=== PATIENT | female | born 1930 | race Caucasian/White ===

== ENCOUNTER → 2017-01-11 | Outpatient (REF) | payer MEDICARE, BC, OTHER ==
[~2017-01-11] MED LIST: ACET500C PO; ALLE180T33 PO; ALLOPOW4 PO; ALPH300C PO; ALTA10CA OR; AMIT25TA2 OR; ATOR1TAB21 PO; BABY81CH OR; BACLOFEN PO; BIOT1CAP2 PO; CALC250T PO; CALC600T7 PO; COLA100C2 OR; FERR325T OR; FIBEPOW PO; FIBER THERAPY PO; FISH500C PO; FLUV40CA PO; FURO80TA2 OR; GABA300C3 PO; GABA600T3 OR; GLUC500T3 OR; GLUCTAB6 PO; GOUT MED PO; KLOR20PO PO; LASI80TA OR; LEVO25TA34 PO; LOSA100T36 PO; LOTRCRE TOP; LOVA20TA2 OR; MAGN250T OR; MOME50SP; MULTIVIT PO; MYRB25TA PO; NEUR100C OR; OMEGA FISH OIL PO; OMEP20TA7 PO; OSTEO BIOFLEX PO; OYST500T OR; PRED5TAB PO; PROCRIT3000 MG/ML IJ; STOO100C PO; TRIC145T19 PO; VITA100T OR; VITA200016 PO; VOLT1GEL24 TD; [UNRECOGNIZED DRUG - CODE] OR; [UNRECOGNIZED DRUG - OTHER]; [UNRECOGNIZED DRUG - OTHER] PO; [UNRECOGNIZED DRUG - REMARK] PO; vicodin OR
== END ==
LOC: M LAB REF 15:01
PROVIDERS: ATTEND Internal Medicine
DX: E78.2 Mixed hyperlipidemia (principal)

== ENCOUNTER → 2017-02-07 | Outpatient (CLI) | payer MEDICARE, BC, OTHER ==
[~2017-02-07] MED LIST changes: +GABA-282 PO; -GABA300C3 PO
--- NOTE | 2017-02-12 01:41 | ECWPNPC ---
PATIENT NAME: JULIO GALLARDO : 1930 GENDER: FEMALE VISIT DATE: 02/07/2017 DISCHARGE DATE: 02/07/17 1040 VISIT LOCKED DATE TIME: PHYSICIAN: MISAEL BLAND RESOURCE: MISAEL BLAND REASON FOR APPOINTMENT 1. BACK HISTORY OF PRESENT ILLNESS HISTORY OF PRESENT ILLNESS: PAIN THE PATIENT DESCRIBES THE PAIN... FALL RISK SCREENING: SCREENING :NO FALLS IN THE PAST YEAR TODAY'S VISIT: NOTES: RATES PAIN TODAY . IS CURRENTLY ATTENDING PHYSICAL THERAPY FOR THE BACK. IS FINDING THAT THIS HAS HELPFUL FOR BALANCE, QUAD STRENGTHENING AND HAS HELPED IMPROVE PAIN CONTROL. IS DOING HOME EXERCISE PROGRAM. HAS INCREASED WALING TO 4-6000 STEPS PER DAY. . CURRENT MEDICATIONS TAKING ALLOPURINOL 100 MG TABLET 2 ORALLY ONCE A DAY, NOTES: 06-17-161199 TAKING FUROSEMIDE 80 MG TABLET 2 TABLETS ORALLY BID, NOTES: 06-17-16899 TAKING OMEPRAZOLE 20 MG TABLET DELAYED RELEASE 1 ORALLY BID, NOTES: 06-17-16-0 TAKING FERROUS SULFATE 325 (65 FE) MG TABLET 1 TABLET ORALLY ONCE A DAY, NOTES: 06-17-161199 TAKING LOSARTAN POTASSIUM 100 MG TABLET 1 TABLET ORALLY ONCE A DAY, NOTES: 06-17-16899 TAKING POTASSIUM CHLORIDE ER 10 MEQ CAPSULE EXTENDED RELEASE 2 CAPSULES WITH FOOD ORALLY DAILY, NOTES: 06-17-16899 TAKING GABAPENTIN 300 MG CAPSULE 1 CAPSULE IN A.M. 2 CAPS AT BEDTIME ORALLY , NOTES: 06-17-161799 TAKING ASPIR-81 81 MG TABLET DELAYED RELEASE 1 TABLET ORALLY ONCE A DAY, NOTES: 06-17-16899 TAKING STOOL SOFTENER 100 MG CAPSULE 1 CAPSULE NEEDED ORALLY ONCE A DAY, NOTES: 06-17-161799 TAKING FIBER THERAPY 500 MG TABLET 2 TABLETS NEEDED ORALLY DAILY, NOTES: 06-17-161799 TAKING WOMENS DAILY FORMULA TABLET ORALLY DAILY, NOTES: 06-17-161199 TAKING FISH OIL BURP-LESS 1000 MG CAPSULE 1 CAPSULE ORALLY TWICE A DAY, NOTES: 06-17-16899 TAKING CALCIUM CITRATE-VITAMIN D 500-500 MG-UNIT TABLET CHEWABLE ORALLY TWICE A DAY, NOTES: 06-17-161199 TAKING OSTEO BI-FLEX ADV TRIPLE ST TABLET 1 ORALLY TWICE DAILY, NOTES: 06-17-161199 TAKING TYLENOL EXTRA STRENGTH 500 MG TABLET 2 TABS ORALLY EVERY 6 HRS NEEDED, NOTES: 06-17-16 2200 TAKING VITAMIN D 2000 UNIT TABLET 1 TABLET ORALLY ONCE A DAY, NOTES: 06-17-16 1800 TAKING BIOTIN 5000 MCG TABLET 1 TABLET ORALLY BID, NOTES: 06-17-16 0900 TAKING ATORVASTATIN CALCIUM 20 MG TABLET 1 TAB ORALLY BEFORE BEDTIME, NOTES: 06-17-16 2100 TAKING LEVOTHYROXINE SODIUM 50 MCG TABLET 1 TABLET ORALLY ONCE A DAY, NOTES: 06-16-16 NOT-TAKING VALIUM 5 MG TABLET 1 TABLET ORALLY ON ARRIVAL TO CLINIC FOR TREATMENT MDD=1, NOTES: 06-18-16 1008 NOT-TAKING MAGNESIUM OXIDE 400 MG TABLET ORALLY BID NOT-TAKING LEVOXYL 50 MCG TABLET 1 TABLET ORALLY ONCE A DAY NOT-TAKING DOCUSATE SODIUM 250 MG CAPSULE 1 CAPSULE NEEDED ORALLY ONCE A DAY NOT-TAKING ALPHA LIPOIC ACID 300 MG CAPSULE ORALLY BID NOT-TAKING CLOTRIMAZOLE-BETAMETHASONE 1-0.05 % CREAM 1 APPLICATION TO AFFECTED AREA EXTERNALLY TWICE A DAY NOT-TAKING NASONEX 50 MCG/ACT SUSPENSION 2 SPRAYS IN EACH NOSTRIL NASALLY ONCE A DAY MEDICATION LIST REVIEWED AND RECONCILED WITH THE PATIENT PAST MEDICAL HISTORY HYPERLIPIDEMIA DIABETIC--DIET CONTROLLED INCREASED 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 NO . CHILLS NO . FEVER NO . INFECTION: DO YOU HAVE NEW INFECTIONS? NO . DO YOU HAVE HISTORY OF MRSA? NO . MUSCULOSKELETAL: ANY NEW PATTERNS OF PAIN OR NUMBNESS? NO . GASTROENTEROLOGY: ANY NEW CHANGE IN BOWEL CONTROL? NO . GENITOURINARY: ANY NEW CHANGE IN BLADDER CONTROL? NO . IS THERE A CHANCE YOU COULD BE ? NO . HEMATOLOGY/LYMPH: DO YOU TAKE ANY BLOOD THINNERS? (FOR EXAMPLE- COUMADIN, PLAVIX, AGGRENOX, PLATEL, PRADAXA, OR XARELTO) NO . WHEN WAS YOUR LAST DOSE? DATE: TIME: . NEUROLOGY: HAVE YOU FALLEN IN THE PAST 6 MONTHS? NO . ANY NEW EXTREMITY NUMBNESS OR WEAKNESS? NO . CARDIOLOGY: DO YOU HAVE A PACEMAKER OR DEFIBRILLATOR? NO . RESPIRATORY: HAVE YOU BEEN SICK IN THE PAST WEEK? NO . FEVER NO . FLU LIKE SYMPTOMS? NO . COUGH NO . INTEGUMENTARY: DO YOU HAVE ANY RASHES OR OPEN SORES? NO . ALLERGIC/IMMUNO: ARE YOU ALLERGIC TO SHELLFISH OR IV DYE? NO . ANY NEW ALLERGIES? NO . PSYCHIATRIC: DO YOU HAVE THOUGHTS OF HURTING YOURSELF OR SOMEONE ELSE? NO . ARE YOU ABUSED, NEGLECTED, OR IN AN UNSAFE ENVIRONMENT? NO . ENDOCRINOLOGY: ARE YOU DIABETIC? YES--DIET CONTROLLED . OTHER: DO YOU NEED ANY PRESCRIPTIONS? NO . IF YES, PLEASE LIST: ____ . ANY NEW PROBLEMS WITH YOUR MEDICATIONS? NO . WHEN DID YOU LAST EAT? ____ . WHEN DID YOU LAST DRINK? ____ . WHAT DID YOU LAST DRINK? ____ . NAME OF PERSON DRIVING YOU HOME? ____ . DO YOU HAVE ANY OTHER QUESTIONS OR CONCERNS NO . REVIEWED BY: PROVIDER: MISAEL LUCIO . VITAL SIGNS WT 215.8 LBS, HT 61 IN, BMI 40.77 INDEX, BP 163/67 MM HG, HR 71 /MIN, RR 18 /MIN, TEMP 97.6 F, OXYGEN SAT % 96%, NA INITIALS TL 0951, REVIEWED BY: AD. EXAMINATION GENERAL EXAMINATION: PSYCHALERT , ORIENTED X 3 , APPROPRIATE MOOD AND AFFECT . LUNGS:CLEAR TO AUSCULTATION BILATERALLY. HEART:HEART RATE REGULAR. MUSCULOSKELETAL:MUSCLE STRENGTH TESTING 5/5 BILATERAL LOWER EXTREMITIES. NEGATIVE FOR PAIN OVER LOW BACK AND SACRUM. ABLE TO RISE TO STANDING POSITION WITH MINIMAL DIFFICULTY. POSTURE UPRIGHT. GAIT NONANTALGIC. TENDER TO PALPATION BILATERALLY OVER KNEES.. EXTREMITIES:SUPPORT STOCKINGS IN PLACE BILATERALLY. NO LOWER EXTREMITY EDEMA.. 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 CONTINUE PHYSICAL THERAPY. CONTINUE EXERCISES AND STRETCHETCHES AT HOME. PLAN TO HAVE BACK INJECTION IN MAY. CALL IF BACK INCREASES., FALLS CARE PLAN: 1. RECOMMEND REMOVING ALL THROW RUGS. 2. RECOMMEND NIGHT LIGHTS 3. RECOMMEND WEARING RUBBER SOLED SHOES AND TO NOT GO BAREFOOT. 4.. ADVISED TO CHANGE POSITION SLOWLY FROM SUPINE TO STANDING TO AVOID DIZZINESS. 5. ADVISED TO USE ASSISTIVE DEVICE SUCH CANE WHEN NEEDED. 6. KEEP PORTABLE PHONE CLOSE TO HAND., #128 - SCREENING BMI AND F/U PLAN IN : BMI ABOVE NORMAL TODAY. DISCUSSED WITH PATIENT NUTRITIONAL FOOD CHOICES TO ASSIST WITH WEIGHT LOSS. RECCOMMENDED REDUCING SALT, SUGAR, SODA INTAKE. RECOMMEND INCREASE ACTIVITY TO INCLUDE WALKING ON A REGULAR BASIS. PROCEDURE CODES FA211 ESTABILISHED PATIENT [facility] FACILITY CHARGE G8783 BP SCR PRFRM RCMDD DEFIND SCR INTVL G8730 PAIN ASSESS POS TOOL F/U PLAN DOC 3016F PT SCRND UNHLTHY OH USE 1124F ACP DISCUSS-NO DSCNMKR DOCD 1036F TOBACCO NON-USER 0518F FALL PLAN OF CARE DOCD G8427 DOC MEDS VERIFIED W/PT OR RE G8417 BMI >=30 CALCUATE W/FOLLOWUP 3288F FALL RISK ASSESSMENT DOCD DISPOSITION & COMMUNICATION FOLLOW UP MID APRIL ELECTRONICALLY SIGNED BY GELACIO COE ON 02/11/2017 AT 01:28 PM EDT DISCLAIMER : THIS IS A VISIT SUMMARY EXTRACTED FROM THE [employer] CHART. IT IS NOT A COPY OF THE [employer] PROGRESS NOTE. MTDD
== END ==
LOC: M PAIN 09:40
PROVIDERS: ATTEND Nurse Practitioner Family
DX: Z09 Encounter for follow-up examination after completed treatment for conditions other than malignant neoplasm (principal); G89.29 Other chronic pain; M47.816 Spondylosis without myelopathy or radiculopathy, lumbar region; M47.817 Spondylosis without myelopathy or radiculopathy, lumbosacral region; M25.561 Pain in right knee; M25.562 Pain in left knee; E78.5 Hyperlipidemia, unspecified; E11.9 Type 2 diabetes mellitus without complications; E78.1 Pure hyperglyceridemia; K44.9 Diaphragmatic hernia without obstruction or gangrene; N18.9 Chronic kidney disease, unspecified; Z88.0 Allergy status to penicillin; Z88.8 Allergy status to other drugs, medicaments and biological substances; Z79.82 Long term (current) use of aspirin; Z79.899 Other long term (current) drug therapy

== ENCOUNTER → 2017-04-30 | Outpatient (CLI) | payer MEDICARE, BC, OTHER ==
[~2017-04-30] MED LIST changes: +VOLT1GEL15 TD; -VOLT1GEL24 TD
--- NOTE | 2017-05-21 00:52 | ECWPNPC ---
PATIENT NAME: JULIO GALLARDO : 1930 GENDER: FEMALE VISIT DATE: 04/30/2017 DISCHARGE DATE: 04/30/17 1230 VISIT LOCKED DATE TIME: PHYSICIAN: MISAEL BLAND RESOURCE: MISAEL BLAND HISTORY OF PRESENT ILLNESS HISTORY OF PRESENT ILLNESS: PAIN THE PATIENT DESCRIBES THE PAIN... FALL RISK SCREENING: SCREENING :NO FALLS IN THE PAST YEAR TODAY'S VISIT: NOTES: RATES PAIN TODAY 6/10. NOTES PAIN IS CENTERED AT LOW BACK WITH RADIATION TO SACRUM AND DOWN BOTH LEGS TO LEVEL OF FEET. . CURRENT MEDICATIONS TAKING FUROSEMIDE 80 MG TABLET 2 TABLETS ORALLY BID TAKING ALLOPURINOL 100 MG TABLET 2 ORALLY ONCE A DAY TAKING OMEPRAZOLE 20 MG TABLET DELAYED RELEASE 1 ORALLY BID TAKING FERROUS SULFATE 325 (65 FE) MG TABLET 1 TABLET ORALLY ONCE A DAY TAKING LOSARTAN POTASSIUM 100 MG TABLET 1 TABLET ORALLY ONCE A DAY TAKING POTASSIUM CHLORIDE ER 10 MEQ CAPSULE EXTENDED RELEASE 2 CAPSULES WITH FOOD ORALLY DAILY TAKING GABAPENTIN 300 MG CAPSULE 1 CAPSULE IN A.M. 2 CAPS AT BEDTIME ORALLY TAKING ASPIR-81 81 MG TABLET DELAYED RELEASE 1 TABLET ORALLY ONCE A DAY TAKING STOOL SOFTENER 100 MG CAPSULE 1 CAPSULE NEEDED ORALLY ONCE A DAY TAKING FIBER THERAPY 500 MG TABLET 2 TABLETS NEEDED ORALLY DAILY TAKING WOMENS DAILY FORMULA TABLET ORALLY DAILY TAKING FISH OIL BURP-LESS 1000 MG CAPSULE 1 CAPSULE ORALLY TWICE A DAY TAKING CALCIUM CITRATE-VITAMIN D 500-500 MG-UNIT TABLET CHEWABLE ORALLY TWICE A DAY TAKING OSTEO BI-FLEX ADV TRIPLE ST TABLET 1 ORALLY TWICE DAILY TAKING TYLENOL EXTRA STRENGTH 500 MG TABLET 2 TABS ORALLY EVERY 6 HRS NEEDED TAKING VITAMIN D 2000 UNIT TABLET 1 TABLET ORALLY ONCE A DAY TAKING BIOTIN 5000 MCG TABLET 1 TABLET ORALLY BID TAKING ATORVASTATIN CALCIUM 20 MG TABLET 1 TAB ORALLY BEFORE BEDTIME TAKING LEVOTHYROXINE SODIUM 50 MCG TABLET 1 TABLET ORALLY ONCE A DAY NOT-TAKING VALIUM 5 MG TABLET 1 TABLET ORALLY ON ARRIVAL TO CLINIC FOR TREATMENT MDD=1, NOTES: 06-18-161007 NOT-TAKING MAGNESIUM OXIDE 400 MG TABLET ORALLY BID NOT-TAKING LEVOXYL 50 MCG TABLET 1 TABLET ORALLY ONCE A DAY NOT-TAKING DOCUSATE SODIUM 250 MG CAPSULE 1 CAPSULE NEEDED ORALLY ONCE A DAY NOT-TAKING ALPHA LIPOIC ACID 300 MG CAPSULE ORALLY BID NOT-TAKING CLOTRIMAZOLE-BETAMETHASONE 1-0.05 % CREAM 1 APPLICATION TO AFFECTED AREA EXTERNALLY TWICE A DAY NOT-TAKING NASONEX 50 MCG/ACT SUSPENSION 2 SPRAYS IN EACH NOSTRIL NASALLY ONCE A DAY MEDICATION LIST REVIEWED AND RECONCILED WITH THE PATIENT PAST MEDICAL HISTORY HYPERLIPIDEMIA DIABETIC--DIET CONTROLLED INCREASED 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 CONSTITUTIONAL: ANY CHANGE IN YOUR MEDICAL CONDITION? NO . CHILLS NO . FEVER NO . INFECTION: DO YOU HAVE NEW INFECTIONS? NO . DO YOU HAVE HISTORY OF MRSA? NO . MUSCULOSKELETAL: ANY NEW PATTERNS OF PAIN OR NUMBNESS? NO I IS HAVING SIGNIFICANT PAIN IN LEGS AND KNEES. SEES NCO. . GASTROENTEROLOGY: ANY NEW CHANGE IN BOWEL CONTROL? NO - HAD RECENT HEMMORROID BANDING WITH DR PECK . GENITOURINARY: ANY NEW CHANGE IN BLADDER CONTROL? NO . IS THERE A CHANCE YOU COULD BE ? NO . HEMATOLOGY/LYMPH: DO YOU TAKE ANY BLOOD THINNERS? (FOR EXAMPLE- COUMADIN, PLAVIX, AGGRENOX, PLATEL, PRADAXA, OR XARELTO) NO . WHEN WAS YOUR LAST DOSE? DATE: TIME: . NEUROLOGY: HAVE YOU FALLEN IN THE PAST 6 MONTHS? NO . ANY NEW EXTREMITY NUMBNESS OR WEAKNESS? NO . CARDIOLOGY: DO YOU HAVE A PACEMAKER OR DEFIBRILLATOR? NO . RESPIRATORY: HAVE YOU BEEN SICK IN THE PAST WEEK? NO . FEVER NO . FLU LIKE SYMPTOMS? NO . SHORTNESS OF BREATH ON EXERTION WAS HAVING TROUBLE WITH WALKING- HAD EVAL BUT NO PROBLEMS FOUND. . COUGH NO . INTEGUMENTARY: DO YOU HAVE ANY RASHES OR OPEN SORES? NO . ALLERGIC/IMMUNO: ARE YOU ALLERGIC TO SHELLFISH OR IV DYE? NO . ANY NEW ALLERGIES? NO . PSYCHIATRIC: DO YOU HAVE THOUGHTS OF HURTING YOURSELF OR SOMEONE ELSE? NO . ARE YOU ABUSED, NEGLECTED, OR IN AN UNSAFE ENVIRONMENT? NO . ENDOCRINOLOGY: ARE YOU DIABETIC? YES - HBA1C - 6.9 . OTHER: DO YOU NEED ANY PRESCRIPTIONS? NO . IF YES, PLEASE LIST: ____ . ANY NEW PROBLEMS WITH YOUR MEDICATIONS? NO . WHEN DID YOU LAST EAT? ____ . WHEN DID YOU LAST DRINK? ____ . WHAT DID YOU LAST DRINK? ____ . NAME OF PERSON DRIVING YOU HOME? ____ . DO YOU HAVE ANY OTHER QUESTIONS OR CONCERNS NO . VITAL SIGNS WT 219 LBS, HT 61 IN, BMI 41.38 INDEX, BP 154/67 MM HG, HR 69 /MIN, RR 20 /MIN, TEMP 97.8 F, OXYGEN SAT % 94%, NA INITIALS TL 1150, REVIEWED BY: KGPATIENT WAS WEIGHED ON PMC SCALE- TL. EXAMINATION GENERAL EXAMINATION: PSYCHALERT , ORIENTED X 3 , APPROPRIATE MOOD AND AFFECT . LUNGS:CLEAR TO AUSCULTATION BILATERALLY. HEART:HEART RATE REGULAR. MUSCULOSKELETAL:POINT TENDERNESS OVER LSA L>R. AND ACROSS THE SACRUM. . JOINTS:BILATERAL, KNEE , PAIN , SWELLING L>R. 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 PAIN IN RIGHT KNEE - M25.561 PAIN IN LEFT KNEE - M25.562 OTHER CHRONIC PAIN - G89.29 TREATMENT SPONDYLOSIS OF LUMBAR REGION WITHOUT MYELOPATHY OR RADICULOPATHY INJECTION FACET JOINT/NERVE LUMBAR/SACRAL (ORDERED FOR 04/30/2017)MISAEL BLAND 04/30/2017 12:16:26 PM > BILATERAL THERAPEUTIC LUMBAR FACET BLOCK L4-5 AND L5-S1 PROCEDURE CODES FA211 ESTABILISHED PATIENT [facility] FACILITY CHARGE G8730 PAIN ASSESS POS TOOL F/U PLAN DOC G8427 DOC MEDS VERIFIED W/PT OR RE DISPOSITION & COMMUNICATION FOLLOW UP DO INJECTION TOWARD END OF MAY - FOLLOWUP AFTER (REASON: [facility] AUTH BILATERAL THERAPEUTIC LUMBAR FACET BLOCK L4-5 AND L5-S1) ELECTRONICALLY SIGNED BY GELACIO COE ON 05/20/2017 AT 08:21 AM EDT DISCLAIMER : THIS IS A VISIT SUMMARY EXTRACTED FROM THE [employer] CHART. IT IS NOT A COPY OF THE [employer] PROGRESS NOTE. MICHELLE
== END ==
LOC: M PAIN 11:40
PROVIDERS: ATTEND Nurse Practitioner Family
DX: M47.816 Spondylosis without myelopathy or radiculopathy, lumbar region (principal); M47.817 Spondylosis without myelopathy or radiculopathy, lumbosacral region; M25.561 Pain in right knee; M25.562 Pain in left knee; G89.29 Other chronic pain; Z79.82 Long term (current) use of aspirin; Z79.899 Other long term (current) drug therapy; Z88.0 Allergy status to penicillin; Z88.6 Allergy status to analgesic agent

== ENCOUNTER → 2017-06-19 | Outpatient (CLI) | payer MEDICARE, BC, OTHER ==
[~2017-06-19] MED LIST changes: +BUPIVACAINE HCL 0.25% 30 ML VIAL As Ordered ONE; +ISOVUE-M 300 61% 15ML VIAL (Q9967) As Ordered ONE; +LIDOCAINE 1% SDV INJ 30 ML VIAL As Ordered ONE; +TRIAMCINOLONE ACETONIDE SUSP 40 MG/ML VIAL (J3301) As Ordered ONE
--- NOTE | 2017-06-19 16:26 | REP ---
FACET BLOCK: The images were reviewed with Dr. Yi. The patient has a history of low back pain. The portable C-Arm was provided in the OR for Dr. Becker for fluoroscopic guidance. Two intraoperative fluoroscopic spot films were obtained using last image hold technology for needle placement verification for bilateral lumbar facet injection. The films are on the PACs system and are available for review. 45 seconds of fluoroscopy time was utilized for this procedure. Reviewed by RUBINA Wade 06/20/2017 05:27 PEdited and Signed by Rosendo Yi MD 06/21/2017 04:56 P
--- NOTE | 2017-07-09 01:59 | ECWPNPC ---
PATIENT NAME: JULIO GALLARDO : 1930 GENDER: FEMALE VISIT DATE: 06/19/2017 DISCHARGE DATE: 06/19/17 1139 VISIT LOCKED DATE TIME: PHYSICIAN: ABIDA BISHOP RESOURCE: ABIDA BISHOP REASON FOR APPOINTMENT 1. BILATERAL THERAPEUTIC LUMBAR FACET BLOCK HISTORY OF PRESENT ILLNESS HISTORY OF PRESENT ILLNESS: PAIN THE PATIENT DESCRIBES THE PAIN... FALL RISK SCREENING: SCREENING :NO FALLS IN THE PAST YEAR CURRENT MEDICATIONS TAKING FUROSEMIDE 80 MG TABLET 2 TABLETS ORALLY BID, NOTES: 06/18/171800 TAKING ALLOPURINOL 100 MG TABLET 2 ORALLY ONCE A DAY, NOTES: 06/18/17@100 TAKING OMEPRAZOLE 20 MG TABLET DELAYED RELEASE 1 ORALLY BID, NOTES: 06/18/17 TAKING FERROUS SULFATE 325 (65 FE) MG TABLET 1 TABLET ORALLY ONCE A DAY, NOTES: TAKING LOSARTAN POTASSIUM 100 MG TABLET 1 TABLET ORALLY ONCE A DAY, NOTES: 06/18/17@999 TAKING POTASSIUM CHLORIDE ER 10 MEQ CAPSULE EXTENDED RELEASE 2 CAPSULES WITH FOOD ORALLY DAILY, NOTES: 06/18/17 TAKING GABAPENTIN 300 MG CAPSULE 1 CAPSULE IN A.M. 2 CAPS AT BEDTIME ORALLY , NOTES: 06/18/17 TAKING ASPIR-81 81 MG TABLET DELAYED RELEASE 1 TABLET ORALLY ONCE A DAY, NOTES: 06/18/17@999 TAKING STOOL SOFTENER 100 MG CAPSULE 1 CAPSULE NEEDED ORALLY ONCE A DAY, NOTES: 06/18/17 TAKING FIBER THERAPY 500 MG TABLET 2 TABLETS NEEDED ORALLY DAILY, NOTES: 06/18/17 TAKING WOMENS DAILY FORMULA TABLET ORALLY DAILY, NOTES: 06/18/17@1199 TAKING FISH OIL BURP-LESS 1000 MG CAPSULE 1 CAPSULE ORALLY TWICE A DAY, NOTES: 06/18/17 TAKING CALCIUM CITRATE-VITAMIN D 500-500 MG-UNIT TABLET CHEWABLE ORALLY TWICE A DAY, NOTES: 0 TAKING OSTEO BI-FLEX ADV TRIPLE ST TABLET 1 ORALLY TWICE DAILY, NOTES: 06/18/17 TAKING TYLENOL EXTRA STRENGTH 500 MG TABLET 2 TABS ORALLY EVERY 6 HRS NEEDED, NOTES: 06/18/17 TAKING VITAMIN D 2000 UNIT TABLET 1 TABLET ORALLY ONCE A DAY, NOTES: 06/18/17 TAKING BIOTIN 5000 MCG TABLET 1 TABLET ORALLY BID, NOTES: 06/18/17@1000 TAKING ATORVASTATIN CALCIUM 20 MG TABLET 1 TAB ORALLY BEFORE BEDTIME, NOTES: TAKING LEVOTHYROXINE SODIUM 50 MCG TABLET 1 TABLET ORALLY ONCE A DAY, NOTES: 06/19/17@0200 TAKING SUPER B COMPLEX 1 TAB ORALLY DAILY, NOTES: 06/18/17@1000 NOT-TAKING VALIUM 5 MG TABLET 1 TABLET ORALLY ON ARRIVAL TO CLINIC FOR TREATMENT MDD=1, NOTES: 06-18-16 100 NOT-TAKING MAGNESIUM OXIDE 400 MG TABLET ORALLY BID NOT-TAKING LEVOXYL 50 MCG TABLET 1 TABLET ORALLY ONCE A DAY NOT-TAKING DOCUSATE SODIUM 250 MG CAPSULE 1 CAPSULE NEEDED ORALLY ONCE A DAY NOT-TAKING ALPHA LIPOIC ACID 300 MG CAPSULE ORALLY BID NOT-TAKING CLOTRIMAZOLE-BETAMETHASONE 1-0.05 % CREAM 1 APPLICATION TO AFFECTED AREA EXTERNALLY TWICE A DAY NOT-TAKING NASONEX 50 MCG/ACT SUSPENSION 2 SPRAYS IN EACH NOSTRIL NASALLY ONCE A DAY MEDICATION LIST REVIEWED AND RECONCILED WITH THE PATIENT PAST MEDICAL HISTORY HYPERLIPIDEMIA DIABETIC--DIET CONTROLLED INCREASED 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 CONSTITUTIONAL: ANY CHANGE IN YOUR MEDICAL CONDITION? NO . CHILLS NO . FEVER NO . INFECTION: DO YOU HAVE NEW INFECTIONS? NO . DO YOU HAVE HISTORY OF MRSA? NO . MUSCULOSKELETAL: ANY NEW PATTERNS OF PAIN OR NUMBNESS? NO . GASTROENTEROLOGY: ANY NEW CHANGE IN BOWEL CONTROL? NO . GENITOURINARY: ANY NEW CHANGE IN BLADDER CONTROL? NO . IS THERE A CHANCE YOU COULD BE ? NO . HEMATOLOGY/LYMPH: DO YOU TAKE ANY BLOOD THINNERS? (FOR EXAMPLE- COUMADIN, PLAVIX, AGGRENOX, PLATEL, PRADAXA, OR XARELTO) NO . WHEN WAS YOUR LAST DOSE? DATE: TIME: . NEUROLOGY: HAVE YOU FALLEN IN THE PAST 6 MONTHS? NO . ANY NEW EXTREMITY NUMBNESS OR WEAKNESS? NO . CARDIOLOGY: DO YOU HAVE A PACEMAKER OR DEFIBRILLATOR? NO . RESPIRATORY: HAVE YOU BEEN SICK IN THE PAST WEEK? NO . FEVER NO . FLU LIKE SYMPTOMS? NO . COUGH NO . INTEGUMENTARY: DO YOU HAVE ANY RASHES OR OPEN SORES? NO . ALLERGIC/IMMUNO: ARE YOU ALLERGIC TO SHELLFISH OR IV DYE? NO . ANY NEW ALLERGIES? NO . PSYCHIATRIC: DO YOU HAVE THOUGHTS OF HURTING YOURSELF OR SOMEONE ELSE? NO . ARE YOU ABUSED, NEGLECTED, OR IN AN UNSAFE ENVIRONMENT? NO . ENDOCRINOLOGY: ARE YOU DIABETIC? YES . OTHER: DO YOU NEED ANY PRESCRIPTIONS? NO . IF YES, PLEASE LIST: ____ . ANY NEW PROBLEMS WITH YOUR MEDICATIONS? NO . WHEN DID YOU LAST EAT? ____06/18/17 . WHEN DID YOU LAST DRINK? ____0215 . WHAT DID YOU LAST DRINK? ____WATER . NAME OF PERSON DRIVING YOU HOME? ____EPIFANIO GALLARDO . DO YOU HAVE ANY OTHER QUESTIONS OR CONCERNS NO . VITAL SIGNS WT 219 LBS, HT 61 IN, BMI 41.38 INDEX, BP 135/60 MM HG, HR 63 /MIN, RR 18 /MIN, TEMP 97.1 F, OXYGEN SAT % 97%, NA INITIALS SC 09:08, REVIEWED BY: VD. ASSESSMENTS SPONDYLOSIS WITHOUT MYELOPATHY OR RADICULOPATHY, LUMBAR REGION - M47.816 (PRIMARY) SPONDYLOSIS WITHOUT MYELOPATHY OR RADICULOPATHY, LUMBOSACRAL REGION - M47.817 PROCEDURES PN LUMBAR FACET BLOCK THERAPEUTIC PRE PROCEDURE DIAGNOSIS LUMBAR SPONDYLOSIS, LUMBOSACRAL SPONDYLOSIS POST PROCEDURE DIAGNOSIS LUMBAR SPONDYLOSIS, LUMBOSACRAL SPONDYLOSIS PROCEDURE BILATERAL L4-L5 AND BILATERAL L5-S1 LUMBAR FACET THERAPEUTIC BLOCK SURGEON DR. ABIDA BISHOP ADVERTISING OPERATIONS COORDINATOR NONE ANESTHESIA LOCAL PRE PROCEDURE NOTE THE PATIENT HAS A HISTORY OF CHRONIC LOW BACK PAIN. I EVALUATE THE PATIENT AND REVIEWED THE CHART. I WENT OVER THE RISKS, ALTERNATIVES, AND BENEFITS ASSOCIATED WITH THIS PROCEDURE. THE PATIENT WOULD LIKE TO PROCEED AND GIVE CONSENT TO PERFORMED THE PROCEDURE. THE PATIENT DENIES UNEXPLAINABLE WEIGHT LOSS, FEVER, CHILLS, OR NEW CHANGES IN URINARY OR BOWEL CONTROL DESCRIPTION OF PROCEDURE THE PATIENT WAS BROUGHT TO THE PROCEDURE ROOM AND PLACED IN THE PRONE POSITION. THE LUMBOSACRAL AREA WAS CLEANED WITH CHLORAPREP SOLUTION AND DRAPED ASEPTICALLY. THE PROCEDURE WAS DONE UNDER STERILE CONDITIONS. I CHECKED LATERALITY AND THE LEVEL WHERE THE PROCEDURE WAS GOING TO BE PERFORMED WITH THE PATIENT AND THE SUPPORTING STAFF AT THE MOMENT OF THE TIME OUT IN THE PROCEDURE ROOM. UNDER FLUOROSCOPIC GUIDANCE, THE TARGET POINT WAS SELECTED AT THE RIGHT AND LEFT L4-L5 FACET JOINT AND THE RIGHT AND LEFT L5-S1 FACET JOINT. TARGET POINT WAS SELECTED AFTER LATERAL ROTATION AND TILT OF THE MAGNIFIER OF THE C-ARM. LIDOCAINE 0.5% WAS USED TO NUMB THE SKIN AND THE SUBCUTANEOUS TISSUE BELOW IT. SPINAL NEEDLES, 22-GAUGE, WERE ADVANCED UNDER FLUOROSCOPIC GUIDANCE AND FOLLOWING PATIENT FEEDBACK UNTIL THE TARGETS WERE TOUCHED. THE POSITION OF THE NEEDLES WAS VERIFIED WITH AP AND LATERAL VIEWS. AFTER PROPER POSITION OF THE NEEDLES WAS ACHIEVED, ISOVUE-M DYE 30% 0.1 ML WAS INJECTED SHOWING ADEQUATE SPREAD OF THE DYE. THEN A SOLUTION OF 1.9 ML OF BUPIVACAINE 0.125% OF KENALOG 10 MG WAS INJECTED AT EACH SITE. THERE WAS NO EVIDENCE OF BLOOD, PARESTHESIA OR CEREBROSPINAL FLUID DURING THE PROCEDURE. THE PATIENT WAS SENT TO THE RECOVERY ROOM. THE PATIENT WAS MOVING THE EXTREMITIES AND DOING WELL. THERE WAS NO COMPLICATION DURING THE PROCEDURE. FLUOROSCOPY TIME WAS 45 SECONDS POST PROCEDURE NOTE THE PATIENT WILL BE SEEN IN A FOLLOW UP IN THE NEXT FEW WEEKS. INSTRUCTIONS WERE GIVEN, QUESTIONS WERE ANSWERED, AND THE PATIENT EXPRESSED UNDERSTANDING AND AGREES WITH THE PLAN. I MARIE ESTRADA DOCUMENTED THE ABOVE INFORMATION ACTING A VENEER DRIER FEEDER FOR DR. BISHOP. I HAVE REVIEWED THE ABOVE DOCUMENT WRITTEN BY MARIE ESTRADA SCRIBCeleste AND I VERIFY THAT IT IS ACCURATE. DIAGNOSTIC IMAGING [facility] FACET BLOCK (PAIN)[id number] PROCEDURE CODES 11891 INJ PARAVERT F JNT L/S 1 LEV 50115 INJ PARAVERT F JNT L/S 2 LEV 6045F RADXPS IN END [id number] PXD DISPOSITION & COMMUNICATION FOLLOW UP 3 WEEKS ELECTRONICALLY SIGNED BY ABIDA BISHOP MD ON 07/08/2017 AT 11:38 AM EDT DISCLAIMER : THIS IS A VISIT SUMMARY EXTRACTED FROM THE [employer] CHART. IT IS NOT A COPY OF THE [employer] PROGRESS NOTE. MTDD
--- NOTE | 2017-07-10 00:43 | ECWPNPC ---
PATIENT NAME: JULIO GALLARDO : 1930 GENDER: FEMALE VISIT DATE: 06/19/2017 DISCHARGE DATE: 06/19/17 1139 VISIT LOCKED DATE TIME: PHYSICIAN: ABIDA BISHOP RESOURCE: ABIDA BISHOP REASON FOR APPOINTMENT 1. BILATERAL THERAPEUTIC LUMBAR FACET BLOCK HISTORY OF PRESENT ILLNESS HISTORY OF PRESENT ILLNESS: PAIN THE PATIENT DESCRIBES THE PAIN... FALL RISK SCREENING: SCREENING :NO FALLS IN THE PAST YEAR CURRENT MEDICATIONS TAKING FUROSEMIDE 80 MG TABLET 2 TABLETS ORALLY BID, NOTES: 06/18/171800 TAKING ALLOPURINOL 100 MG TABLET 2 ORALLY ONCE A DAY, NOTES: 06/18/17@100 TAKING OMEPRAZOLE 20 MG TABLET DELAYED RELEASE 1 ORALLY BID, NOTES: 06/18/17 TAKING FERROUS SULFATE 325 (65 FE) MG TABLET 1 TABLET ORALLY ONCE A DAY, NOTES: TAKING LOSARTAN POTASSIUM 100 MG TABLET 1 TABLET ORALLY ONCE A DAY, NOTES: 06/18/17@999 TAKING POTASSIUM CHLORIDE ER 10 MEQ CAPSULE EXTENDED RELEASE 2 CAPSULES WITH FOOD ORALLY DAILY, NOTES: 06/18/17 TAKING GABAPENTIN 300 MG CAPSULE 1 CAPSULE IN A.M. 2 CAPS AT BEDTIME ORALLY , NOTES: 06/18/17 TAKING ASPIR-81 81 MG TABLET DELAYED RELEASE 1 TABLET ORALLY ONCE A DAY, NOTES: 06/18/17@999 TAKING STOOL SOFTENER 100 MG CAPSULE 1 CAPSULE NEEDED ORALLY ONCE A DAY, NOTES: 06/18/17 TAKING FIBER THERAPY 500 MG TABLET 2 TABLETS NEEDED ORALLY DAILY, NOTES: 06/18/17 TAKING WOMENS DAILY FORMULA TABLET ORALLY DAILY, NOTES: 06/18/17@1199 TAKING FISH OIL BURP-LESS 1000 MG CAPSULE 1 CAPSULE ORALLY TWICE A DAY, NOTES: 06/18/17 TAKING CALCIUM CITRATE-VITAMIN D 500-500 MG-UNIT TABLET CHEWABLE ORALLY TWICE A DAY, NOTES: 0 TAKING OSTEO BI-FLEX ADV TRIPLE ST TABLET 1 ORALLY TWICE DAILY, NOTES: 06/18/17 TAKING TYLENOL EXTRA STRENGTH 500 MG TABLET 2 TABS ORALLY EVERY 6 HRS NEEDED, NOTES: 06/18/17 TAKING VITAMIN D 2000 UNIT TABLET 1 TABLET ORALLY ONCE A DAY, NOTES: 06/18/17 TAKING BIOTIN 5000 MCG TABLET 1 TABLET ORALLY BID, NOTES: 06/18/17@1000 TAKING ATORVASTATIN CALCIUM 20 MG TABLET 1 TAB ORALLY BEFORE BEDTIME, NOTES: TAKING LEVOTHYROXINE SODIUM 50 MCG TABLET 1 TABLET ORALLY ONCE A DAY, NOTES: 06/19/17@0200 TAKING SUPER B COMPLEX 1 TAB ORALLY DAILY, NOTES: 06/18/17@1000 NOT-TAKING VALIUM 5 MG TABLET 1 TABLET ORALLY ON ARRIVAL TO CLINIC FOR TREATMENT MDD=1, NOTES: 06-18-16 100 NOT-TAKING MAGNESIUM OXIDE 400 MG TABLET ORALLY BID NOT-TAKING LEVOXYL 50 MCG TABLET 1 TABLET ORALLY ONCE A DAY NOT-TAKING DOCUSATE SODIUM 250 MG CAPSULE 1 CAPSULE NEEDED ORALLY ONCE A DAY NOT-TAKING ALPHA LIPOIC ACID 300 MG CAPSULE ORALLY BID NOT-TAKING CLOTRIMAZOLE-BETAMETHASONE 1-0.05 % CREAM 1 APPLICATION TO AFFECTED AREA EXTERNALLY TWICE A DAY NOT-TAKING NASONEX 50 MCG/ACT SUSPENSION 2 SPRAYS IN EACH NOSTRIL NASALLY ONCE A DAY MEDICATION LIST REVIEWED AND RECONCILED WITH THE PATIENT PAST MEDICAL HISTORY HYPERLIPIDEMIA DIABETIC--DIET CONTROLLED INCREASED 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 CONSTITUTIONAL: ANY CHANGE IN YOUR MEDICAL CONDITION? NO . CHILLS NO . FEVER NO . INFECTION: DO YOU HAVE NEW INFECTIONS? NO . DO YOU HAVE HISTORY OF MRSA? NO . MUSCULOSKELETAL: ANY NEW PATTERNS OF PAIN OR NUMBNESS? NO . GASTROENTEROLOGY: ANY NEW CHANGE IN BOWEL CONTROL? NO . GENITOURINARY: ANY NEW CHANGE IN BLADDER CONTROL? NO . IS THERE A CHANCE YOU COULD BE ? NO . HEMATOLOGY/LYMPH: DO YOU TAKE ANY BLOOD THINNERS? (FOR EXAMPLE- COUMADIN, PLAVIX, AGGRENOX, PLATEL, PRADAXA, OR XARELTO) NO . WHEN WAS YOUR LAST DOSE? DATE: TIME: . NEUROLOGY: HAVE YOU FALLEN IN THE PAST 6 MONTHS? NO . ANY NEW EXTREMITY NUMBNESS OR WEAKNESS? NO . CARDIOLOGY: DO YOU HAVE A PACEMAKER OR DEFIBRILLATOR? NO . RESPIRATORY: HAVE YOU BEEN SICK IN THE PAST WEEK? NO . FEVER NO . FLU LIKE SYMPTOMS? NO . COUGH NO . INTEGUMENTARY: DO YOU HAVE ANY RASHES OR OPEN SORES? NO . ALLERGIC/IMMUNO: ARE YOU ALLERGIC TO SHELLFISH OR IV DYE? NO . ANY NEW ALLERGIES? NO . PSYCHIATRIC: DO YOU HAVE THOUGHTS OF HURTING YOURSELF OR SOMEONE ELSE? NO . ARE YOU ABUSED, NEGLECTED, OR IN AN UNSAFE ENVIRONMENT? NO . ENDOCRINOLOGY: ARE YOU DIABETIC? YES . OTHER: DO YOU NEED ANY PRESCRIPTIONS? NO . IF YES, PLEASE LIST: ____ . ANY NEW PROBLEMS WITH YOUR MEDICATIONS? NO . WHEN DID YOU LAST EAT? ____06/18/17 . WHEN DID YOU LAST DRINK? ____0215 . WHAT DID YOU LAST DRINK? ____WATER . NAME OF PERSON DRIVING YOU HOME? ____EPIFANIO GALLARDO . DO YOU HAVE ANY OTHER QUESTIONS OR CONCERNS NO . VITAL SIGNS WT 219 LBS, HT 61 IN, BMI 41.38 INDEX, BP 135/60 MM HG, HR 63 /MIN, RR 18 /MIN, TEMP 97.1 F, OXYGEN SAT % 97%, NA INITIALS SC 09:08, REVIEWED BY: VD. ASSESSMENTS SPONDYLOSIS WITHOUT MYELOPATHY OR RADICULOPATHY, LUMBAR REGION - M47.816 (PRIMARY) SPONDYLOSIS WITHOUT MYELOPATHY OR RADICULOPATHY, LUMBOSACRAL REGION - M47.817 PROCEDURES PN LUMBAR FACET BLOCK THERAPEUTIC PRE PROCEDURE DIAGNOSIS LUMBAR SPONDYLOSIS, LUMBOSACRAL SPONDYLOSIS POST PROCEDURE DIAGNOSIS LUMBAR SPONDYLOSIS, LUMBOSACRAL SPONDYLOSIS PROCEDURE BILATERAL L4-L5 AND BILATERAL L5-S1 LUMBAR FACET THERAPEUTIC BLOCK SURGEON DR. ABIDA BISHOP MICROSTRATEGY BI DEVELOPER NONE ANESTHESIA LOCAL PRE PROCEDURE NOTE THE PATIENT HAS A HISTORY OF CHRONIC LOW BACK PAIN. I EVALUATE THE PATIENT AND REVIEWED THE CHART. I WENT OVER THE RISKS, ALTERNATIVES, AND BENEFITS ASSOCIATED WITH THIS PROCEDURE. THE PATIENT WOULD LIKE TO PROCEED AND GIVE CONSENT TO PERFORMED THE PROCEDURE. THE PATIENT DENIES UNEXPLAINABLE WEIGHT LOSS, FEVER, CHILLS, OR NEW CHANGES IN URINARY OR BOWEL CONTROL DESCRIPTION OF PROCEDURE THE PATIENT WAS BROUGHT TO THE PROCEDURE ROOM AND PLACED IN THE PRONE POSITION. THE LUMBOSACRAL AREA WAS CLEANED WITH CHLORAPREP SOLUTION AND DRAPED ASEPTICALLY. THE PROCEDURE WAS DONE UNDER STERILE CONDITIONS. I CHECKED LATERALITY AND THE LEVEL WHERE THE PROCEDURE WAS GOING TO BE PERFORMED WITH THE PATIENT AND THE SUPPORTING STAFF AT THE MOMENT OF THE TIME OUT IN THE PROCEDURE ROOM. UNDER FLUOROSCOPIC GUIDANCE, THE TARGET POINT WAS SELECTED AT THE RIGHT AND LEFT L4-L5 FACET JOINT AND THE RIGHT AND LEFT L5-S1 FACET JOINT. TARGET POINT WAS SELECTED AFTER LATERAL ROTATION AND TILT OF THE MAGNIFIER OF THE C-ARM. LIDOCAINE 0.5% WAS USED TO NUMB THE SKIN AND THE SUBCUTANEOUS TISSUE BELOW IT. SPINAL NEEDLES, 22-GAUGE, WERE ADVANCED UNDER FLUOROSCOPIC GUIDANCE AND FOLLOWING PATIENT FEEDBACK UNTIL THE TARGETS WERE TOUCHED. THE POSITION OF THE NEEDLES WAS VERIFIED WITH AP AND LATERAL VIEWS. AFTER PROPER POSITION OF THE NEEDLES WAS ACHIEVED, ISOVUE-M DYE 30% 0.1 ML WAS INJECTED SHOWING ADEQUATE SPREAD OF THE DYE. THEN A SOLUTION OF 1.9 ML OF BUPIVACAINE 0.125% OF KENALOG 10 MG WAS INJECTED AT EACH SITE. THERE WAS NO EVIDENCE OF BLOOD, PARESTHESIA OR CEREBROSPINAL FLUID DURING THE PROCEDURE. THE PATIENT WAS SENT TO THE RECOVERY ROOM. THE PATIENT WAS MOVING THE EXTREMITIES AND DOING WELL. THERE WAS NO COMPLICATION DURING THE PROCEDURE. FLUOROSCOPY TIME WAS 45 SECONDS POST PROCEDURE NOTE THE PATIENT WILL BE SEEN IN A FOLLOW UP IN THE NEXT FEW WEEKS. INSTRUCTIONS WERE GIVEN, QUESTIONS WERE ANSWERED, AND THE PATIENT EXPRESSED UNDERSTANDING AND AGREES WITH THE PLAN. I MARIE ESTRADA DOCUMENTED THE ABOVE INFORMATION ACTING A AUTOMATIC EDGER FOR DR. BISHOP. I HAVE REVIEWED THE ABOVE DOCUMENT WRITTEN BY MARIE ESTRADA SCRIBCeleste AND I VERIFY THAT IT IS ACCURATE. DIAGNOSTIC IMAGING [facility] FACET BLOCK (PAIN)[id number] PROCEDURE CODES 69114 INJ PARAVERT F JNT L/S 1 LEV 52184 INJ PARAVERT F JNT L/S 2 LEV 6045F RADXPS IN END [id number] [id number] DISPOSITION & COMMUNICATION FOLLOW UP 3 WEEKS ELECTRONICALLY SIGNED BY ABIDA BISHOP MD ON 07/08/2017 AT 11:38 AM EDT DISCLAIMER : THIS IS A VISIT SUMMARY EXTRACTED FROM THE [employer] CHART. IT IS NOT A COPY OF THE [employer] PROGRESS NOTE. MTDD
== END ==
LOC: M PAIN 09:00
PROVIDERS: ATTEND Anesthesiology
DX: G89.29 Other chronic pain (principal); M47.816 Spondylosis without myelopathy or radiculopathy, lumbar region; M47.817 Spondylosis without myelopathy or radiculopathy, lumbosacral region; E78.5 Hyperlipidemia, unspecified; E11.9 Type 2 diabetes mellitus without complications; N18.9 Chronic kidney disease, unspecified; Z88.0 Allergy status to penicillin; Z88.8 Allergy status to other drugs, medicaments and biological substances; Z79.82 Long term (current) use of aspirin; Z79.899 Other long term (current) drug therapy
CPT/HCPCS: 64493; 64494; J3301; Q9967

== ENCOUNTER → 2017-07-03 | Outpatient (CLI) | payer MEDICARE, BC, OTHER ==
[~2017-07-03] MED LIST changes: -BUPIVACAINE HCL 0.25% 30 ML VIAL As Ordered ONE; -ISOVUE-M 300 61% 15ML VIAL (Q9967) As Ordered ONE; -LIDOCAINE 1% SDV INJ 30 ML VIAL As Ordered ONE; -TRIAMCINOLONE ACETONIDE SUSP 40 MG/ML VIAL (J3301) As Ordered ONE
--- NOTE | 2017-07-03 23:47 | ECWPNPC ---
PATIENT NAME: JULIO GALLARDO : 1930 GENDER: FEMALE VISIT DATE: 07/03/2017 DISCHARGE DATE: 07/03/17 1218 VISIT LOCKED DATE TIME: PHYSICIAN: MISAEL BLAND RESOURCE: MISAEL BLAND REASON FOR APPOINTMENT 1. POST PROCEDURE HISTORY OF PRESENT ILLNESS HISTORY OF PRESENT ILLNESS: PAIN THE PATIENT DESCRIBES THE PAIN... FALL RISK SCREENING: SCREENING :NO FALLS IN THE PAST YEAR TODAY'S VISIT: NOTES: S/P BILATERAL THERAPEUTIC LUMBAR FACET BLOCK COMPLETED ON 06/19/17.RATES PAIN TODAY 6-7/10. PAIN LEVEL PRIOR TO INJECTION WAS 7-8/10 - POST INJECTION WAS 2-3/10 FOR A WEEK. THEN PAIN INCREASED BACK TO BASELINE. REPORTS PAIN IS RADIATING TO BOTH LEGS TO THE LEVEL OF THE FEET. LEGS ARE SWELLING AND IS NEEDING TO WEAR HER ELASTIC STOCKINGS. MAGAN Alonso ON TRIP SPENT A LOT OF TIME STANSING AND THIS REALLY EXACERBATED THE PAIN . CURRENT MEDICATIONS TAKING FUROSEMIDE 80 MG TABLET 2 TABLETS ORALLY BID TAKING ALLOPURINOL 100 MG TABLET 2 ORALLY ONCE A DAY TAKING OMEPRAZOLE 20 MG TABLET DELAYED RELEASE 1 ORALLY BID TAKING FERROUS SULFATE 325 (65 FE) MG TABLET 1 TABLET ORALLY ONCE A DAY TAKING LOSARTAN POTASSIUM 100 MG TABLET 1 TABLET ORALLY ONCE A DAY TAKING POTASSIUM CHLORIDE ER 10 MEQ CAPSULE EXTENDED RELEASE 2 CAPSULES WITH FOOD ORALLY DAILY TAKING GABAPENTIN 300 MG CAPSULE 1 CAPSULE IN A.M. 2 CAPS AT BEDTIME ORALLY TAKING ASPIR-81 81 MG TABLET DELAYED RELEASE 1 TABLET ORALLY ONCE A DAY TAKING STOOL SOFTENER 100 MG CAPSULE 1 CAPSULE NEEDED ORALLY ONCE A DAY TAKING FIBER THERAPY 500 MG TABLET 2 TABLETS NEEDED ORALLY DAILY TAKING WOMENS DAILY FORMULA TABLET ORALLY DAILY TAKING FISH OIL BURP-LESS 1000 MG CAPSULE 1 CAPSULE ORALLY TWICE A DAY TAKING CALCIUM CITRATE-VITAMIN D 500-500 MG-UNIT TABLET CHEWABLE ORALLY TWICE A DAY TAKING OSTEO BI-FLEX ADV TRIPLE ST TABLET 1 ORALLY TWICE DAILY TAKING TYLENOL EXTRA STRENGTH 500 MG TABLET 2 TABS ORALLY EVERY 6 HRS NEEDED TAKING VITAMIN D 2000 UNIT TABLET 1 TABLET ORALLY ONCE A DAY TAKING BIOTIN 5000 MCG TABLET 1 TABLET ORALLY BID TAKING ATORVASTATIN CALCIUM 20 MG TABLET 1 TAB ORALLY BEFORE BEDTIME TAKING LEVOTHYROXINE SODIUM 50 MCG TABLET 1 TABLET ORALLY ONCE A DAY TAKING SUPER B COMPLEX 1 TAB ORALLY DAILY NOT-TAKING VALIUM 5 MG TABLET 1 TABLET ORALLY ON ARRIVAL TO CLINIC FOR TREATMENT MDD=1 NOT-TAKING MAGNESIUM OXIDE 400 MG TABLET ORALLY BID NOT-TAKING LEVOXYL 50 MCG TABLET 1 TABLET ORALLY ONCE A DAY NOT-TAKING DOCUSATE SODIUM 250 MG CAPSULE 1 CAPSULE NEEDED ORALLY ONCE A DAY NOT-TAKING ALPHA LIPOIC ACID 300 MG CAPSULE ORALLY BID NOT-TAKING CLOTRIMAZOLE-BETAMETHASONE 1-0.05 % CREAM 1 APPLICATION TO AFFECTED AREA EXTERNALLY TWICE A DAY NOT-TAKING NASONEX 50 MCG/ACT SUSPENSION 2 SPRAYS IN EACH NOSTRIL NASALLY ONCE A DAY MEDICATION LIST REVIEWED AND RECONCILED WITH THE PATIENT PAST MEDICAL HISTORY HYPERLIPIDEMIA DIABETIC--DIET CONTROLLED INCREASED 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 CONSTITUTIONAL: ANY CHANGE IN YOUR MEDICAL CONDITION? NO . CHILLS NO . FEVER NO . INFECTION: DO YOU HAVE NEW INFECTIONS? NO . DO YOU HAVE HISTORY OF MRSA? NO . MUSCULOSKELETAL: ANY NEW PATTERNS OF PAIN OR NUMBNESS? NO . GASTROENTEROLOGY: ANY NEW CHANGE IN BOWEL CONTROL? YES, DIARRHEA X 3 DAYS . GENITOURINARY: ANY NEW CHANGE IN BLADDER CONTROL? NO . IS THERE A CHANCE YOU COULD BE ? NO . HEMATOLOGY/LYMPH: DO YOU TAKE ANY BLOOD THINNERS? (FOR EXAMPLE- COUMADIN, PLAVIX, AGGRENOX, PLATEL, PRADAXA, OR XARELTO) NO . WHEN WAS YOUR LAST DOSE? DATE: TIME: . NEUROLOGY: HAVE YOU FALLEN IN THE PAST 6 MONTHS? NO . ANY NEW EXTREMITY NUMBNESS OR WEAKNESS? NO . CARDIOLOGY: DO YOU HAVE A PACEMAKER OR DEFIBRILLATOR? NO . RESPIRATORY: HAVE YOU BEEN SICK IN THE PAST WEEK? NO . FEVER NO . FLU LIKE SYMPTOMS? NO . COUGH NO . INTEGUMENTARY: DO YOU HAVE ANY RASHES OR OPEN SORES? NO . ALLERGIC/IMMUNO: ARE YOU ALLERGIC TO SHELLFISH OR IV DYE? NO . ANY NEW ALLERGIES? NO . PSYCHIATRIC: DO YOU HAVE THOUGHTS OF HURTING YOURSELF OR SOMEONE ELSE? NO . ARE YOU ABUSED, NEGLECTED, OR IN AN UNSAFE ENVIRONMENT? NO . ENDOCRINOLOGY: ARE YOU DIABETIC? YES . OTHER: DO YOU NEED ANY PRESCRIPTIONS? NO . IF YES, PLEASE LIST: ____ . ANY NEW PROBLEMS WITH YOUR MEDICATIONS? NO . WHEN DID YOU LAST EAT? ____ . WHEN DID YOU LAST DRINK? ____ . WHAT DID YOU LAST DRINK? ____ . NAME OF PERSON DRIVING YOU HOME? ____ . DO YOU HAVE ANY OTHER QUESTIONS OR CONCERNS NO . VITAL SIGNS WT 218.4 LBS, HT 61 IN, BMI 41.26 INDEX, BP 128/69 MM HG, HR 69 /MIN, RR 18 /MIN, TEMP 97.4 F, OXYGEN SAT % 96, REVIEWED BY: NL. EXAMINATION GENERAL EXAMINATION: PSYCHALERT , ORIENTED X 3 , APPROPRIATE MOOD AND AFFECT . LUNGS:CLEAR TO AUSCULTATION BILATERALLY. HEART:HEART RATE REGULAR. MUSCULOSKELETAL:POINT TENDERNESS OVER LUMBOSACRAL AXIS AND AT BOTH SACRAL ILIAC JOINTS. CANES USED FOR BALANCE. HAS VERY DIFFICULT TIME RISING TO A STANDING POSITION. POSTURE IS STOOPED AND GAIT ANTALGIC. WEAKNESS IS NOTED WITH BILATERAL QUAD FLEXION RIGHT GREATER THAN LEFT. JOINTS:BILATERAL, KNEE , PAIN , SWELLING L>R. 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 CLINICAL NOTES: DISCUSSION HELD WITH PATIENT REGARDING OPTIONS FOR CARE. 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 WILL CONSIDER ADDITIONAL INTERVENTIONAL TREATMENT SUCH LUMBAR EPIDURAL BUT WILL NEED UPDATED MRI TO GUIDE CARE. LAB WORK FOR RENAL FUNCTION HAS ALREADY BEEN ORDERED BY DR DEL REAL AND SHE IS DUE TO COMPLETE THIS 07/17/17. PROCEDURE CODES FA211 ESTABILISHED PATIENT [facility] FACILITY CHARGE G8730 PAIN ASSESS POS TOOL F/U PLAN DOC G8427 DOC MEDS VERIFIED W/PT OR RE DISPOSITION & COMMUNICATION FOLLOW UP 2 WEEKS AFTER MRI (REASON: CHECK AUTH FOR MRI OF LUMBAR SPINE) ELECTRONICALLY SIGNED BY GELACIO COE ON 07/03/2017 AT 01:11 PM EDT DISCLAIMER : THIS IS A VISIT SUMMARY EXTRACTED FROM THE [employer] CHART. IT IS NOT A COPY OF THE [employer] PROGRESS NOTE. MICHELLE
== END ==
LOC: M PAIN 11:30
PROVIDERS: ATTEND Nurse Practitioner Family
DX: G89.29 Other chronic pain (principal); M47.816 Spondylosis without myelopathy or radiculopathy, lumbar region; M47.817 Spondylosis without myelopathy or radiculopathy, lumbosacral region; M25.561 Pain in right knee; M25.562 Pain in left knee; R19.7 Diarrhea, unspecified; E78.5 Hyperlipidemia, unspecified; E11.9 Type 2 diabetes mellitus without complications; E03.9 Hypothyroidism, unspecified; Z88.0 Allergy status to penicillin; Z88.8 Allergy status to other drugs, medicaments and biological substances; Z79.82 Long term (current) use of aspirin; Z79.899 Other long term (current) drug therapy

== ENCOUNTER → 2017-07-17 | Outpatient (REF) | payer MEDICARE, BC, OTHER ==
[2017-07-17 18:46] LABS: FOLATE > 24.0 NG/ML; VITAMIN B12 LEVEL 916 PG/ML
[2017-07-17 19:22] LABS: FERRITIN 206 NG/ML (8-252); PERCENT SATURATION 16.3 % (13.2-45.0); TOTAL IRON BINDING CAPACITY 252 UG/DL (250-450)
== END ==
LOC: M LAB REF 16:42
PROVIDERS: ATTEND Internal Medicine
DX: D64.9 Anemia, unspecified (principal)

== ENCOUNTER → 2017-08-06 | Outpatient (CLI) | payer MEDICARE, BC, OTHER ==
--- NOTE | 2017-09-02 00:02 | ECWPNPC ---
PATIENT NAME: JULIO GALLARDO : 1930 GENDER: FEMALE VISIT DATE: 08/06/2017 DISCHARGE DATE: 08/06/17 1104 VISIT LOCKED DATE TIME: PHYSICIAN: MISAEL BLAND RESOURCE: MISAEL BLAND HISTORY OF PRESENT ILLNESS HISTORY OF PRESENT ILLNESS: PAIN THE PATIENT DESCRIBES THE PAIN... FALL RISK SCREENING: SCREENING :NO FALLS IN THE PAST YEAR TODAY'S VISIT: NOTES: RATES PAIN LEVEL TODAY 5/10. DESCRIBES PAIN CONSTANT, ACHING AND TENDER. HAS NOT YET HAD MRI OF SPINE - DR DEL REAL IS TELLING US NO DYE DUE TO DECREASED RENAL FUNCTION. STATES HAS GOOD AND BAD DAYS.. CURRENT MEDICATIONS TAKING FUROSEMIDE 80 MG TABLET 2 TABLETS ORALLY BID TAKING ALLOPURINOL 100 MG TABLET 2 ORALLY ONCE A DAY TAKING OMEPRAZOLE 20 MG TABLET DELAYED RELEASE 1 ORALLY BID TAKING FERROUS SULFATE 325 (65 FE) MG TABLET 1 TABLET ORALLY ONCE A DAY TAKING LOSARTAN POTASSIUM 100 MG TABLET 1 TABLET ORALLY ONCE A DAY TAKING POTASSIUM CHLORIDE ER 10 MEQ CAPSULE EXTENDED RELEASE 2 CAPSULES WITH FOOD ORALLY DAILY TAKING GABAPENTIN 300 MG CAPSULE 1 CAPSULE IN A.M. 2 CAPS AT BEDTIME ORALLY TAKING ASPIR-81 81 MG TABLET DELAYED RELEASE 1 TABLET ORALLY ONCE A DAY TAKING STOOL SOFTENER 100 MG CAPSULE 1 CAPSULE NEEDED ORALLY ONCE A DAY TAKING FIBER THERAPY 500 MG TABLET 2 TABLETS NEEDED ORALLY DAILY TAKING WOMENS DAILY FORMULA TABLET ORALLY DAILY TAKING FISH OIL BURP-LESS 1000 MG CAPSULE 1 CAPSULE ORALLY TWICE A DAY TAKING CALCIUM CITRATE-VITAMIN D 500-500 MG-UNIT TABLET CHEWABLE ORALLY TWICE A DAY TAKING OSTEO BI-FLEX ADV TRIPLE ST TABLET 1 ORALLY TWICE DAILY TAKING TYLENOL EXTRA STRENGTH 500 MG TABLET 2 TABS ORALLY EVERY 6 HRS NEEDED TAKING VITAMIN D 2000 UNIT TABLET 1 TABLET ORALLY ONCE A DAY TAKING BIOTIN 5000 MCG TABLET 1 TABLET ORALLY BID TAKING ATORVASTATIN CALCIUM 20 MG TABLET 1 TAB ORALLY BEFORE BEDTIME TAKING LEVOTHYROXINE SODIUM 50 MCG TABLET 1 TABLET ORALLY ONCE A DAY TAKING SUPER B COMPLEX 1 TAB ORALLY DAILY TAKING DULOXETINE HCL 20 MG CAPSULE DELAYED RELEASE PARTICLES 1 CAPSULE ORALLY TWICE A DAY NOT-TAKING VALIUM 5 MG TABLET 1 TABLET ORALLY ON ARRIVAL TO CLINIC FOR TREATMENT MDD=1 NOT-TAKING MAGNESIUM OXIDE 400 MG TABLET ORALLY BID NOT-TAKING LEVOXYL 50 MCG TABLET 1 TABLET ORALLY ONCE A DAY NOT-TAKING DOCUSATE SODIUM 250 MG CAPSULE 1 CAPSULE NEEDED ORALLY ONCE A DAY NOT-TAKING ALPHA LIPOIC ACID 300 MG CAPSULE ORALLY BID NOT-TAKING CLOTRIMAZOLE-BETAMETHASONE 1-0.05 % CREAM 1 APPLICATION TO AFFECTED AREA EXTERNALLY TWICE A DAY NOT-TAKING NASONEX 50 MCG/ACT SUSPENSION 2 SPRAYS IN EACH NOSTRIL NASALLY ONCE A DAY MEDICATION LIST REVIEWED AND RECONCILED WITH THE PATIENT PAST MEDICAL HISTORY HYPERLIPIDEMIA DIABETIC--DIET CONTROLLED INCREASED 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 CONSTITUTIONAL: ANY CHANGE IN YOUR MEDICAL CONDITION? NO . CHILLS NO . FEVER NO . INFECTION: DO YOU HAVE NEW INFECTIONS? NO . DO YOU HAVE HISTORY OF MRSA? NO . MUSCULOSKELETAL: ANY NEW PATTERNS OF PAIN OR NUMBNESS? NO . GASTROENTEROLOGY: ANY NEW CHANGE IN BOWEL CONTROL? NO . GENITOURINARY: ANY NEW CHANGE IN BLADDER CONTROL? NO . IS THERE A CHANCE YOU COULD BE ? NO . HEMATOLOGY/LYMPH: DO YOU TAKE ANY BLOOD THINNERS? (FOR EXAMPLE- COUMADIN, PLAVIX, AGGRENOX, PLATEL, PRADAXA, OR XARELTO) NO . WHEN WAS YOUR LAST DOSE? DATE: TIME: . NEUROLOGY: HAVE YOU FALLEN IN THE PAST 6 MONTHS? NO . ANY NEW EXTREMITY NUMBNESS OR WEAKNESS? NO . CARDIOLOGY: DO YOU HAVE A PACEMAKER OR DEFIBRILLATOR? NO . CHEST PAIN PATIENT DENIES . RESPIRATORY: HAVE YOU BEEN SICK IN THE PAST WEEK? NO . FEVER NO . FLU LIKE SYMPTOMS? NO . COUGH NO . INTEGUMENTARY: DO YOU HAVE ANY RASHES OR OPEN SORES? NO . ALLERGIC/IMMUNO: ARE YOU ALLERGIC TO SHELLFISH OR IV DYE? NO . ANY NEW ALLERGIES? NO . PSYCHIATRIC: DO YOU HAVE THOUGHTS OF HURTING YOURSELF OR SOMEONE ELSE? NO . ARE YOU ABUSED, NEGLECTED, OR IN AN UNSAFE ENVIRONMENT? NO . ENDOCRINOLOGY: ARE YOU DIABETIC? YES WITH OUT MEDICATION . OTHER: DO YOU NEED ANY PRESCRIPTIONS? NO . IF YES, PLEASE LIST: ____ . ANY NEW PROBLEMS WITH YOUR MEDICATIONS? NO . WHEN DID YOU LAST EAT? ____ . WHEN DID YOU LAST DRINK? ____ . WHAT DID YOU LAST DRINK? ____ . NAME OF PERSON DRIVING YOU HOME? ____ . DO YOU HAVE ANY OTHER QUESTIONS OR CONCERNS NO . VITAL SIGNS WT 210 LBS, HT 61 IN, BMI 39.67 INDEX, BP 135/76 MM HG, HR 57 /MIN, RR 16 /MIN, TEMP 97.5 F, OXYGEN SAT % 93%, NA INITIALS SC 10:28. EXAMINATION GENERAL EXAMINATION: PSYCHALERT , ORIENTED X 3 , APPROPRIATE MOOD AND AFFECT . LUNGS:CLEAR TO AUSCULTATION BILATERALLY. HEART:HEART RATE REGULAR. MUSCULOSKELETAL:POINT TENDERNESS OVER LUMBOSACRAL AXIS AND AT BOTH SACRAL ILIAC JOINTS. CANES USED FOR BALANCE. HAS VERY DIFFICULT TIME RISING TO A STANDING POSITION. POSTURE IS STOOPED AND GAIT ANTALGIC. WEAKNESS IS NOTED WITH BILATERAL QUAD FLEXION RIGHT GREATER THAN LEFT. JOINTS:BILATERAL, KNEE , PAIN , SWELLING L>R. 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 PAIN IN RIGHT KNEE - M25.561 PAIN IN LEFT KNEE - M25.562 OTHER CHRONIC PAIN - G89.29 TREATMENT SPONDYLOSIS OF LUMBAR REGION WITHOUT MYELOPATHY OR RADICULOPATHY [facility] MRI SPINE, L.S. WITHOUT [id number] M 08/06/2017 10:57:21 AM > INCREASED RADICULAR SYMPTOMS - NO CONTRAST DUE TO IMPAIRED RENAL FUNCTION KERLINE DELGADO 08/06/2017 11:05:27 AM > NO AUTH REQUIRED, PT HAS MEDICARE PART A AND B NOTES: MRI WITHOUT CONTRAST. PROCEDURE CODES FA211 ESTABILISHED PATIENT [facility] CHARGE G8730 PAIN ASSESS POS TOOL F/U PLAN DOC G8427 DOC MEDS VERIFIED W/PT OR RE DISPOSITION & COMMUNICATION FOLLOW UP AFTER MRI COMPLETED (REASON: CHECK AUTH FOR LUMBAR MRI) ELECTRONICALLY SIGNED BY GELACIO COE ON 09/01/2017 AT 07:33 PM EDT DISCLAIMER : THIS IS A VISIT SUMMARY EXTRACTED FROM THE [employer] CHART. IT IS NOT A COPY OF THE [employer] PROGRESS NOTE. MTDD
== END ==
LOC: M PAIN 09:45
PROVIDERS: ATTEND Nurse Practitioner Family
DX: G89.29 Other chronic pain (principal); M47.816 Spondylosis without myelopathy or radiculopathy, lumbar region; M47.817 Spondylosis without myelopathy or radiculopathy, lumbosacral region; M25.561 Pain in right knee; M25.562 Pain in left knee; E11.9 Type 2 diabetes mellitus without complications; E03.9 Hypothyroidism, unspecified; Z88.0 Allergy status to penicillin; Z88.8 Allergy status to other drugs, medicaments and biological substances; Z79.82 Long term (current) use of aspirin; Z79.899 Other long term (current) drug therapy

== ENCOUNTER → 2017-08-23 | Outpatient (CLI) | payer MEDICARE, BC, OTHER ==
--- NOTE | 2017-09-24 01:47 | ECWPNPC ---
PATIENT NAME: JULIO GALLARDO : 1930 GENDER: FEMALE VISIT DATE: 08/23/2017 DISCHARGE DATE: 08/23/17 1134 VISIT LOCKED DATE TIME: PHYSICIAN: MISAEL BLAND RESOURCE: MISAEL BLAND REASON FOR APPOINTMENT 1. DISCUSS MRI HISTORY OF PRESENT ILLNESS HISTORY OF PRESENT ILLNESS: PAIN THE PATIENT DESCRIBES THE PAIN... FALL RISK SCREENING: SCREENING :NO FALLS IN THE PAST YEAR TODAY'S VISIT: NOTES: RATES PAIN TODAY 8/10 WHEN STANDING AND WALKING. HAS MINIMAL PAIN DESCRIBED AN ACHE WHEN SEATED. IS NOTING PAIN IN LEGS, BACK AND RIGHT HIP WHEN LAYING DOWN. HAS NOT BEEN ABLE TO SLEEP. WAS RECENTLY STARTED ON DULOXETINE FOR PAIN AND SLEEP.. CURRENT MEDICATIONS TAKING FUROSEMIDE 80 MG TABLET 2 TABLETS ORALLY BID TAKING ALLOPURINOL 100 MG TABLET 2 ORALLY ONCE A DAY TAKING OMEPRAZOLE 20 MG TABLET DELAYED RELEASE 1 ORALLY BID TAKING FERROUS SULFATE 325 (65 FE) MG TABLET 1 TABLET ORALLY ONCE A DAY TAKING LOSARTAN POTASSIUM 100 MG TABLET 1 TABLET ORALLY ONCE A DAY TAKING POTASSIUM CHLORIDE ER 10 MEQ CAPSULE EXTENDED RELEASE 2 CAPSULES WITH FOOD ORALLY DAILY TAKING GABAPENTIN 300 MG CAPSULE 1 CAPSULE IN A.M. 2 CAPS AT BEDTIME ORALLY TAKING ASPIR-81 81 MG TABLET DELAYED RELEASE 1 TABLET ORALLY ONCE A DAY TAKING STOOL SOFTENER 100 MG CAPSULE 1 CAPSULE NEEDED ORALLY ONCE A DAY TAKING FIBER THERAPY 500 MG TABLET 2 TABLETS NEEDED ORALLY DAILY TAKING WOMENS DAILY FORMULA TABLET ORALLY DAILY TAKING FISH OIL BURP-LESS 1000 MG CAPSULE 1 CAPSULE ORALLY TWICE A DAY TAKING CALCIUM CITRATE-VITAMIN D 500-500 MG-UNIT TABLET CHEWABLE ORALLY TWICE A DAY TAKING OSTEO BI-FLEX ADV TRIPLE ST TABLET 1 ORALLY TWICE DAILY TAKING TYLENOL EXTRA STRENGTH 500 MG TABLET 2 TABS ORALLY EVERY 6 HRS NEEDED TAKING VITAMIN D 2000 UNIT TABLET 1 TABLET ORALLY ONCE A DAY TAKING BIOTIN 5000 MCG TABLET 1 TABLET ORALLY BID TAKING ATORVASTATIN CALCIUM 20 MG TABLET 1 TAB ORALLY BEFORE BEDTIME TAKING LEVOTHYROXINE SODIUM 50 MCG TABLET 1 TABLET ORALLY ONCE A DAY TAKING SUPER B COMPLEX 1 TAB ORALLY DAILY TAKING DULOXETINE HCL 20 MG CAPSULE DELAYED RELEASE PARTICLES 1 CAPSULE ORALLY DAILY UNKNOWN VALIUM 5 MG TABLET 1 TABLET ORALLY ON ARRIVAL TO CLINIC FOR TREATMENT MDD=1 UNKNOWN MAGNESIUM OXIDE 400 MG TABLET ORALLY BID UNKNOWN LEVOXYL 50 MCG TABLET 1 TABLET ORALLY ONCE A DAY UNKNOWN DOCUSATE SODIUM 250 MG CAPSULE 1 CAPSULE NEEDED ORALLY ONCE A DAY UNKNOWN ALPHA LIPOIC ACID 300 MG CAPSULE ORALLY BID UNKNOWN CLOTRIMAZOLE-BETAMETHASONE 1-0.05 % CREAM 1 APPLICATION TO AFFECTED AREA EXTERNALLY TWICE A DAY UNKNOWN NASONEX 50 MCG/ACT SUSPENSION 2 SPRAYS IN EACH NOSTRIL NASALLY ONCE A DAY MEDICATION LIST REVIEWED AND RECONCILED WITH THE PATIENT PAST MEDICAL HISTORY HYPERLIPIDEMIA DIABETIC--DIET CONTROLLED INCREASED 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 CONSTITUTIONAL: ANY CHANGE IN YOUR MEDICAL CONDITION? NO . CHILLS NO . FEVER NO . INFECTION: DO YOU HAVE NEW INFECTIONS? NO . DO YOU HAVE HISTORY OF MRSA? NO . MUSCULOSKELETAL: ANY NEW PATTERNS OF PAIN OR NUMBNESS? NO . GASTROENTEROLOGY: ANY NEW CHANGE IN BOWEL CONTROL? NO . GENITOURINARY: ANY NEW CHANGE IN BLADDER CONTROL? NO . IS THERE A CHANCE YOU COULD BE ? NO . HEMATOLOGY/LYMPH: DO YOU TAKE ANY BLOOD THINNERS? (FOR EXAMPLE- COUMADIN, PLAVIX, AGGRENOX, PLATEL, PRADAXA, OR XARELTO) NO . WHEN WAS YOUR LAST DOSE? DATE: TIME: . NEUROLOGY: HAVE YOU FALLEN IN THE PAST 6 MONTHS? NO . ANY NEW EXTREMITY NUMBNESS OR WEAKNESS? NO . HEADACHE RECENT SHARP PAIN IN RIGHT HEAD - HAD RECENT CT SCAN - NO RESULTS YET . CARDIOLOGY: DO YOU HAVE A PACEMAKER OR DEFIBRILLATOR? NO . RESPIRATORY: HAVE YOU BEEN SICK IN THE PAST WEEK? NO . FEVER NO . FLU LIKE SYMPTOMS? NO . COUGH NO . INTEGUMENTARY: DO YOU HAVE ANY RASHES OR OPEN SORES? NO . ALLERGIC/IMMUNO: ARE YOU ALLERGIC TO SHELLFISH OR IV DYE? NO . ANY NEW ALLERGIES? NO . PSYCHIATRIC: DO YOU HAVE THOUGHTS OF HURTING YOURSELF OR SOMEONE ELSE? NO . ARE YOU ABUSED, NEGLECTED, OR IN AN UNSAFE ENVIRONMENT? NO . ENDOCRINOLOGY: ARE YOU DIABETIC? NO . OTHER: DO YOU NEED ANY PRESCRIPTIONS? NO . IF YES, PLEASE LIST: ____ . ANY NEW PROBLEMS WITH YOUR MEDICATIONS? NO . WHEN DID YOU LAST EAT? ____09/16/17 1730 . WHEN DID YOU LAST DRINK? ____09/17/17 0700 . WHAT DID YOU LAST DRINK? ____WATER . NAME OF PERSON DRIVING YOU HOME? ____HUSBAND GONZÁLEZ . DO YOU HAVE ANY OTHER QUESTIONS OR CONCERNS NO . VITAL SIGNS WT 212.4 LBS, HT 61 IN, BMI 40.13 INDEX, BP 131/60 MM HG, HR 64 /MIN, RR 16 /MIN, TEMP 97.1 F, OXYGEN SAT % 85%, NA INITIALS AW 1025, REVIEWED BY: NL. EXAMINATION GENERAL EXAMINATION: PSYCHALERT , ORIENTED X 3 , APPROPRIATE MOOD AND AFFECT . LUNGS:CLEAR TO AUSCULTATION BILATERALLY . HEART:HEART RATE REGULAR . MUSCULOSKELETAL:POINT TENDERNESS OVER LUMBOSACRAL AXIS AND BILATERALLY OVER LUMBAR FACETS. SLOW TO RISE TO STANDING POSITION. . EXTREMITIES:MIN LE EDEMA . DIAGNOSTIC TESTS REVIEWEDMRI OF LUMBAR SPINE COMPLETED 08/13/17 REVIEWED WITH PATIENT AND . 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 MATERIAL WAS PRINTED. CLINICAL NOTES: OPTION FOR EPIDURAL INJECTIONS WERE DISCUSSED WITH THE PATIENT. FDA CONCERNS AND WARNING WERE REVIEWED INCLUDING THE RISK OF BLEEDING, RISK OF INFECTION, RISK OF INCREASED PAIN OR NEURALGIA, AND RISK OF PARALYSIS. PATIENT'S QUESTIONS WERE ANSWERED AND HE/SHE WISHES TO MOVE FORWARD WITH EPIDURAL INJECTION. PROCEDURE CODES FA211 ESTABILISHED PATIENT [facility] FACILITY CHARGE G8730 PAIN ASSESS POS TOOL F/U PLAN DOC G8427 DOC MEDS VERIFIED W/PT OR RE DISPOSITION & COMMUNICATION FOLLOW UP AFTER INJECTION (REASON: CHECK AUTH INTRALAMINAL LUMBAR EPIDURAL AT L3/ MIN DYE) ELECTRONICALLY SIGNED BY GELACIO COE ON 09/23/2017 AT 08:52 PM EST DISCLAIMER : THIS IS A VISIT SUMMARY EXTRACTED FROM THE [employer] CHART. IT IS NOT A COPY OF THE [employer] PROGRESS NOTE. MICHELLE
== END ==
LOC: M PAIN 10:15
PROVIDERS: ATTEND Nurse Practitioner Family
DX: M48.062 Spinal stenosis, lumbar region with neurogenic claudication (principal); M51.16 Intervertebral disc disorders with radiculopathy, lumbar region; E78.5 Hyperlipidemia, unspecified; E03.9 Hypothyroidism, unspecified; Z79.82 Long term (current) use of aspirin; Z79.899 Other long term (current) drug therapy; Z88.0 Allergy status to penicillin; Z88.8 Allergy status to other drugs, medicaments and biological substances

== ENCOUNTER → 2017-09-17 | Outpatient (CLI) | payer MEDICARE, BC, OTHER ==
[~2017-09-17] MED LIST changes: +ISOVUE-M 300 61% 15ML VIAL (Q9967) As Ordered ONE; +LIDOCAINE 1% SDV INJ 30 ML VIAL As Ordered ONE; +methylPREDNISolone SUSP 40 MG/ML (DEPO-medrol) VIAL (J1030) As Ordered ONE
--- NOTE | 2017-09-17 13:01 | REP ---
Partial lumbar spine series: Three views . History: Injection procedure for pain. Three views 34 seconds of fluoroscopy time is reported. Findings: A sequence of three fluoroscopically obtained last image hold procedural spot radiographs of the lumbar spine document needle position and contrast injection associated with injection procedure. Signed by Jaydon Hillman MD 09/17/2017 12:52 P
--- NOTE | 2017-09-23 23:55 | ECWPNPC ---
PATIENT NAME: JULIO GALLARDO : 1930 GENDER: FEMALE VISIT DATE: 09/17/2017 DISCHARGE DATE: 09/17/17 1112 VISIT LOCKED DATE TIME: PHYSICIAN: ABIDA BISHOP RESOURCE: ABIDA BISHOP REASON FOR APPOINTMENT 1. INTRALAMINAL LE L3/ MIN DYE HISTORY OF PRESENT ILLNESS HISTORY OF PRESENT ILLNESS: PAIN THE PATIENT DESCRIBES THE PAIN... FALL RISK SCREENING: SCREENING :NO FALLS IN THE PAST YEAR CURRENT MEDICATIONS TAKING FUROSEMIDE 80 MG TABLET 2 TABLETS ORALLY BID, NOTES: 09/16/171199 TAKING ALLOPURINOL 100 MG TABLET 2 ORALLY ONCE A DAY, NOTES: 09/16/171199 TAKING OMEPRAZOLE 20 MG TABLET DELAYED RELEASE 1 ORALLY BID, NOTES: 09/16/171729 TAKING FERROUS SULFATE 325 (65 FE) MG TABLET 1 TABLET ORALLY ONCE A DAY, NOTES: 09/16/171729 TAKING LOSARTAN POTASSIUM 100 MG TABLET 1 TABLET ORALLY ONCE A DAY, NOTES: 09/16/17799 TAKING POTASSIUM CHLORIDE ER 10 MEQ CAPSULE EXTENDED RELEASE 2 CAPSULES WITH FOOD ORALLY DAILY, NOTES: 09/16/171999 TAKING GABAPENTIN 300 MG CAPSULE 1 CAPSULE IN A.M. 2 CAPS AT BEDTIME ORALLY , NOTES: 09/16/171999 TAKING ASPIR-81 81 MG TABLET DELAYED RELEASE 1 TABLET ORALLY ONCE A DAY, NOTES: 09/16/17799 TAKING STOOL SOFTENER 100 MG CAPSULE 1 CAPSULE NEEDED ORALLY ONCE A DAY, NOTES: 09/16/171999 TAKING FIBER THERAPY 500 MG TABLET 2 TABLETS NEEDED ORALLY DAILY, NOTES: 09/16/171999 TAKING WOMENS DAILY FORMULA TABLET ORALLY DAILY, NOTES: 09/16/171199 TAKING FISH OIL BURP-LESS 1000 MG CAPSULE 1 CAPSULE ORALLY TWICE A DAY, NOTES: 09/16/171999 TAKING CALCIUM CITRATE-VITAMIN D 500-500 MG-UNIT TABLET CHEWABLE ORALLY TWICE A DAY, NOTES: 09/16/171729 TAKING OSTEO BI-FLEX ADV TRIPLE ST TABLET 1 ORALLY TWICE DAILY, NOTES: 09/16/171729 TAKING TYLENOL EXTRA STRENGTH 500 MG TABLET 2 TABS ORALLY EVERY 6 HRS NEEDED, NOTES: 09/14/17 TAKING VITAMIN D 2000 UNIT TABLET 1 TABLET ORALLY ONCE A DAY, NOTES: 09/16/171729 TAKING BIOTIN 5000 MCG TABLET 1 TABLET ORALLY BID, NOTES: 11/6/17 0800 TAKING ATORVASTATIN CALCIUM 20 MG TABLET 1 TAB ORALLY BEFORE BEDTIME, NOTES: 09/16/17 2100 TAKING LEVOTHYROXINE SODIUM 50 MCG TABLET 1 TABLET ORALLY ONCE A DAY, NOTES: 09/16/17 0200 TAKING SUPER B COMPLEX 1 TAB ORALLY DAILY, NOTES: 09/16/17 0800 TAKING DULOXETINE HCL 20 MG CAPSULE DELAYED RELEASE PARTICLES 1 CAPSULE ORALLY DAILY, NOTES: 09/16/17 1230 NOT-TAKING VALIUM 5 MG TABLET 1 TABLET ORALLY ON ARRIVAL TO CLINIC FOR TREATMENT MDD=1 NOT-TAKING MAGNESIUM OXIDE 400 MG TABLET ORALLY BID NOT-TAKING LEVOXYL 50 MCG TABLET 1 TABLET ORALLY ONCE A DAY NOT-TAKING DOCUSATE SODIUM 250 MG CAPSULE 1 CAPSULE NEEDED ORALLY ONCE A DAY NOT-TAKING ALPHA LIPOIC ACID 300 MG CAPSULE ORALLY BID NOT-TAKING CLOTRIMAZOLE-BETAMETHASONE 1-0.05 % CREAM 1 APPLICATION TO AFFECTED AREA EXTERNALLY TWICE A DAY NOT-TAKING NASONEX 50 MCG/ACT SUSPENSION 2 SPRAYS IN EACH NOSTRIL NASALLY ONCE A DAY MEDICATION LIST REVIEWED AND RECONCILED WITH THE PATIENT PAST MEDICAL HISTORY HYPERLIPIDEMIA DIABETIC--DIET CONTROLLED INCREASED 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 CONSTITUTIONAL: ANY CHANGE IN YOUR MEDICAL CONDITION? NO . CHILLS NO . FEVER NO . INFECTION: DO YOU HAVE NEW INFECTIONS? NO . DO YOU HAVE HISTORY OF MRSA? NO . MUSCULOSKELETAL: ANY NEW PATTERNS OF PAIN OR NUMBNESS? NO . GASTROENTEROLOGY: ANY NEW CHANGE IN BOWEL CONTROL? NO . GENITOURINARY: ANY NEW CHANGE IN BLADDER CONTROL? NO . IS THERE A CHANCE YOU COULD BE ? NO . HEMATOLOGY/LYMPH: DO YOU TAKE ANY BLOOD THINNERS? (FOR EXAMPLE- COUMADIN, PLAVIX, AGGRENOX, PLATEL, PRADAXA, OR XARELTO) NO . WHEN WAS YOUR LAST DOSE? DATE: TIME: . NEUROLOGY: HAVE YOU FALLEN IN THE PAST 6 MONTHS? NO . ANY NEW EXTREMITY NUMBNESS OR WEAKNESS? NO . CARDIOLOGY: DO YOU HAVE A PACEMAKER OR DEFIBRILLATOR? NO . RESPIRATORY: HAVE YOU BEEN SICK IN THE PAST WEEK? NO . FEVER NO . FLU LIKE SYMPTOMS? NO . COUGH NO . INTEGUMENTARY: DO YOU HAVE ANY RASHES OR OPEN SORES? NO . ALLERGIC/IMMUNO: ARE YOU ALLERGIC TO SHELLFISH OR IV DYE? NO . ANY NEW ALLERGIES? NO . PSYCHIATRIC: DO YOU HAVE THOUGHTS OF HURTING YOURSELF OR SOMEONE ELSE? NO . ARE YOU ABUSED, NEGLECTED, OR IN AN UNSAFE ENVIRONMENT? NO . ENDOCRINOLOGY: ARE YOU DIABETIC? YES . OTHER: DO YOU NEED ANY PRESCRIPTIONS? NO . IF YES, PLEASE LIST: ____ . ANY NEW PROBLEMS WITH YOUR MEDICATIONS? NO . WHEN DID YOU LAST EAT? 09-16-17 5:30 PM . WHEN DID YOU LAST DRINK? 09-17-17 . WHAT DID YOU LAST DRINK? WATER . NAME OF PERSON DRIVING YOU HOME? COLLEEN . DO YOU HAVE ANY OTHER QUESTIONS OR CONCERNS NO . VITAL SIGNS WT 211.2 LBS, HT 61 IN, BMI 39.90 INDEX, BP 147/69 MM HG, HR 75 /MIN, RR 18 /MIN, TEMP 97.4 F, OXYGEN SAT % 96%, SAFE IN ENV? (Y/N) YES, NA INITIALS TL 0859, REVIEWED BY: CARY. ASSESSMENTS INTERVERTEBRAL DISC DISORDER WITH RADICULOPATHY OF LUMBOSACRAL REGION - M51.17 (PRIMARY) PROCEDURES PRE PROCEDURE DIAGNOSIS LUMBOSACRAL DISC DISORDER WITH RADICULOPATHY POST PROCEDURE DIAGNOSIS LUMBOSACRAL DISC DISORDER WITH RADICULOPATHY PROCEDURE LUMBAR EPIDURAL STEROID INJECTION UNDER FLUOROSCOPIC GUIDANCE SURGEON DR. ABIDA BISHOP FINAL FINISHER FORGING DIES NONE ANESTHESIA LOCAL PRE PROCEDURE NOTE THE PATIENT HAS A HISTORY OF CHRONIC LOW BACK PAIN. I EVALUATE THE PATIENT AND REVIEWED THE CHART. I WENT OVER THE RISKS, ALTERNATIVES, AND BENEFITS ASSOCIATED WITH THIS PROCEDURE. THE PATIENT WOULD LIKE TO PROCEED AND GIVE CONSENT TO PERFORMED THE PROCEDURE. THE PATIENT DENIES UNEXPLAINABLE WEIGHT LOSS, FEVER, CHILLS, OR NEW CHANGES IN URINARY OR BOWEL CONTROL. DESCRIPTION OF PROCEDURE THE PATIENT WAS BROUGHT TO THE PROCEDURE ROOM AND PLACED IN THE PRONE POSITION. THE LUMBOSACRAL AREA WAS CLEANED WITH BETADINE SOLUTION AND DRAPED ASEPTICALLY. THE PROCEDURE WAS DONE UNDER STERILE CONDITIONS. I CHECKED LATERALITY AND THE LEVEL WHERE THE PROCEDURE WAS GOING TO BE PERFORMED WITH THE PATIENT AND THE SUPPORTING STAFF AT THE MOMENT OF THE TIME OUT IN THE PROCEDURE ROOM. UNDER FLUOROSCOPIC GUIDANCE, THE TARGET POINT WAS SELECTED AT THE INTERLAMINAR LEVEL OF L5-S1. LIDOCAINE WAS USED TO NUMB THE SKIN AND THE SUBCUTANEOUS TISSUE BELOW IT. EPIDURAL TUOHY NEEDLE, 17-GAUGE, WAS ADVANCED UNDER FLUOROSCOPIC GUIDANCE AND FOLLOWING PATIENT FEEDBACK UNTIL THE EPIDURAL SPACE WAS REACHED, 7 CM DEEP INTO THE SKIN BY THE LOSS OF RESISTANCE TECHNIQUE. ISOVUE M DYE 30%, 0.25 ML, WAS INJECTED SHOWING ADEQUATE SPREAD OF THE DYE. THEN, A SOLUTION OF 3 ML OF NORMAL SALINE WITH DEPO-MEDROL 60 MG WAS INJECTED SLOWLY FOLLOWING PATIENT FEEDBACK. THERE WAS NO EVIDENCE OF BLOOD, PARESTHESIA OR CEREBROSPINAL FLUID DURING THE PROCEDURE. THE PATIENT WAS SENT TO THE RECOVERY ROOM. THE PATIENT WAS MOVING THE EXTREMITIES AND DOING WELL. THERE WAS NO COMPLICATION DURING THE PROCEDURE. FLUOROSCOPY TIME WAS 34 SECONDS. POST PROCEDURE NOTE THE PATIENT WILL BE SEEN IN A FOLLOW UP IN THE NEXT FEW WEEKS. INSTRUCTIONS WERE GIVEN, QUESTIONS WERE ANSWERED, AND THE PATIENT EXPRESSED UNDERSTANDING AND AGREES WITH THE PLAN. I, SHANIQUE CRUZ, DOCUMENTED THE ABOVE INFORMATION ACTING A SCRIBE FOR DR. BISHOP. I HAVE REVIEWED THE ABOVE DOCUMENT, WRITTEN BY SHANIQUE LÓPEZIBCeleste AND I VERIFY THAT IT IS ACCURATE DIAGNOSTIC IMAGING [facility] FLUORO GUIDE SPINE INJECTION (PAIN)[id number] PROCEDURE CODES 25865 LUMBAR/SACRAL W/ IMAGING 6045F RADXPS IN END [id number] PXD DISPOSITION & COMMUNICATION FOLLOW UP 2 WEEKS ELECTRONICALLY SIGNED BY ABIDA BISHOP MD ON 09/23/2017 AT 10:29 AM EST DISCLAIMER : THIS IS A VISIT SUMMARY EXTRACTED FROM THE [employer] CHART. IT IS NOT A COPY OF THE [employer] PROGRESS NOTE. MTDD
== END ==
LOC: M PAIN 08:45
PROVIDERS: ATTEND Anesthesiology
DX: G89.29 Other chronic pain (principal); M51.17 Intervertebral disc disorders with radiculopathy, lumbosacral region; E78.5 Hyperlipidemia, unspecified; E11.9 Type 2 diabetes mellitus without complications; E03.9 Hypothyroidism, unspecified; Z88.0 Allergy status to penicillin; Z88.8 Allergy status to other drugs, medicaments and biological substances; Z79.82 Long term (current) use of aspirin; Z79.899 Other long term (current) drug therapy
CPT/HCPCS: 62323; J1030; Q9967

== ENCOUNTER → 2017-09-25 | Outpatient (CLI) | payer MEDICARE, BC, OTHER ==
[~2017-09-25] MED LIST changes: -ISOVUE-M 300 61% 15ML VIAL (Q9967) As Ordered ONE; -LIDOCAINE 1% SDV INJ 30 ML VIAL As Ordered ONE; -methylPREDNISolone SUSP 40 MG/ML (DEPO-medrol) VIAL (J1030) As Ordered ONE
--- NOTE | 2017-10-10 01:27 | ECWPNPC ---
PATIENT NAME: JULIO GALLARDO : 1930 GENDER: FEMALE VISIT DATE: 09/25/2017 DISCHARGE DATE: 09/25/17 1044 VISIT LOCKED DATE TIME: PHYSICIAN: MISAEL BLAND RESOURCE: MISAEL BLAND REASON FOR APPOINTMENT 1. POST LE HISTORY OF PRESENT ILLNESS HISTORY OF PRESENT ILLNESS: PAIN THE PATIENT DESCRIBES THE PAIN... FALL RISK SCREENING: SCREENING :NO FALLS IN THE PAST YEAR TODAY'S VISIT: NOTES: S/P LESB COMPLETED ON 09/17/17. PAIN LEVEL PRIOR WAS 5-6/10 WITH PAIN LEVEL POST 0-1/10. SHARP PAIN HAS GONE FOR NOW. IS STILL HAVING SOME KNEE PAIN. CURRENT MEDICATIONS TAKING FUROSEMIDE 80 MG TABLET 2 TABLETS ORALLY BID, NOTES: 09/16/171199 TAKING ALLOPURINOL 100 MG TABLET 2 ORALLY ONCE A DAY, NOTES: 09/16/171199 TAKING OMEPRAZOLE 20 MG TABLET DELAYED RELEASE 1 ORALLY BID, NOTES: 09/16/171729 TAKING FERROUS SULFATE 325 (65 FE) MG TABLET 1 TABLET ORALLY ONCE A DAY, NOTES: 09/16/171729 TAKING LOSARTAN POTASSIUM 50 MG TABLET 1 TABLET ORALLY ONCE A DAY, NOTES: 09/16/17 08 TAKING POTASSIUM CHLORIDE ER 10 MEQ CAPSULE EXTENDED RELEASE 2 CAPSULES WITH FOOD ORALLY DAILY, NOTES: 09/16/171999 TAKING GABAPENTIN 300 MG CAPSULE 1 CAPSULE IN A.M. 2 CAPS AT BEDTIME ORALLY , NOTES: 09/16/171999 TAKING ASPIR-81 81 MG TABLET DELAYED RELEASE 1 TABLET ORALLY ONCE A DAY, NOTES: 09/16/17799 TAKING STOOL SOFTENER 100 MG CAPSULE 1 CAPSULE NEEDED ORALLY ONCE A DAY, NOTES: 09/16/171999 TAKING FIBER THERAPY 500 MG TABLET 2 TABLETS NEEDED ORALLY DAILY, NOTES: 09/16/171999 TAKING WOMENS DAILY FORMULA TABLET ORALLY DAILY, NOTES: 09/16/171199 TAKING FISH OIL BURP-LESS 1000 MG CAPSULE 1 CAPSULE ORALLY TWICE A DAY, NOTES: 09/16/171999 TAKING CALCIUM CITRATE-VITAMIN D 500-500 MG-UNIT TABLET CHEWABLE ORALLY TWICE A DAY, NOTES: 09/16/171729 TAKING OSTEO BI-FLEX ADV TRIPLE ST TABLET 1 ORALLY TWICE DAILY, NOTES: 09/16/171729 TAKING TYLENOL EXTRA STRENGTH 500 MG TABLET 2 TABS ORALLY EVERY 6 HRS NEEDED, NOTES: 09/14/17 TAKING VITAMIN D 2000 UNIT TABLET 1 TABLET ORALLY ONCE A DAY, NOTES: 09/16/17 1730 TAKING BIOTIN 5000 MCG TABLET 1 TABLET ORALLY BID, NOTES: 09/16/17 0800 TAKING ATORVASTATIN CALCIUM 20 MG TABLET 1 TAB ORALLY BEFORE BEDTIME, NOTES: 09/16/17 2100 TAKING LEVOTHYROXINE SODIUM 50 MCG TABLET 1 TABLET ORALLY ONCE A DAY, NOTES: 09/16/17 0200 TAKING SUPER B COMPLEX 1 TAB ORALLY DAILY, NOTES: 09/16/17 0800 TAKING DULOXETINE HCL 20 MG CAPSULE DELAYED RELEASE PARTICLES 1 CAPSULE ORALLY DAILY, NOTES: 09/16/17 1230 NOT-TAKING VALIUM 5 MG TABLET 1 TABLET ORALLY ON ARRIVAL TO CLINIC FOR TREATMENT MDD=1 NOT-TAKING MAGNESIUM OXIDE 400 MG TABLET ORALLY BID NOT-TAKING LEVOXYL 50 MCG TABLET 1 TABLET ORALLY ONCE A DAY NOT-TAKING DOCUSATE SODIUM 250 MG CAPSULE 1 CAPSULE NEEDED ORALLY ONCE A DAY NOT-TAKING ALPHA LIPOIC ACID 300 MG CAPSULE ORALLY BID NOT-TAKING CLOTRIMAZOLE-BETAMETHASONE 1-0.05 % CREAM 1 APPLICATION TO AFFECTED AREA EXTERNALLY TWICE A DAY NOT-TAKING NASONEX 50 MCG/ACT SUSPENSION 2 SPRAYS IN EACH NOSTRIL NASALLY ONCE A DAY MEDICATION LIST REVIEWED AND RECONCILED WITH THE PATIENT PAST MEDICAL HISTORY HYPERLIPIDEMIA DIABETIC--DIET CONTROLLED INCREASED 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 CONSTITUTIONAL: ANY CHANGE IN YOUR MEDICAL CONDITION? NO . CHILLS NO . FEVER NO . INFECTION: DO YOU HAVE NEW INFECTIONS? NO . DO YOU HAVE HISTORY OF MRSA? NO . MUSCULOSKELETAL: ANY NEW PATTERNS OF PAIN OR NUMBNESS? YES PT HAD ANTONELLAI 09/17/17, REPORTS GOOD PAIN RELIEF, WITH PRESENT PAIN LEVEL 0-1. . GASTROENTEROLOGY: ANY NEW CHANGE IN BOWEL CONTROL? NO . GENITOURINARY: ANY NEW CHANGE IN BLADDER CONTROL? NO . IS THERE A CHANCE YOU COULD BE ? NO . HEMATOLOGY/LYMPH: DO YOU TAKE ANY BLOOD THINNERS? (FOR EXAMPLE- COUMADIN, PLAVIX, AGGRENOX, PLATEL, PRADAXA, OR XARELTO) NO . WHEN WAS YOUR LAST DOSE? DATE: TIME: . NEUROLOGY: HAVE YOU FALLEN IN THE PAST 6 MONTHS? NO . ANY NEW EXTREMITY NUMBNESS OR WEAKNESS? NO . CARDIOLOGY: DO YOU HAVE A PACEMAKER OR DEFIBRILLATOR? NO . RESPIRATORY: HAVE YOU BEEN SICK IN THE PAST WEEK? YES . FEVER NO . FLU LIKE SYMPTOMS? NO . COUGH NO . INTEGUMENTARY: DO YOU HAVE ANY RASHES OR OPEN SORES? NO . ALLERGIC/IMMUNO: ARE YOU ALLERGIC TO SHELLFISH OR IV DYE? NO . ANY NEW ALLERGIES? NO . PSYCHIATRIC: DO YOU HAVE THOUGHTS OF HURTING YOURSELF OR SOMEONE ELSE? NO . ARE YOU ABUSED, NEGLECTED, OR IN AN UNSAFE ENVIRONMENT? NO . ENDOCRINOLOGY: ARE YOU DIABETIC? YES . OTHER: DO YOU NEED ANY PRESCRIPTIONS? NO . IF YES, PLEASE LIST: ____ . ANY NEW PROBLEMS WITH YOUR MEDICATIONS? NO . WHEN DID YOU LAST EAT? ____ . WHEN DID YOU LAST DRINK? ____ . WHAT DID YOU LAST DRINK? ____ . NAME OF PERSON DRIVING YOU HOME? ____ . DO YOU HAVE ANY OTHER QUESTIONS OR CONCERNS NO . VITAL SIGNS WT 209.2 LBS, HT 61 IN, BMI 39.52 INDEX, BP 128/60 MM HG, HR 65 /MIN, RR 18 /MIN, TEMP 97.4 F, OXYGEN SAT % 96%, SAFE IN ENV? (Y/N) YES, NA INITIALS TL 0953, REVIEWED BY: CARY. EXAMINATION GENERAL EXAMINATION: PSYCHALERT , ORIENTED X 3 , APPROPRIATE MOOD AND AFFECT . LUNGS:CLEAR TO AUSCULTATION BILATERALLY. HEART:II/ SYSTOLIC MURMUR, HEART RATE IR-REGULAR. MUSCULOSKELETAL:MILD TENDERNESS OVER THE LUMBOSACRAL AXIS . 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 PROCEDURE CODES FA211 ESTABILISHED PATIENT [facility] FACILITY CHARGE DISPOSITION & COMMUNICATION FOLLOW UP 3 MONTHS (REASON: BACK PAIN) ELECTRONICALLY SIGNED BY GELACIO COE ON 10/08/2017 AT 06:49 PM EST DISCLAIMER : THIS IS A VISIT SUMMARY EXTRACTED FROM THE [employer] CHART. IT IS NOT A COPY OF THE [employer] PROGRESS NOTE. MTDD
== END ==
LOC: M PAIN 09:45
PROVIDERS: ATTEND Nurse Practitioner Family
DX: G89.29 Other chronic pain (principal); M51.17 Intervertebral disc disorders with radiculopathy, lumbosacral region; M48.062 Spinal stenosis, lumbar region with neurogenic claudication; M51.16 Intervertebral disc disorders with radiculopathy, lumbar region; E11.9 Type 2 diabetes mellitus without complications; E03.9 Hypothyroidism, unspecified; N18.9 Chronic kidney disease, unspecified; Z88.0 Allergy status to penicillin; Z88.8 Allergy status to other drugs, medicaments and biological substances; Z79.82 Long term (current) use of aspirin; Z79.899 Other long term (current) drug therapy

== ENCOUNTER → 2018-01-01 | Outpatient (CLI) | payer MEDICARE, BC, OTHER | LOC: M PAIN 11:00 | DX: M51.17 Intervertebral disc disorders with radiculopathy, lumbosacral region (principal); M48.062 Spinal stenosis, lumbar region with neurogenic claudication; M51.16 Intervertebral disc disorders with radiculopathy, lumbar region; E78.5 Hyperlipidemia, unspecified; E11.9 Type 2 diabetes mellitus without complications; E03.9 Hypothyroidism, unspecified; Z79.82 Long term (current) use of aspirin; Z79.899 Other long term (current) drug therapy; Z88.8 Allergy status to other drugs, medicaments and biological substances | CPT/HCPCS: G0463 ==

== ENCOUNTER 2018-02-11 18:00 | Emergency (ER) | payer MEDICARE, BC, OTHER | END 2018-02-11 23:06 | disposition home or self-care (01) | LOC: M ED 18:00 | DX: R51 Headache (principal); M50.30 Other cervical disc degeneration, unspecified cervical region; I10 Essential (primary) hypertension; E78.00 Pure hypercholesterolemia, unspecified; K21.9 Gastro-esophageal reflux disease without esophagitis; K44.9 Diaphragmatic hernia without obstruction or gangrene; E03.9 Hypothyroidism, unspecified; M19.90 Unspecified osteoarthritis, unspecified site; N28.9 Disorder of kidney and ureter, unspecified; Z79.899 Other long term (current) drug therapy; Z79.82 Long term (current) use of aspirin; Z88.0 Allergy status to penicillin; Z88.6 Allergy status to analgesic agent; Z87.891 Personal history of nicotine dependence | CPT/HCPCS: 70450 ==

== ENCOUNTER → 2018-03-25 | Outpatient (CLI) | payer MEDICARE, BC, OTHER | LOC: M PAIN 11:15 | DX: M46.92 Unspecified inflammatory spondylopathy, cervical region (principal); M79.1 Myalgia; E78.5 Hyperlipidemia, unspecified; E11.9 Type 2 diabetes mellitus without complications; K44.9 Diaphragmatic hernia without obstruction or gangrene; N18.9 Chronic kidney disease, unspecified; E03.9 Hypothyroidism, unspecified; Z79.82 Long term (current) use of aspirin; Z79.899 Other long term (current) drug therapy; Z88.0 Allergy status to penicillin; Z88.8 Allergy status to other drugs, medicaments and biological substances | CPT/HCPCS: G0463 ==

== ENCOUNTER → 2018-04-09 | Outpatient (CLI) | payer MEDICARE, BC, OTHER ==
[~2018-04-09] MED LIST changes: -ACET500C PO; -ALLE180T33 PO; -ALLOPOW4 PO; -ALPH300C PO; -ALTA10CA OR; -AMIT25TA2 OR; -ATOR1TAB21 PO; -BABY81CH OR; -BACLOFEN PO; -BIOT1CAP2 PO; +BUPIVACAINE HCL 0.25% 30 ML VIAL As Ordered; -CALC250T PO; -CALC600T7 PO; -COLA100C2 OR; -FERR325T OR; -FIBEPOW PO; -FIBER THERAPY PO; -FISH500C PO; -FLUV40CA PO; -FURO80TA2 OR; -GABA-282 PO; -GABA600T3 OR; -GLUC500T3 OR; -GLUCTAB6 PO; -GOUT MED PO; +ISOVUE-M 300 61% 15ML VIAL (Q9967) As Ordered; -KLOR20PO PO; -LASI80TA OR; -LEVO25TA34 PO; +LIDOCAINE 1% SDV INJ 30 ML VIAL As Ordered; -LOSA100T36 PO; -LOTRCRE TOP; -LOVA20TA2 OR; -MAGN250T OR; -MOME50SP; -MULTIVIT PO; -MYRB25TA PO; -NEUR100C OR; -OMEGA FISH OIL PO; -OMEP20TA7 PO; -OSTEO BIOFLEX PO; -OYST500T OR; -PRED5TAB PO; -PROCRIT3000 MG/ML IJ; -STOO100C PO; +TRIAMCINOLONE ACETONIDE SUSP 40 MG/ML VIAL (J3301) As Ordered; -TRIC145T19 PO; -VITA100T OR; -VITA200016 PO; -VOLT1GEL15 TD; -[UNRECOGNIZED DRUG - CODE] OR; -[UNRECOGNIZED DRUG - OTHER]; -[UNRECOGNIZED DRUG - OTHER] PO; -[UNRECOGNIZED DRUG - REMARK] PO; -vicodin OR
== END ==
LOC: M PAIN 08:30
DX: G89.29 Other chronic pain (principal); M47.812 Spondylosis without myelopathy or radiculopathy, cervical region; E78.5 Hyperlipidemia, unspecified; E11.9 Type 2 diabetes mellitus without complications; K44.9 Diaphragmatic hernia without obstruction or gangrene; N18.9 Chronic kidney disease, unspecified; E03.9 Hypothyroidism, unspecified; Z79.82 Long term (current) use of aspirin; Z79.899 Other long term (current) drug therapy; Z88.0 Allergy status to penicillin; Z88.8 Allergy status to other drugs, medicaments and biological substances
CPT/HCPCS: J3301

== ENCOUNTER → 2018-05-06 | Outpatient (CLI) | payer MEDICARE, BC, OTHER | LOC: M PAIN 09:00 | DX: M47.812 Spondylosis without myelopathy or radiculopathy, cervical region (principal); M46.92 Unspecified inflammatory spondylopathy, cervical region; M79.1 Myalgia; M47.816 Spondylosis without myelopathy or radiculopathy, lumbar region; E78.5 Hyperlipidemia, unspecified; E11.9 Type 2 diabetes mellitus without complications; K44.9 Diaphragmatic hernia without obstruction or gangrene; N18.9 Chronic kidney disease, unspecified; E03.9 Hypothyroidism, unspecified; Z79.52 Long term (current) use of systemic steroids; Z79.899 Other long term (current) drug therapy; Z88.0 Allergy status to penicillin; Z88.8 Allergy status to other drugs, medicaments and biological substances | CPT/HCPCS: G0463 ==

== ENCOUNTER → 2018-05-28 | Outpatient (CLI) | payer MEDICARE, BC, OTHER | LOC: M PAIN 08:30 | DX: G89.29 Other chronic pain (principal); M47.816 Spondylosis without myelopathy or radiculopathy, lumbar region; M47.817 Spondylosis without myelopathy or radiculopathy, lumbosacral region; E78.5 Hyperlipidemia, unspecified; E11.9 Type 2 diabetes mellitus without complications; E78.00 Pure hypercholesterolemia, unspecified; E03.9 Hypothyroidism, unspecified; K44.9 Diaphragmatic hernia without obstruction or gangrene; Z79.82 Long term (current) use of aspirin; Z79.899 Other long term (current) drug therapy; Z88.0 Allergy status to penicillin; Z88.8 Allergy status to other drugs, medicaments and biological substances | CPT/HCPCS: J3301 ==

== ENCOUNTER → 2018-06-24 | Outpatient (CLI) | payer MEDICARE, BC, OTHER | LOC: M PAIN 10:00 | DX: M47.816 Spondylosis without myelopathy or radiculopathy, lumbar region (principal); M47.817 Spondylosis without myelopathy or radiculopathy, lumbosacral region; E78.5 Hyperlipidemia, unspecified; E11.9 Type 2 diabetes mellitus without complications; K44.9 Diaphragmatic hernia without obstruction or gangrene; E03.9 Hypothyroidism, unspecified; N28.9 Disorder of kidney and ureter, unspecified; Z79.82 Long term (current) use of aspirin; Z79.899 Other long term (current) drug therapy; Z88.0 Allergy status to penicillin; Z88.8 Allergy status to other drugs, medicaments and biological substances | CPT/HCPCS: G0463 ==

== ENCOUNTER → 2018-09-19 | Outpatient (CLI) | payer MEDICARE, BC, OTHER | LOC: M PAIN 09:30 | DX: M47.816 Spondylosis without myelopathy or radiculopathy, lumbar region (principal); M47.817 Spondylosis without myelopathy or radiculopathy, lumbosacral region; E78.5 Hyperlipidemia, unspecified; E11.9 Type 2 diabetes mellitus without complications; K44.9 Diaphragmatic hernia without obstruction or gangrene; E03.9 Hypothyroidism, unspecified; N28.9 Disorder of kidney and ureter, unspecified; Z90.49 Acquired absence of other specified parts of digestive tract; Z85.828 Personal history of other malignant neoplasm of skin; Z79.82 Long term (current) use of aspirin; Z79.899 Other long term (current) drug therapy; Z88.0 Allergy status to penicillin; Z88.4 Allergy status to anesthetic agent | CPT/HCPCS: G0463 ==

== ENCOUNTER → 2018-10-13 | Outpatient (REF) | payer MEDICARE, OTHER ==
[2018-10-15 08:06] LABS: LDL DIRECT 103 mg/dL (0-99)
== END ==
LOC: M LAB REF 16:48
DX: E78.2 Mixed hyperlipidemia (principal)
CPT/HCPCS: 83721

== ENCOUNTER 2018-10-31 23:16 | Emergency (ER) | payer MEDICARE, BC, OTHER | END 2018-11-01 01:09 | disposition home or self-care (01) | LOC: M ED 23:16 | DX: S00.83XA Contusion of other part of head, initial encounter (principal); W19.XXXA Unspecified fall, initial encounter; Y92.099 Unspecified place in other non-institutional residence as the place of occurrence of the external cause; Y93.9 Activity, unspecified; Y99.9 Unspecified external cause status; E11.9 Type 2 diabetes mellitus without complications; M48.02 Spinal stenosis, cervical region; M25.78 Osteophyte, vertebrae; M43.12 Spondylolisthesis, cervical region; Z79.82 Long term (current) use of aspirin; Z79.899 Other long term (current) drug therapy; Z88.0 Allergy status to penicillin; Z88.8 Allergy status to other drugs, medicaments and biological substances | CPT/HCPCS: 70450 ==

== ENCOUNTER → 2019-01-09 | Outpatient (REF) | payer MEDICARE, OTHER ==
[~2019-01-09] MED LIST changes: +ACET500C PO; +ALLE180T33 PO; +ALLOPOW4 PO; +ALPH300C PO; +ALTA10CA OR; +AMIT25TA2 OR; +ATOR1TAB21 PO; +BABY81CH OR; +BACLOFEN PO; +BIOT1CAP2 PO; -BUPIVACAINE HCL 0.25% 30 ML VIAL As Ordered; +CALC250T PO; +CALC600T7 PO; +COLA100C2 OR; +DULO1CAP PO; +FERR325T OR; +FIBEPOW PO; +FIBER THERAPY PO; +FISH500C PO; +FLUV40CA PO; +FURO80TA2 OR; +GABA-843 PO; +GABA600T3 OR; +GLUC500T3 OR; +GLUCTAB6 PO; +GOUT MED PO; -ISOVUE-M 300 61% 15ML VIAL (Q9967) As Ordered; +KLOR20PO PO; +LASI80TA PO; +LEVO25TA34 PO; -LIDOCAINE 1% SDV INJ 30 ML VIAL As Ordered; +LOSA100T36 PO; +LOTRCRE TOP; +LOVA20TA2 OR; +MAGN250T OR; +MOME50SP; +MULTIVIT PO; +MYRB25TA PO; +NEUR100C OR; +OMEGA FISH OIL PO; +OMEP20TA7 PO; +OSTEO BIOFLEX PO; +OYST500T OR; +PRED5TAB PO; +PROCRIT3000 MG/ML IJ; +STOO100C PO; -TRIAMCINOLONE ACETONIDE SUSP 40 MG/ML VIAL (J3301) As Ordered; +TRIC145T19 PO; +VITA100T OR; +VITA200016 PO; +VOLT1GEL15 TD; +[UNRECOGNIZED DRUG - CODE] OR; +[UNRECOGNIZED DRUG - OTHER]; +[UNRECOGNIZED DRUG - OTHER] PO; +[UNRECOGNIZED DRUG - REMARK] PO; +vicodin OR
[2019-01-11 09:02] LABS: LDL DIRECT 83 mg/dL (0-99)
== END ==
LOC: M LAB REF 17:22
PROVIDERS: ATTEND Internal Medicine
DX: E78.5 Hyperlipidemia, unspecified (principal)

== ENCOUNTER → 2019-01-16 | Outpatient (CLI) | payer MEDICARE, BC, OTHER ==
--- NOTE | 2019-01-17 23:56 | ECWPNPC ---
PATIENT NAME: JULIO GALLARDO : 1930 GENDER: FEMALE VISIT DATE: 01/16/2019 DISCHARGE DATE: 01/16/19 1113 VISIT LOCKED DATE TIME: PHYSICIAN: HARRY MCKEE RESOURCE: HARRY MCKEE REASON FOR APPOINTMENT 1. BACK PAIN HISTORY OF PRESENT ILLNESS HISTORY OF PRESENT ILLNESS: HERE FOR F/U OF CHRONIC LOW BACK PAIN.RATING PAIN VAS 8/10.PAIN IS AGGREVATED BY INCREASE IN ROJM.HAS RESPONDED WELL TO BILAT. LFBT IN PAST. PAIN THE PATIENT DESCRIBES THE PAIN... FALL RISK SCREENING: SCREENING : NO FALLS IN THE PAST YEAR. CURRENT MEDICATIONS TAKING FUROSEMIDE 80 MG TABLET 2 TABLETS ORALLY BID TAKING ALLOPURINOL 300 MG TABLET 1 TABLET ORALLY ONCE A DAY TAKING OMEPRAZOLE 20 MG TABLET DELAYED RELEASE 1 ORALLY BID TAKING FERROUS SULFATE 325 (65 FE) MG TABLET 1 TABLET ORALLY ONCE A DAY TAKING LOSARTAN POTASSIUM 50 MG TABLET 1 TABLET ORALLY DAILY TAKING POTASSIUM CHLORIDE ER 10 MEQ CAPSULE EXTENDED RELEASE 2 CAPSULES WITH FOOD ORALLY TWICE DAILY TAKING GABAPENTIN 300 MG CAPSULE 2 CAPS AT BEDTIME ORALLY TAKING ASPIR-81 81 MG TABLET DELAYED RELEASE 1 TABLET ORALLY ONCE A DAY TAKING STOOL SOFTENER 100 MG CAPSULE 1 CAPSULE NEEDED ORALLY ONCE A DAY TAKING FIBER THERAPY 500 MG TABLET 2 TABLETS NEEDED ORALLY DAILY TAKING WOMENS DAILY FORMULA TABLET ORALLY DAILY TAKING FISH OIL BURP-LESS 1000 MG CAPSULE 1 CAPSULE ORALLY TWICE A DAY TAKING CALCIUM CITRATE-VITAMIN D 500-500 MG-UNIT TABLET CHEWABLE ORALLY TWICE A DAY TAKING OSTEO BI-FLEX ADV TRIPLE ST TABLET 1 ORALLY TWICE DAILY TAKING TYLENOL EXTRA STRENGTH 500 MG TABLET 2 TABS ORALLY EVERY 6 HRS NEEDED TAKING VITAMIN D 2000 UNIT TABLET 1 TABLET ORALLY ONCE A DAY TAKING BIOTIN 5000 MCG TABLET 1 TABLET ORALLY BID TAKING ATORVASTATIN CALCIUM 10 MG TABLET 1 TAB ORALLY BEFORE BEDTIME TAKING LEVOTHYROXINE SODIUM 50 MCG TABLET 1 TABLET ORALLY ONCE A DAY TAKING SUPER B COMPLEX 1 TAB ORALLY DAILY TAKING DULOXETINE HCL 20 MG CAPSULE DELAYED RELEASE PARTICLES 2 CAPSULE ORALLY DAILY TAKING CLOTRIMAZOLE-BETAMETHASONE 1-0.05 % CREAM 1 APPLICATION TO AFFECTED AREA EXTERNALLY TWICE A DAY TAKING NASONEX 50 MCG/ACT SUSPENSION 2 SPRAYS IN EACH NOSTRIL NASALLY ONCE A DAY NEEDED TAKING SLOW-MAG 71.5-119 MG TABLET DELAYED RELEASE 2 TABLETS ORALLY ONCE A DAY NOT-TAKING PREVAGEN 10 MG CAPSULE ORALLY , NOTES: HAS NOT STARTED YET NOT-TAKING ALPHA LIPOIC ACID 300 MG CAPSULE ORALLY BID MEDICATION LIST REVIEWED AND RECONCILED WITH THE PATIENT PAST MEDICAL HISTORY HYPERLIPIDEMIA DIABETIC--DIET CONTROLLED INCREASED TRIGLCERIDES HIATAL HERNIA 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 3 SON(S) , 3 DAUGHTER(S) . 1 SET OF TWINS - AT . SOCIAL HISTORY GENERAL: TOBACCO USE ARE YOU A:NONSMOKER LATEX QUESTIONNAIRE LATEX ALLERGY : HAVE YOU EVER DEVELOPED ANY TYPE OF REACTION AFTER HANDLING LATEX PRODUCTS SUCH RUBBER GLOVES, CONDOMS, DIAPHRAGMS, BALLOONS, SOCKS, OR UNDERWEAR?NO LATEX ALLERGY : HAVE YOU EVER DEVELOPED ANY TYPE OF REACTION DURING OR AFTER DENTAL APPOINTMENT, VAGINAL/RECTAL EXAMINATION, SURGICAL PROCEDURE, OR ANY OTHER EXPOSURE?NO LATEX RISK : HAVE YOU EVER HAD ANY DIFFICULTY BREATHING OR HIVES AFTER EATING OR HANDLING ANY FRUITS, OR VEGETABLES; SUCH KIWI, BANANAS, STONE FRUITS, OR CHESTNUTSNO LATEX RISK : DO YOU HAVE A PREVIOUS PERSONAL HISTORY OF MORE THAN NINE SURGERIES, SPINA BIFIDA, OR REPEATED CATHERTIZATIONS? NO LATEX RISK : ARE YOU FREQUENTLY EXPOSED TO LATEX PRODUCTS IN YOUR OCCUPATION?NO DATE ASKED : 01/16/2019 ALCOHOL SCREENING DID YOU HAVE A DRINK CONTAINING ALCOHOL IN THE PAST YEAR?NO POINTS0 INTERPRETATIONNEGATIVE RECREATIONAL DRUG USE DRUG USE?NO CAFFEINE CAFFEINE USE?YES HOW OFTEN AND HOW MUCH? DAILY LANGUAGE LANGUAGES SPOKEN:UGANDAN LEARNING BARRIERS / SPECIAL NEEDS ORIENTED TO PLAN OF CARE: PATIENT, PAIN MANAGEMENT PATIENT, ORIENTED TO PLAN OF CARE: PATIENT, PAIN MANAGEMENT PATIENT. DIET: REGULAR. EXERCISE: NO REGULAR EXERCISE. NEW PATIENT PAIN DIARY TODAY'S VISITNOTES FROM 0-10, WHAT LEVEL IS YOUR PAIN TODAY?6 PAIN CLINIC PFS, CLERGY, PUBLIC HEALTH REFERRALS PFS REFERRAL NEEDED?NO CLERGY REFERRAL NEEDED?NO PUBLIC HEALTH REFERRAL NEEDED?NO WAS THE PROVIDER NOTIFIED OF ANY PERTINENT INFO?YES HAS THE PATIENT BEEN EDUCATED REGARDING HIS/HER PLAN OF CARE?YES HAS THE PATIENT BEEN EDUCATED REGARDING PAIN, THE RISK FOR PAIN, THE IMPORTANCE OF EFFECTIVE PAIN MANAGEMENT, AND THE PAIN ASSESSMENT PROCESS?YES ADVANCE DIRECTIVE ADVANCE DIRECTIVE DISCUSSED WITH PATIENT:YES , EPIFANIO GALLARDO [phone] REVIEWED WITH PT 01/16/19 1027 BV. HOSPITALIZATION/MAJOR DIAGNOSTIC PROCEDURE NO HOSPITALIZATION HISTORY. REVIEW OF SYSTEMS REVIEWED BY: PROVIDER: HARRY LUCIO . CONSTITUTIONAL: ANY CHANGE IN YOUR MEDICAL CONDITION? NO . CHILLS NO . FEVER NO . INFECTION: DO YOU HAVE NEW INFECTIONS? NO . DO YOU HAVE HISTORY OF MRSA? NO . MUSCULOSKELETAL: ANY NEW PATTERNS OF PAIN OR NUMBNESS? YES, COMPLAINS OF INTERMITTENT NUMBNESS TO BILATERAL HANDS AND FEET. STATES SHE DOES HAVE HISTORY OF THIS . GASTROENTEROLOGY: ANY NEW CHANGE IN BOWEL CONTROL? YES, PT COMPLAINS OF EPISODES OF CONSTIPATION AND LOOSE STOOLS. STATES SHE IS CURRENTLY SEEING DR. DEL REAL REGARDING THIS AND HAS COLONOSCOPY SCHEDULED WITH HIM . GENITOURINARY: ANY NEW CHANGE IN BLADDER CONTROL? NO . IS THERE A CHANCE YOU COULD BE ? NO . HEMATOLOGY/LYMPH: DO YOU TAKE ANY BLOOD THINNERS? (FOR EXAMPLE- COUMADIN, PLAVIX, AGGRENOX, PLATEL, PRADAXA, OR XARELTO) NO . WHEN WAS YOUR LAST DOSE? DATE: TIME: . NEUROLOGY: HAVE YOU FALLEN IN THE PAST 12 MONTHS? YES, PT HAD A FALL LATE-OCTOBER. FELL ON HER PORCH, AND HIT HER HEAT. STATES SHE WAS TREATED AT THE EMERGENCY ROOM AND RELEASED. . ANY NEW EXTREMITY NUMBNESS OR WEAKNESS? NO . CARDIOLOGY: DO YOU HAVE A PACEMAKER OR DEFIBRILLATOR? NO . RESPIRATORY: HAVE YOU BEEN SICK IN THE PAST WEEK? NO . FEVER NO . FLU LIKE SYMPTOMS? NO . COUGH NO . INTEGUMENTARY: DO YOU HAVE ANY RASHES OR OPEN SORES? 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 ALLERGIC/IMMUNO: ARE YOU ALLERGIC TO IV DYE? NO . ANY NEW ALLERGIES? NO . PSYCHIATRIC: DO YOU HAVE THOUGHTS OF HURTING YOURSELF OR SOMEONE ELSE? NO . ARE YOU ABUSED, NEGLECTED, OR IN AN UNSAFE ENVIRONMENT? NO . ENDOCRINOLOGY: ARE YOU DIABETIC? YES, DIET CONTROLLED . OTHER: DO YOU NEED ANY PRESCRIPTIONS? NO . IF YES, PLEASE LIST: ____ . ANY NEW PROBLEMS WITH YOUR MEDICATIONS? NO . WHEN DID YOU LAST EAT? ____ . WHEN DID YOU LAST DRINK? ____ . WHAT DID YOU LAST DRINK? ____ . NAME OF PERSON DRIVING YOU HOME? ____ . DO YOU HAVE ANY OTHER QUESTIONS OR CONCERNS NO . VITAL SIGNS WT 196.4 LBS, HT 61 IN, BMI 37.11 INDEX, BP 122/67 MM HG, HR 92 /MIN, RR 18 /MIN, TEMP 96.6 F, OXYGEN SAT % 97%, NA INITIALS AW 1008, REVIEWED BY: BV. EXAMINATION GENERAL EXAMINATION: GENERAL APPEARANCE:AWAKE,ALERT ,PLEAASANT . PSYCHAFFECT NORMAL . LUNGS:LUNG WHEATLEY ARE CLEAR TO AUSCULTATION BILATERALLY. GOOD MOVEMENT OF AIR . HEART:S1, S2 IN A REGULAR RATE AND RHYTHM. NO SIGNIFICANT MURMURS, RUBS OR GALLOPS NOTED . MUSCULOSKELETAL:WEAK OVER RIGHT LEG . LUMBAR SACRAL SPINEPALPATION: + FOR PAIN OVER L/S SPINE. + FOR PAIN OVER L/S PARASPINALS SPECIFIC POINT TENDERNESS OVER BILAT. L4/5/L5/S1 LUMBAR FACETS WITH FACET LOADING . NEUROLOGIC EXAM:NORMAL SENSATION LIGHT TOUCH BILAT. LOWER EXTREMITIES . DIAGNOSTIC:MRI L/S SPINE-08/13/17. ASSESSMENTS SPONDYLOSIS OF LUMBAR REGION WITHOUT MYELOPATHY OR RADICULOPATHY - M47.816 (PRIMARY) TREATMENT SPONDYLOSIS OF LUMBAR REGION WITHOUT MYELOPATHY OR RADICULOPATHY NOTES: BILAT.LFBT L4/5-L5/S1. PROCEDURE CODES FA211 ESTABILISHED PATIENT [facility] CHARGE DISPOSITION & COMMUNICATION FOLLOW UP POST (REASON: BILAT.LFBT L4/5-L5/S1) ELECTRONICALLY SIGNED BY NAVEED DRAPER ON 01/16/2019 AT 12:40 PM EST DISCLAIMER : THIS IS A VISIT SUMMARY EXTRACTED FROM THE [facility] CHART. IT IS NOT A COPY OF THE [facility] PROGRESS NOTE. MICHELLE
== END ==
LOC: M PAIN 10:00
PROVIDERS: ATTEND Nurse Practitioner Family
DX: M47.816 Spondylosis without myelopathy or radiculopathy, lumbar region (principal); G89.29 Other chronic pain; E78.5 Hyperlipidemia, unspecified; E11.9 Type 2 diabetes mellitus without complications; K44.9 Diaphragmatic hernia without obstruction or gangrene; Z87.448 Personal history of other diseases of urinary system; E03.9 Hypothyroidism, unspecified; Z88.0 Allergy status to penicillin; Z88.4 Allergy status to anesthetic agent; Z79.82 Long term (current) use of aspirin; Z79.899 Other long term (current) drug therapy

== ENCOUNTER → 2019-02-03 | Outpatient (CLI) | payer MEDICARE, BC, OTHER ==
[~2019-02-03] MED LIST changes: +ALLO10TA PO; +ASPI81TA85 PO; +B COTAB3 PO; +BIOFTAB PO; +BUPIVACAINE HCL 0.25% 30 ML VIAL As Ordered ONE; +CALC-176 PO; +D200CAP3 PO; +DICL1GEL3 TOP; +DOCU250C7 PO; +FERR1TAB8 PO; +FIBE500T4 PO; +FIBE625T PO; +FISH1000 PO; +FURO80TA2 PO; +GLUC1TAB58 PO; +ISOVUE-M 300 61% 15ML VIAL (Q9967) As Ordered ONE; +K-TA10TA2 PO; +LIDOCAINE 1% SDV INJ 30 ML VIAL As Ordered ONE; +LOSA50TA88 PO; +MULT1TAB10 PO; +NU-M1TAB PO; +OMEP-221 PO; +OMEP20CA3 PO; +POTA10TA67 PO; +POTA1TAB23 PO; +SM STAB3 PO; +STOO1CAP9 PO; +SYNT75TA PO; +TRIAMCINOLONE ACETONIDE SUSP 40 MG/ML VIAL (J3301) As Ordered ONE; +TYLE650T35 PO; +ULTR5TAB PO; +VITA80003 PO; +VITMTA PO; +ZYLO300T6 PO
--- NOTE | 2019-02-03 11:44 | REP ---
Partial lumbar spine series: Two views . History: Injection procedure for pain. 41 seconds of fluoroscopy time is reported. Findings: A sequence of two fluoroscopically obtained last image hold procedural spot radiographs of the lumbar spine document needle position and contrast injection associated with injection procedure. Electronically Signed by Jaydon Hillman MD 02/03/2019 11:36 A
--- NOTE | 2019-02-09 00:15 | ECWPNPC ---
PATIENT NAME: JULIO GALLARDO : 1930 GENDER: FEMALE VISIT DATE: 02/03/2019 DISCHARGE DATE: 02/03/19 1115 VISIT LOCKED DATE TIME: PHYSICIAN: ABIDA BISHOP MD RESOURCE: ABIDA BISHOP MD REASON FOR APPOINTMENT 1. BILAT.LFBT L4/5-L5/S1 HISTORY OF PRESENT ILLNESS HISTORY OF PRESENT ILLNESS: PAIN THE PATIENT DESCRIBES THE PAIN... FALL RISK SCREENING: SCREENING :NO FALLS REPORTED IN THE LAST YEAR CURRENT MEDICATIONS TAKING FUROSEMIDE 80 MG TABLET 2 TABLETS ORALLY BID, NOTES: 02/02/19 TAKING ALLOPURINOL 300 MG TABLET 1 TABLET ORALLY ONCE A DAY, NOTES: 02/02/19 TAKING OMEPRAZOLE 20 MG TABLET DELAYED RELEASE 1 ORALLY BID, NOTES: 02/02/19 TAKING FERROUS SULFATE 325 (65 FE) MG TABLET 1 TABLET ORALLY ONCE A DAY, NOTES: 02/02/19 TAKING LOSARTAN POTASSIUM 50 MG TABLET 1 TABLET ORALLY DAILY, NOTES: 02/02/19 TAKING POTASSIUM CHLORIDE ER 10 MEQ CAPSULE EXTENDED RELEASE 2 CAPSULES WITH FOOD ORALLY TWICE DAILY, NOTES: 02/02/19 TAKING GABAPENTIN 300 MG CAPSULE 2 CAPS AT BEDTIME ORALLY , NOTES: 02/02/19 TAKING ASPIR-81 81 MG TABLET DELAYED RELEASE 1 TABLET ORALLY ONCE A DAY, NOTES: 02/03/19 AM TAKING STOOL SOFTENER 100 MG CAPSULE 1 CAPSULE NEEDED ORALLY ONCE A DAY, NOTES: 02/02/19 TAKING FIBER THERAPY 500 MG TABLET 2 TABLETS NEEDED ORALLY DAILY, NOTES: 02/02/19 TAKING WOMENS DAILY FORMULA TABLET ORALLY DAILY, NOTES: 02/02/19 TAKING FISH OIL BURP-LESS 1000 MG CAPSULE 1 CAPSULE ORALLY TWICE A DAY, NOTES: 02/02/19 TAKING CALCIUM CITRATE-VITAMIN D 500-500 MG-UNIT TABLET CHEWABLE ORALLY TWICE A DAY, NOTES: 02/02/19 TAKING OSTEO BI-FLEX ADV TRIPLE ST TABLET 1 ORALLY TWICE DAILY, NOTES: 02/02/19 TAKING TYLENOL EXTRA STRENGTH 500 MG TABLET 2 TABS ORALLY EVERY 6 HRS NEEDED, NOTES: 02/02/19 TAKING VITAMIN D 2000 UNIT TABLET 1 TABLET ORALLY ONCE A DAY, NOTES: 02/02/19 TAKING BIOTIN 5000 MCG TABLET 1 TABLET ORALLY BID, NOTES: 02/02/19 TAKING ATORVASTATIN CALCIUM 10 MG TABLET 1 TAB ORALLY BEFORE BEDTIME, NOTES: 02/02/19 TAKING LEVOTHYROXINE SODIUM 50 MCG TABLET 1 TABLET ORALLY ONCE A DAY, NOTES: 02/02/19 TAKING SUPER B COMPLEX 1 TAB ORALLY DAILY, NOTES: 02/02/19 TAKING DULOXETINE HCL 20 MG CAPSULE DELAYED RELEASE PARTICLES 2 CAPSULE ORALLY DAILY, NOTES: 02/02/19 TAKING CLOTRIMAZOLE-BETAMETHASONE 1-0.05 % CREAM 1 APPLICATION TO AFFECTED AREA EXTERNALLY TWICE A DAY, NOTES: 02/01/19 TAKING NASONEX 50 MCG/ACT SUSPENSION 2 SPRAYS IN EACH NOSTRIL NASALLY ONCE A DAY NEEDED, NOTES: 02/02/19 TAKING SLOW-MAG 71.5-119 MG TABLET DELAYED RELEASE 2 TABLETS ORALLY ONCE A DAY, NOTES: 02/02/19 NOT-TAKING PREVAGEN 10 MG CAPSULE ORALLY , NOTES: HAS NOT STARTED YET NOT-TAKING ALPHA LIPOIC ACID 300 MG CAPSULE ORALLY BID MEDICATION LIST REVIEWED AND RECONCILED WITH THE PATIENT PAST MEDICAL HISTORY HYPERLIPIDEMIA DIABETIC--DIET CONTROLLED INCREASED 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 3 SON(S) , 3 DAUGHTER(S) . 1 SET OF TWINS - AT . SOCIAL HISTORY GENERAL: TOBACCO USE ARE YOU A: NONSMOKER . LATEX QUESTIONNAIRE LATEX ALLERGY : HAVE YOU EVER DEVELOPED ANY TYPE OF REACTION AFTER HANDLING LATEX PRODUCTS SUCH RUBBER GLOVES, CONDOMS, DIAPHRAGMS, BALLOONS, SOCKS, OR UNDERWEAR?NO LATEX ALLERGY : HAVE YOU EVER DEVELOPED ANY TYPE OF REACTION DURING OR AFTER DENTAL APPOINTMENT, VAGINAL/RECTAL EXAMINATION, SURGICAL PROCEDURE, OR ANY OTHER EXPOSURE?NO LATEX RISK : HAVE YOU EVER HAD ANY DIFFICULTY BREATHING OR HIVES AFTER EATING OR HANDLING ANY FRUITS, OR VEGETABLES; SUCH KIWI, BANANAS, STONE FRUITS, OR CHESTNUTSNO LATEX RISK : DO YOU HAVE A PREVIOUS PERSONAL HISTORY OF MORE THAN NINE SURGERIES, SPINA BIFIDA, OR REPEATED CATHERTIZATIONS? NO LATEX RISK : ARE YOU FREQUENTLY EXPOSED TO LATEX PRODUCTS IN YOUR OCCUPATION?NO DATE ASKED : 01/16/2019 ALCOHOL SCREENING DID YOU HAVE A DRINK CONTAINING ALCOHOL IN THE PAST YEAR?NO POINTS0 INTERPRETATIONNEGATIVE RECREATIONAL DRUG USE DRUG USE?NO CAFFEINE CAFFEINE USE?YES HOW OFTEN AND HOW MUCH? DAILY LANGUAGE LANGUAGES SPOKEN:MALTESE LEARNING BARRIERS / SPECIAL NEEDS ORIENTED TO PLAN OF CARE: PATIENT, PAIN MANAGEMENT PATIENT, ORIENTED TO PLAN OF CARE: PATIENT, PAIN MANAGEMENT PATIENT. DIET: REGULAR. EXERCISE: NO REGULAR EXERCISE. NEW PATIENT PAIN DIARY TODAY'S VISITNOTES FROM 0-10, WHAT LEVEL IS YOUR PAIN TODAY?6 PAIN CLINIC PFS, CLERGY, PUBLIC HEALTH REFERRALS PFS REFERRAL NEEDED?NO CLERGY REFERRAL NEEDED?NO PUBLIC HEALTH REFERRAL NEEDED?NO WAS THE PROVIDER NOTIFIED OF ANY PERTINENT INFO?YES HAS THE PATIENT BEEN EDUCATED REGARDING HIS/HER PLAN OF CARE?YES HAS THE PATIENT BEEN EDUCATED REGARDING PAIN, THE RISK FOR PAIN, THE IMPORTANCE OF EFFECTIVE PAIN MANAGEMENT, AND THE PAIN ASSESSMENT PROCESS?YES ADVANCE DIRECTIVE ADVANCE DIRECTIVE DISCUSSED WITH PATIENT:YES , EPIFANIO GALLARDO [phone] REVIEWED WITH PT 01/16/19 1027 BV. HOSPITALIZATION/MAJOR DIAGNOSTIC PROCEDURE NO HOSPITALIZATION HISTORY. REVIEW OF SYSTEMS REVIEWED BY: PROVIDER: . CONSTITUTIONAL: ANY CHANGE IN YOUR MEDICAL CONDITION? NO . CHILLS NO . FEVER NO . INFECTION: DO YOU HAVE NEW INFECTIONS? NO . DO YOU HAVE HISTORY OF MRSA? NO . MUSCULOSKELETAL: ANY NEW PATTERNS OF PAIN OR NUMBNESS? NO . GASTROENTEROLOGY: ANY NEW CHANGE IN BOWEL CONTROL? NO . GENITOURINARY: ANY NEW CHANGE IN BLADDER CONTROL? NO . IS THERE A CHANCE YOU COULD BE ? NO . HEMATOLOGY/LYMPH: DO YOU TAKE ANY BLOOD THINNERS? (FOR EXAMPLE- COUMADIN, PLAVIX, AGGRENOX, PLATEL, PRADAXA, OR XARELTO) NO . WHEN WAS YOUR LAST DOSE? DATE: TIME: . NEUROLOGY: HAVE YOU FALLEN IN THE PAST 12 MONTHS? YES, PRIOR TO LAST VISIT . ANY NEW EXTREMITY NUMBNESS OR WEAKNESS? NO . CARDIOLOGY: DO YOU HAVE A PACEMAKER OR DEFIBRILLATOR? NO . RESPIRATORY: HAVE YOU BEEN SICK IN THE PAST WEEK? NO . FEVER NO . FLU LIKE SYMPTOMS? NO . COUGH NO . INTEGUMENTARY: DO YOU HAVE ANY RASHES OR OPEN SORES? NO . ALLERGIC/IMMUNO: ARE YOU ALLERGIC TO IV DYE? NO . ANY NEW ALLERGIES? NO . PSYCHIATRIC: DO YOU HAVE THOUGHTS OF HURTING YOURSELF OR SOMEONE ELSE? NO . ARE YOU ABUSED, NEGLECTED, OR IN AN UNSAFE ENVIRONMENT? NO . ENDOCRINOLOGY: ARE YOU DIABETIC? YES, FS 133 TODAY 0730 . OTHER: DO YOU NEED ANY PRESCRIPTIONS? NO . IF YES, PLEASE LIST: ____ . ANY NEW PROBLEMS WITH YOUR MEDICATIONS? NO . WHEN DID YOU LAST EAT? 02/02/19 1630 . WHEN DID YOU LAST DRINK? 02/03/19 0700 . WHAT DID YOU LAST DRINK? WATER . NAME OF PERSON DRIVING YOU HOME? EPIFANIO . DO YOU HAVE ANY OTHER QUESTIONS OR CONCERNS NO . VITAL SIGNS WT 193.6 LBS, HT 61 IN, BMI 36.58 INDEX, BP 146/68 MM HG, HR 79 /MIN, RR 18 /MIN, TEMP 97.2 F, OXYGEN SAT % 98%, NA INITIALS SC 09:09. 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 TREATMENT SPONDYLOSIS OF LUMBAR REGION WITHOUT MYELOPATHY OR RADICULOPATHY SMC FACET BLOCK (PAIN)[id number] PROCEDURES PN LUMBAR FACET BLOCK THERAPEUTIC PRE PROCEDURE DIAGNOSIS LUMBAR SPONDYLOSIS, LUMBOSACRAL SPONDYLOSIS POST PROCEDURE DIAGNOSIS LUMBAR SPONDYLOSIS, LUMBOSACRAL SPONDYLOSIS PROCEDURE BILATERAL L4-L5 AND BILATERAL L5-S1 LUMBAR FACET THERAPEUTIC BLOCK SURGEON DR. ABIDA BISHOP ELECTRONIC FUNDS TRANSFER COORDINATOR NONE ANESTHESIA LOCAL PRE PROCEDURE NOTE THE PATIENT HAS A HISTORY OF CHRONIC LOW BACK PAIN. I EVALUATE THE PATIENT AND REVIEWED THE CHART. I WENT OVER THE RISKS, ALTERNATIVES, AND BENEFITS ASSOCIATED WITH THIS PROCEDURE. THE PATIENT WOULD LIKE TO PROCEED AND GIVE CONSENT TO PERFORMED THE PROCEDURE. THE PATIENT DENIES UNEXPLAINABLE WEIGHT LOSS, FEVER, CHILLS, OR NEW CHANGES IN URINARY OR BOWEL CONTROL DESCRIPTION OF PROCEDURE THE PATIENT WAS BROUGHT TO THE PROCEDURE ROOM AND PLACED IN THE PRONE POSITION. THE LUMBOSACRAL AREA WAS CLEANED WITH CHLORAPREP SOLUTION AND DRAPED ASEPTICALLY. THE PROCEDURE WAS DONE UNDER STERILE CONDITIONS. I CHECKED LATERALITY AND THE LEVEL WHERE THE PROCEDURE WAS GOING TO BE PERFORMED WITH THE PATIENT AND THE SUPPORTING STAFF AT THE MOMENT OF THE TIME OUT IN THE PROCEDURE ROOM. UNDER FLUOROSCOPIC GUIDANCE, THE TARGET POINT WAS SELECTED AT THE RIGHT AND LEFT L4-L5 AND RIGHT AND LEFT L5-S1 FACET JOINT. TARGET POINT WAS SELECTED AFTER LATERAL ROTATION AND TILT OF THE MAGNIFIER OF THE C-ARM. LIDOCAINE 0.5% WAS USED TO NUMB THE SKIN AND THE SUBCUTANEOUS TISSUE BELOW IT. SPINAL NEEDLES, 22-GAUGE, WERE ADVANCED UNDER FLUOROSCOPIC GUIDANCE AND FOLLOWING PATIENT FEEDBACK UNTIL THE TARGETS WERE TOUCHED. THE POSITION OF THE NEEDLES WAS VERIFIED WITH AP AND LATERAL VIEWS. AFTER PROPER POSITION OF THE NEEDLES WAS ACHIEVED, ISOVUE-M DYE 30% 0.1 ML WAS INJECTED SHOWING ADEQUATE SPREAD OF THE DYE. THEN A SOLUTION OF 1.9 ML OF BUPIVACAINE 0.125% OF KENALOG 10 MG WAS INJECTED AT EACH SITE. THERE WAS NO EVIDENCE OF BLOOD, PARESTHESIA OR CEREBROSPINAL FLUID DURING THE PROCEDURE. THE PATIENT WAS SENT TO THE RECOVERY ROOM. THE PATIENT WAS MOVING THE EXTREMITIES AND DOING WELL. THERE WAS NO COMPLICATION DURING THE PROCEDURE. FLUOROSCOPY TIME WAS 41 SECONDS POST PROCEDURE NOTE THE PATIENT WILL BE SEEN IN A FOLLOW UP IN THE NEXT FEW WEEKS. INSTRUCTIONS WERE GIVEN, QUESTIONS WERE ANSWERED, AND THE PATIENT EXPRESSED UNDERSTANDING AND AGREES WITH THE PLAN. I, PADILLA BECKER, DOCUMENTED THE ABOVE INFORMATION ACTING A SCRIBE FOR DR. BISHOP. I HAVE REVIEWED THE ABOVE DOCUMENT, WRITTEN BY PADILLA LÓPEZIBCeleste AND I VERIFY THAT IT IS ACCURATE. PROCEDURE CODES 6045F RADXPS IN END [id number] PXD [id number] INJ PARAVERT F JNT L/S 1 LEV, MODIFIERS: 50 [id number] INJ PARAVERT F JNT L/S 2 LEV, MODIFIERS: 50 DISPOSITION & COMMUNICATION FOLLOW UP 3 WEEKS ELECTRONICALLY SIGNED BY ABIDA BISHOP MD, MD ON 02/08/2019 AT 07:52 PM EDT DISCLAIMER : THIS IS A VISIT SUMMARY EXTRACTED FROM THE [employer] CHART. IT IS NOT A COPY OF THE [employer] PROGRESS NOTE. MTDD
== END ==
LOC: M PAIN 08:45
PROVIDERS: ATTEND Anesthesiology
DX: G89.29 Other chronic pain (principal); M47.816 Spondylosis without myelopathy or radiculopathy, lumbar region; M47.817 Spondylosis without myelopathy or radiculopathy, lumbosacral region; E11.9 Type 2 diabetes mellitus without complications; E78.5 Hyperlipidemia, unspecified; E03.9 Hypothyroidism, unspecified; Z79.82 Long term (current) use of aspirin; Z79.899 Other long term (current) drug therapy; Z88.0 Allergy status to penicillin; Z88.8 Allergy status to other drugs, medicaments and biological substances
CPT/HCPCS: 64493; 64494; J3301; Q9967

== ENCOUNTER 2019-02-12 08:33 | Day surgery (SDC) | payer MEDICARE, BC, OTHER ==
[~2019-02-12] VITALS: Ht 154.9 cm; Wt 84.4 kg
[~2019-02-12 08:33] MED LIST changes: -BUPIVACAINE HCL 0.25% 30 ML VIAL As Ordered ONE; -CALC-176 PO; -D200CAP3 PO; -DICL1GEL3 TOP; -DOCU250C7 PO; -FERR1TAB8 PO; -FIBE625T PO; -FISH1000 PO; -FURO80TA2 PO; -GLUC1TAB58 PO; -ISOVUE-M 300 61% 15ML VIAL (Q9967) As Ordered ONE; -LIDOCAINE 1% SDV INJ 30 ML VIAL As Ordered ONE; +LIDOCAINE 2% INJ 100 MG/5 ML SDV (FOR ANES.) As Ordered ONE; -NU-M1TAB PO; -OMEP-221 PO; -POTA10TA67 PO; -POTA1TAB23 PO; +PROPOFOL 200 MG/20 ML VIAL As Ordered ONE; -SM STAB3 PO; -SYNT75TA PO; -TRIAMCINOLONE ACETONIDE SUSP 40 MG/ML VIAL (J3301) As Ordered ONE; -TYLE650T35 PO; -ULTR5TAB PO; -VITMTA PO; -ZYLO300T6 PO
[2019-02-12] MEDS ORDERED: NS 1,000 ML IV ONE (09:00)
--- NOTE | 2019-02-12 09:43 | ROOR ---
Patient Name: Pooja Armando Procedure Date: 02/12/2019 9:31 AM Date of : 1930 Age: 88 Room: [facility] Gender: Female Note Status: Finalized Procedure: Upper GI endoscopy Indications: Suspected esophageal reflux Providers: Lamine Gong Jr, MD Referring MD: Sima NUÑEZ MD Requesting Provider: Medicines: Propofol per Anesthesia Complications: No immediate complications. Procedure: Pre-Anesthesia Assessment: - Prior to the procedure, a History and Physical was performed, and patient medications and allergies were reviewed. The patient is competent. The risks and benefits of the procedure and the sedation options and risks were discussed with the patient. All questions were answered and informed consent was obtained. Patient identification and proposed procedure were verified by the physician and the nurse in the pre-procedure area and in the procedure room. Mental Status Examination: alert and oriented. Airway Examination: normal oropharyngeal airway and neck mobility. Respiratory Examination: clear to auscultation. CV Examination: normal. ASA Grade Assessment: II - A patient with mild systemic disease. After reviewing the risks and benefits, the patient was deemed in satisfactory condition to undergo the procedure. The anesthesia plan was to use moderate sedation / analgesia (conscious sedation). Immediately prior to administration of medications, the patient was re-assessed for adequacy to receive sedatives. The heart rate, respiratory rate, oxygen saturations, blood pressure, adequacy of pulmonary ventilation, and response to care were monitored throughout the procedure. The physical status of the patient was re-assessed after the procedure. The Endoscope was introduced through the mouth, and advanced to the second part of duodenum. The upper GI endoscopy was accomplished without difficulty. The patient tolerated the procedure well. Findings: The upper third of the esophagus, middle third of the esophagus and lower third of the esophagus were normal. A small hiatal hernia was present. The cardia, gastric fundus, gastric body and gastric antrum were normal. Diffuse mildly erythematous mucosa without bleeding was found in the prepyloric region of the stomach. Biopsies were taken with a cold forceps for histology. The duodenal bulb, first portion of the duodenum and second portion of the duodenum were normal. Impression: - Normal upper third of esophagus, middle third of esophagus and lower third of esophagus. - Small hiatal hernia. - Normal cardia, gastric fundus, gastric body and antrum. - Erythematous mucosa in the prepyloric region of the stomach. Biopsied. - Normal duodenal bulb, first portion of the duodenum and second portion of the duodenum. Recommendation: - Discharge patient to home (ambulatory). - Follow an antireflux regimen. Lamine Gong MD Lamine Gong Jr, MD 02/12/2019 9:42:46 AM Electronically signed by Lamine Gong Jr, MD Number of Addenda: 0 Note Initiated On: 02/12/2019 9:31 AM Estimated Blood Loss: Estimated blood loss: none.
[2019-02-12] MEDS ORDERED: PHENYLephrine HCL 500 MCG/5 ML (100MCG/ML) SYRINGE (J2370) As Ordered ONE (09:45)
--- NOTE | 2019-02-12 10:13 | ROOR ---
Patient Name: Pooja Armando Procedure Date: 02/12/2019 9:32 AM Date of : 1930 Age: 88 Room: [facility] Gender: Female Note Status: Finalized Procedure: Colonoscopy Indications: Rectal bleeding Providers: Lamine Gong Jr, MD Referring MD: Sima NUÑEZ MD Requesting Provider: Medicines: Propofol per Anesthesia Complications: No immediate complications. Procedure: Pre-Anesthesia Assessment: - Prior to the procedure, a History and Physical was performed, and patient medications and allergies were reviewed. The patient is competent. The risks and benefits of the procedure and the sedation options and risks were discussed with the patient. All questions were answered and informed consent was obtained. Patient identification and proposed procedure were verified by the physician and the nurse in the pre-procedure area and in the procedure room. Mental Status Examination: alert and oriented. Airway Examination: normal oropharyngeal airway and neck mobility. Respiratory Examination: clear to auscultation. CV Examination: normal. ASA Grade Assessment: II - A patient with mild systemic disease. After reviewing the risks and benefits, the patient was deemed in satisfactory condition to undergo the procedure. The anesthesia plan was to use moderate sedation / analgesia (conscious sedation). Immediately prior to administration of medications, the patient was re-assessed for adequacy to receive sedatives. The heart rate, respiratory rate, oxygen saturations, blood pressure, adequacy of pulmonary ventilation, and response to care were monitored throughout the procedure. The physical status of the patient was re-assessed after the procedure. The Colonoscope was introduced through the anus and advanced to the cecum, identified by appendiceal orifice and ileocecal valve. The Endoscope was introduced through the and advanced to. The colonoscopy was performed without difficulty. The patient tolerated the procedure well. The quality of the bowel preparation was adequate. Findings: Multiple small and large-mouthed diverticula were found in the sigmoid colon. A medium polyp was found in the ascending colon. The polyp was removed with a hot snare. Resection and retrieval were complete. The rectum, recto-sigmoid colon, descending colon, transverse colon, cecum, appendiceal orifice and ileocecal valve appeared normal. Non-bleeding external and internal hemorrhoids were found during retroflexion and during endoscopy. The hemorrhoids were Grade II (internal hemorrhoids that prolapse but reduce spontaneously) and Grade III (internal hemorrhoids that prolapse but require manual reduction). Two bands were successfully placed. There was no bleeding during the procedure. Impression: - Diverticulosis in the sigmoid colon. - One medium polyp in the ascending colon, removed with a hot snare. Resected and retrieved. - The rectum, recto-sigmoid colon, descending colon, transverse colon, cecum, appendiceal orifice and ileocecal valve are normal. - Non-bleeding external and internal hemorrhoids. Banded. Recommendation: - Repeat colonoscopy in 5-10 years for surveillance based on pathology results. Lamine Gong MD Lamine Gong Jr, MD 02/12/2019 10:12:48 AM Electronically signed by Lamine Gong Jr, MD Number of Addenda: 0 Note Initiated On: 02/12/2019 9:32 AM Estimated Blood Loss: Estimated blood loss: none.
[2019-02-12 10:30] VITALS: BP 123/78
== END 2019-02-12 10:38 | disposition home or self-care (01) ==
LOC: M OPP 08:33
PROVIDERS: ATTEND Surgery
DX: K63.5 Polyp of colon (principal); K64.1 Second degree hemorrhoids; K64.2 Third degree hemorrhoids; K57.30 Diverticulosis of large intestine without perforation or abscess without bleeding; K62.5 Hemorrhage of anus and rectum; K44.9 Diaphragmatic hernia without obstruction or gangrene; K29.60 Other gastritis without bleeding
CPT/HCPCS: 43239; 45385; 45398; 88305; J2370

== ENCOUNTER 2019-03-03 07:59 | Inpatient (IN) | payer MEDICARE, BC, OTHER ==
[~2019-03-03] VITALS: Ht 154.9 cm; Wt 89.5 kg
[~2019-03-03 07:59] MED LIST changes: -LIDOCAINE 2% INJ 100 MG/5 ML SDV (FOR ANES.) As Ordered ONE; -PROPOFOL 200 MG/20 ML VIAL As Ordered ONE
[2019-03-03 09:25] LABS: BASO # 0.1 10^3/uL (0.0-0.2); BASO % 0.7 % (0.0-1.0); EOS # 0.2 10^3/uL (0.0-0.50); EOS % 2.1 % (0.0-3.0); HEMATOCRIT 26.1 % (36.0-47.0); HEMOGLOBIN 8.1 g/dl (12.0-15.5); LYMPH # 1.9 10^3/uL (1.5-4.5); LYMPH % 27.5 % (24.0-44.0); MEAN CORPUSCULAR HEMOGLOBIN 30.8 pg (27.0-33.0); MEAN CORPUSCULAR VOLUME 99.2 fl (80.0-96.0); MONO # 0.5 10^3/uL (0.0-0.8); MONO % 6.8 % (0.0-5.0); NEUTROPHILS # 4.3 10^3/uL (1.8-7.7); NEUTROPHILS % 61.9 % (36.0-66.0); PLATELET COUNT, AUTOMATED 265 10^3/uL (150-450); RED BLOOD COUNT 2.63 10^6/uL (4.00-5.40)
[2019-03-03 09:33] LABS: ALBUMIN 2.8 GM/DL (3.2-5.2); ALT/SGPT 21 U/L (12-78); BILIRUBIN,DIRECT < 0.1 MG/DL (0.0-0.2); BILIRUBIN,TOTAL 0.2 MG/DL (0.2-1.0); BLOOD UREA NITROGEN 33 MG/DL (7-18); CALCIUM LEVEL 8.5 MG/DL (8.8-10.2); CARBON DIOXIDE LEVEL 26 MEQ/L (21-32); CHLORIDE LEVEL 107 MEQ/L (98-107); CREATININE FOR GFR 1.38 MG/DL (0.55-1.30); GLOMERULAR FILTRATION RATE 38.6 (>32); GLUCOSE, FASTING 155 MG/DL (70-100); LIPASE 262 U/L (73-393); POTASSIUM SERUM 3.5 MEQ/L (3.5-5.1); SODIUM LEVEL 140 MEQ/L (136-145); TOTAL PROTEIN 5.9 GM/DL (6.4-8.2)
[2019-03-03 09:59] LABS: INR 1.11; PROTHROMBIN TIME 14.4 SECONDS (12.1-14.4)
[2019-03-03] MEDS ORDERED: SM STAB3 PO (10:15)
[2019-03-03] MEDS ORDERED: DOCU250C7 PO (10:15)
[2019-03-03] MEDS ORDERED: ZYLO300T6 PO (10:15)
[2019-03-03] MEDS ORDERED: LOSA50TA88 PO (10:15)
[2019-03-03] MEDS ORDERED: ATOR1TAB21 PO (10:15)
[2019-03-03] MEDS ORDERED: VITA80003 PO (10:15)
[2019-03-03] MEDS ORDERED: FIBE625T PO (10:15)
[2019-03-03] MEDS ORDERED: FISH1000 PO (10:15)
[2019-03-03] MEDS ORDERED: ASPI81TA85 PO (10:15)
[2019-03-03] MEDS ORDERED: VITMTA PO (10:15)
[2019-03-03] MEDS ORDERED: POTA10TA67 PO (10:15)
[2019-03-03] MEDS ORDERED: CALC-176 PO (10:15)
[2019-03-03] MEDS ORDERED: NU-M1TAB PO (10:15)
[2019-03-03] MEDS ORDERED: FURO80TA2 PO (10:15)
[2019-03-03] MEDS ORDERED: GLUC1TAB58 PO (10:15)
[2019-03-03] MEDS ORDERED: POTA1TAB23 PO (10:15)
[2019-03-03] MEDS ORDERED: DULO1CAP PO (10:15)
[2019-03-03] MEDS ORDERED: DICL1GEL3 TOP (10:15)
[2019-03-03] MEDS ORDERED: TYLE650T35 PO (10:15)
[2019-03-03] MEDS ORDERED: FERR1TAB8 PO (10:15)
[2019-03-03] MEDS ORDERED: ULTR5TAB PO (10:15)
[2019-03-03] MEDS ORDERED: SYNT75TA PO (10:15)
[2019-03-03] MEDS ORDERED: D200CAP3 PO (10:15)
[2019-03-03] MEDS ORDERED: OMEP-221 PO (10:15)
[2019-03-03] MEDS ORDERED: GABA-843 PO (10:15)
[2019-03-03 12:29] LABS: HEMATOCRIT 25.6 % (36.0-47.0); HEMOGLOBIN 7.9 g/dl (12.0-15.5); MEAN CORPUSCULAR HEMOGLOBIN 30.3 pg (27.0-33.0); MEAN CORPUSCULAR HGB CONC 30.9 g/dl (32.0-36.5); MEAN CORPUSCULAR VOLUME 98.1 fl (80.0-96.0); PLATELET COUNT, AUTOMATED 270 10^3/uL (150-450); RED BLOOD COUNT 2.61 10^6/uL (4.00-5.40); WHITE BLOOD COUNT 8.6 10^3/uL (4.0-10.0)
[2019-03-03] MEDS ORDERED: ACETAMINOPHEN TAB 650MG DOSE (2X325MG) PO PRN (13:30)
[2019-03-03] MEDS: PANTOPRAZOLE 40MG INJ (PROTONIX) (C9113) IV SCH (14:12)
[2019-03-03] MEDS: DULoxetine 20 MG CAP (CYMBALTA) PO SCH (14:12)
[2019-03-03] MEDS: NS 1,000 ML IV SCH (14:12)
[2019-03-03 15:00] VITALS: BP 149/67
[2019-03-03 16:00] VITALS: BP 122/66
--- NOTE | 2019-03-03 16:11 | HPEPDOC ---
General Date of Admission Mar 03, 2019 at 10:34 Chief Complaint The patient is a 88-year-old female admitted with a reason for visit of Gi Blee d. Source: Patient, Family History of Present Illness The patient is a 88-year-old female who presents to the year with complaints of bright red bleeding per rectum. The patient underwent a EGD and colonoscopy with hot snare polypectomy and hemorrhoidal banding on 02/12/19. The patient reports she did well postprocedure and did not have any problems of bleeding thereafter. Reports that around 6:30 AM this morning, she woke up with a pressure in her l ower abdomen as if she had to have a bowel movement. She reports she got out of the bed but as she was doing so, she noticed that the sheets were soaked in blood. She reports that when she went to the bathroom, blood clots started pouring out from her rectum. She also felt a little dizzy. She also reported some shortness of breath as she was being brought to the ER. She reports she had called EMS following the bleeding episode and was brought to the ER. In the ER, patient was also noted to have her depends soaked in blood. She denies any associated abdominal pain other than some slight dullness in the suprapubic area/pressure in the suprapubic area rated as 3/10 in intensity which read on e started a short while before I went in to examine the patient. She denied any associated nausea or vomiting. Denies any associated chest palpitations. Denies taking any other blood thinners besides her daily baby aspirin. She reports feeling a little cold which is her baseline. Denies any associated fevers or sweats. Reports she had very slight bleeding a while ago but nothing recently otherwise. No other bleeding elsewhere. No previous problems with bleeding or clotting. Home Medications Scheduled Allopurinol (Zyloprim) 300 Mg Tablet, 300 MG PO DAILY, (Reported) TAKES AT NOON Aspirin (Aspir 81) 81 Mg Tablet.dr, 81 MG PO DAILY, (Reported) Atorvastatin Calcium (Atorvastatin Calcium) 20 Mg Tablet, 20 MG PO QHS, (Reported) B-Complex with Vitamin C (Super B Complex-Vitamin C) 1 Each Tablet, 1 TAB PO DAILY, (Reported) TAKES AT NOON Biotin (Biotin) 5,000 Mcg Tab.rapdis, 5 MG PO BID, (Reported) TAKES AM/NOON Calcium Citrate/Vitamin D3 (Calcium Cit-Vit D 250-200 Tab) 1 Each Tablet, 1 TAB PO BID, (Reported) TAKES AT NOON/DINNERTIME Calcium Polycarbophil (Fibercon) 625 Mg Tablet, 1,250 MG PO QPM, (Reported) TAKES AT DINNERTIME Cholecalciferol (Vitamin D3) (Vitamin D3) 2,000 Unit Capsule, 2,000 UNIT PO QPM, (Reported) TAKES AT DINNERTIME Docusate Sodium (Docusate Sodium) 250 Mg Capsule, 250 MG PO QHS, (Reported) Duloxetine Hcl (Duloxetine HCl) 20 Mg Capsule.dr, 40 MG PO DAILY, (Reported) TAKES AT NOON Ferrous Sulfate (Ferrous Sulfate) 325 Mg Tablet, 325 MG PO QPM, (Reported) TAKES WITH DINNER Furosemide (Furosemide) 80 Mg Tablet, 160 MG PO BID, (Reported) TAKES AM/1400 Gabapentin (Gabapentin) 300 Mg Capsule, 600 MG PO QHS, (Reported) Glucosamine/D3/Boswellia Dena (Osteo Bi-Flex Tablet) 1 Each Tablet, 1 EACH PO BID, (Reported) TAKES AT NOON/DINNERTIME Levothyroxine Sodium (Synthroid) 75 Mcg Tablet, 75 MCG PO QAM, (Reported) Losartan Potassium (Losartan Potassium) 50 Mg Tablet, 50 MG PO DAILY, (Reported) Magnesium Chloride (Nu-Mag) 71.5 Mg Tablet.dr, 2 TAB PO QHS, (Reported) Multivitamins (Thera M Plus Tablet) 1 Each Tablet, 1 TAB PO DAILY, (Reported) TAKES AT NOON [place]-3 Fatty Acids/Fish Oil (Fish Oil 1,000 mg Capsule) 1 Each Capsule, 1,000 MG PO BID, (Reported) Omeprazole (Omeprazole) 40 Mg Capsule.dr, 40 MG PO BID, (Reported) Potassium Chloride (Potassium Chloride) 10 Meq Tab.er.prt, 20 MEQ PO QHS, (Reported) Potassium Chloride (Potassium Chloride) 10 Meq Tablet.er, 10 MEQ PO QAM, (Reported) Vitamin A (Vitamin A) 8,000 Unit Capsule, 2,400 UNIT PO DAILY, (Reported) Scheduled PRN Acetaminophen (Tylenol Arthritis) 650 Mg Tablet.er, 650 MG PO Q8H PRN for PAIN, (Reported) Diclofenac Sodium (Diclofenac Sodium) 1% 100GM Gel..gram., 1 APLCT TOP QID PRN for PAIN, (Reported) APPLY TO KNEES/LEGS/FEET PRN Allergies Coded Allergies: Penicillins (Verified Allergy, Intermediate, REDNESS AND SWELLING, 02/12/19) lidocaine (Verified Allergy, Intermediate, LIDOCAINE - RED, SWELLING, ITCHING, 02/12/19) Past Medical History Medical History Anemia, diet-controlled diabetes mellitus, hypercholesterolemia, hypertension, arthritis, chronic back pain, chronic kidney disease, hemorrhoids Surgical History EGD and colonoscopy earlier this month, 2 toenail procedures Family History One sister passed from stroke, another sister has Alzheimer's, brother from cancer of throat secondary to smoking, mom at 87 and her father at 93 Social History * Smoker: other (smoked very briefly when she was 22-year-old. None since) Alcohol: rarely Drugs: denies Review of Systems Other systems Negative for 10 systems except as noted under history of present illness Physical Examination General Exam: Positive: Alert, Cooperative Eye Exam: Positive: PERRLA ENT Exam: Positive: Atraumatic, Mucous membr. moist/pink Chest Exam: Positive: Clear to auscultation, Normal air movement; Negative: Rales, Rhonchi, Wheezing Heart Exam: Positive: Rate Normal, Normal S1, Normal S2, Murmurs (3/6 systolic murmur) Abdomen Exam: Positive: BS Hyperactive, Soft; Negative: Tenderness Skin Exam: Positive: Nl turgor and temperature Neuro Exam: Positive: Other (awake, alert, oriented, answering questions appropriately and moving all 4 extremities) Psych Exam: Positive: Mental status NL Vital Signs Vital Signs Date Time Temp Pulse Resp B/P (MAP) Pulse Ox O2 Delivery O2 Flow Rate FiO2 03/03/19 14:20 96.8 65 20 122/58 (79) 100 Room Air Laboratory Data Labs 24H Laboratory Tests 2 03/03/19 08:57: Immature Granulocyte % (Auto) 1.0, White Blood Count 7.0, Red Blood Count 2.63L, Hemoglobin 8.1L, Hematocrit 26.1L, Mean Corpuscular Volume 99.2H, Mean Corpuscular Hemoglobin 30.8, Mean Corpuscular Hemoglobin Concent 31.0L, Red Cell Distribution Width 15.6H, Platelet Count 265, Neutrophils (%) (Auto) 61.9, Lymphocytes (%) (Auto) 27.5, Monocytes (%) (Auto) 6.8H, Eosinophils (%) (Auto) 2.1, Basophils (%) (Auto) 0.7, Neutrophils # (Auto) 4.3, Lymphocytes # (Auto) 1.9, Monocytes # (Auto) 0.5, Eosinophils # (Auto) 0.2, Basophils # (Auto) 0.1, Nucleated Red Blood Cells % (auto) 0.0, Prothrombin Time 14.4, Prothromb Time International Ratio 1.11, Anion Gap 7L, Glomerular Filtration Rate 38.6, Calcium Level 8.5L, Aspartate Amino Transf (AST/SGOT) 19, Alanine Aminotransferase (ALT/SGPT) 21, Alkaline Phosphatase 68, Total Bilirubin 0.2, Direct Bilirubin < 0.1, Total Protein 5.9L, Albumin 2.8L, Albumin/Globulin Ratio 0.90L, Lipase 262 03/03/19 12:16: Nucleated Red Blood Cells % (auto) 0.0 CBC/BMP Laboratory Tests 03/03/19 08:57 Red Blood Count 2.63 L, Mean Corpuscular Volume 99.2 H, Mean Corpuscular Hemoglobin 30.8, Mean Corpuscular Hemoglobin Concent 31.0 L, Red Cell Distribution Width 15.6 H, Neutrophils (%) (Auto) 61.9, Lymphocytes (%) (Auto) 27.5, Monocytes (%) (Auto) 6.8 H, Eosinophils (%) (Auto) 2.1, Basophils (%) (Auto) 0.7, Neutrophils # (Auto) 4.3, Lymphocytes # (Auto) 1.9, Monocytes # (Auto) 0.5, Eosinophils # (Auto) 0.2, Basophils # (Auto) 0.1 03/03/19 12:16 Red Blood Count 2.61 L, Mean Corpuscular Volume 98.1 H, Mean Corpuscular Hemoglobin 30.3, Mean Corpuscular Hemoglobin Concent 30.9 L, Red Cell Distribution Width 15.5 H Assessment/Plan Acute gastrointestinal bleed, suspect lower GI bleed possibly diverticular: -Patient has been typed and screened -H&H every 6 hours -Nothing by mouth except ice chips/water sips -IV fluids -IV Protonix -I will plan on transfusing if hemoglobin continues to dropcurrently does down to 7.9 from initial hemoglobin of 8.1. If Ongoing drops below 7.5, may be prudent to transfuse 1 unit PRBC given the amount of blood loss she has had, reported to be about 1 L by EMS -Avoid any blood thinners -Case was discussed with Dr. Gong from surgery who had performed the EGD/col onoscopy earlier this month Acute blood loss anemia on top of chronic baseline anemia -Management as noted above -Blood transfusion consent has been obtained Diet-controlled diabetes mellitus -Fingersticks every 6 hours. -May start sliding scale if fingersticks are running elevated Hypertension -We'll hold BP lowering medications including losartan and furosemide Hypercholesterolemia -Hold atorvastatin while nothing by mouth GI/DVT prophylaxis: -PPI/SCDs. No enoxaparin/heparin secondary to GI bleed CODE STATUS: -Full code Disposition: -Admit to telemetry as an inpatient. Anticipated length of stay more than 2 midnights. Anticipate eventual discharge home once medically stable. Plan / VTE VTE Prophylaxis Ordered?: Yes NEW GHOSH MD Mar 03, 2019 16:11
[2019-03-03 18:00] LABS: HEMOGLOBIN 8.3 g/dl (12.0-15.5)
[2019-03-03 20:00] VITALS: BP 126/58
[2019-03-03] MEDS: GABAPENTIN 300 MG CAP PO SCH (20:20)
--- NOTE | 2019-03-03 23:16 | ECGEPIP ---
Stationary ECG Study [facility] - ED Test Date: 2019-03-03 Pat Name: JULIO GALLARDO Department: Room: - Gender: F [employer]: TC : 1930 Requested By: Leeanna Villarreal Order Number: [id number] Reading MD: Kolby Gamble Measurements Intervals [place] Rate: 75 P: 11 LA: 185 QRS: -43 QRSD: 119 T: 60 QT: 399 QTc: 448 Interpretive Statements SINUS RHYTHM WITH OCCASIONAL SUPRAVENTRICULAR PREMATURE COMPLEXES LEFT AXIS DEVIATION PATTERN CONSISTENT WITH PULMONARY DISEASE MODERATE INTRAVENTRICULAR CONDUCTION DELAY SIMILAR TO 10/26/15 Electronically Signed On 03-03-2019 23:16:42 EDT by Kolby Gamble
[2019-03-04] VITALS (7 sets, daily range): BP systolic 104–130; BP diastolic 53–66
[2019-03-04 00:13] LABS: HEMATOCRIT 24.4 % (36.0-47.0); HEMOGLOBIN 7.6 g/dl (12.0-15.5)
[2019-03-04] MEDS: NS 1,000 ML IV SCH ×2 (03:10→18:46)
[2019-03-04] MEDS: LEVOTHYROXINE 75MCG TABLET (0.075MG) PO SCH (05:33)
[2019-03-04 06:20] LABS: HEMATOCRIT 22.5 % (36.0-47.0); HEMOGLOBIN 7.1 g/dl (12.0-15.5); MEAN CORPUSCULAR HEMOGLOBIN 30.5 pg (27.0-33.0); MEAN CORPUSCULAR HGB CONC 31.6 g/dl (32.0-36.5); MEAN CORPUSCULAR VOLUME 96.6 fl (80.0-96.0); PLATELET COUNT, AUTOMATED 247 10^3/uL (150-450); RED BLOOD COUNT 2.33 10^6/uL (4.00-5.40); WHITE BLOOD COUNT 7.6 10^3/uL (4.0-10.0)
[2019-03-04 06:50] LABS: ALBUMIN 2.5 GM/DL (3.2-5.2); BILIRUBIN,TOTAL 0.4 MG/DL (0.2-1.0); CALCIUM LEVEL 8.1 MG/DL (8.8-10.2); CREATININE FOR GFR 1.12 MG/DL (0.55-1.30); GLOMERULAR FILTRATION RATE 49.1 (>32); MAGNESIUM LEVEL 2.1 MG/DL (1.8-2.4); POTASSIUM SERUM 3.8 MEQ/L (3.5-5.1); TOTAL PROTEIN 5.7 GM/DL (6.4-8.2)
--- NOTE | 2019-03-04 08:30 | IPNPDOC ---
Text Note Date of Service The patient was seen on 03/04/19. NOTE Subjective: Patient seen and examined at bedside. No acute overnight events reported. No BM. Patient has no new medical complaints. Objective: General: NAD, lying comfortably in bed, elderly HEENT: NC/AT, EOMI Lungs: CTA B/L Heart: +S1S2, RRR, systolic murmur Abd: soft, obese, LLQ tenderness A/P: 88 yo female presents for bright red blood per rectum: #Acute gastrointestinal bleed, suspect lower GI bleed possibly diverticular: - transfuse 2 units PRBC - H/H trending down - continue serial H/H - surgical eval appreciated - ordered CLD -IV fluids -IV Protonix -Case previously was discussed with Dr. Gong from surgery who had performed the EGD/colonoscopy earlier this month #Acute blood loss anemia on top of chronic baseline anemia -Management as noted above #Diet-controlled diabetes mellitus -Fingersticks every 6 hours. -May start sliding scale if fingersticks are running elevated #Hypertension -We'll hold BP lowering medications including losartan and furosemide #Hypercholesterolemia -Hold atorvastatin while nothing by mouth #GI/DVT prophylaxis: -PPI/SCDs. No enoxaparin/heparin secondary to GI bleed #CODE STATUS: -Full code Disposition: -continue with serial H/H; surgery f/u; transfuse PRBC VS,Fishbone, I+O VS, Fishbone, I+O Laboratory Tests 03/03/19 08:57 Red Blood Count 2.63 L, Mean Corpuscular Volume 99.2 H, Mean Corpuscular Hemoglobin 30.8, Mean Corpuscular Hemoglobin Concent 31.0 L, Red Cell Distribution Width 15.6 H, Neutrophils (%) (Auto) 61.9, Lymphocytes (%) (Auto) 27.5, Monocytes (%) (Auto) 6.8 H, Eosinophils (%) (Auto) 2.1, Basophils (%) (Auto) 0.7, Neutrophils # (Auto) 4.3, Lymphocytes # (Auto) 1.9, Monocytes # (Auto) 0.5, Eosinophils # (Auto) 0.2, Basophils # (Auto) 0.1 03/03/19 12:16 Red Blood Count 2.61 L, Mean Corpuscular Volume 98.1 H, Mean Corpuscular Hemoglobin 30.3, Mean Corpuscular Hemoglobin Concent 30.9 L, Red Cell Distribution Width 15.5 H 03/03/19 17:48 03/04/19 00:04 03/04/19 05:42 Red Blood Count 2.33 L, Mean Corpuscular Volume 96.6 H, Mean Corpuscular Hemoglobin 30.5, Mean Corpuscular Hemoglobin Concent 31.6 L, Red Cell Distribution Width 15.4 H, Calcium Level 8.1 L, Aspartate Amino Transf (AST/SGOT) 19, Alanine Aminotransferase (ALT/SGPT) 20, Alkaline Phosphatase 66, Total Bilirubin 0.4 #, Total Protein 5.7 L, Albumin 2.5 L Vital Signs Date Time Temp Pulse Resp B/P (MAP) Pulse Ox O2 Delivery O2 Flow Rate FiO2 03/04/19 04:00 98.6 75 18 104/58 (73) 93 03/03/19 14:20 Room Air I&O- Last 24 Hours up to 6 AM 03/04/19 06:00 Intake Total 1020 ml Output Total 800 ml Balance 220 ml ROMÁN SIMONS MD Mar 04, 2019 08:30
[2019-03-04] MEDS: PANTOPRAZOLE 40MG INJ (PROTONIX) (C9113) IV SCH (08:41)
[2019-03-04] MEDS: DULoxetine 20 MG CAP (CYMBALTA) PO SCH (08:41)
[2019-03-04 12:14] LABS: HEMATOCRIT 25.6 % (36.0-47.0); HEMOGLOBIN 8.2 g/dl (12.0-15.5)
[2019-03-04 18:54] LABS: HEMOGLOBIN 9.4 g/dl (12.0-15.5)
[2019-03-04] MEDS: GABAPENTIN 300 MG CAP PO SCH (20:18)
[2019-03-05 04:00] VITALS: BP 133/60
[2019-03-05] MEDS: LEVOTHYROXINE 75MCG TABLET (0.075MG) PO SCH (06:03)
[2019-03-05] MEDS: NS 1,000 ML IV SCH (06:04)
[2019-03-05 06:58] LABS: HEMATOCRIT 27.2 % (36.0-47.0); HEMOGLOBIN 8.6 g/dl (12.0-15.5); MEAN CORPUSCULAR HEMOGLOBIN 30.3 pg (27.0-33.0); MEAN CORPUSCULAR HGB CONC 31.6 g/dl (32.0-36.5); MEAN CORPUSCULAR VOLUME 95.8 fl (80.0-96.0); PLATELET COUNT, AUTOMATED 224 10^3/uL (150-450); RED BLOOD COUNT 2.84 10^6/uL (4.00-5.40); WHITE BLOOD COUNT 8.2 10^3/uL (4.0-10.0)
--- NOTE | 2019-03-05 07:03 | CR ---
DATE OF CONSULTATION: 03/04/2019 The patient is 3 weeks out from a colonoscopy with polypectomy which revealed some significant diverticulosis and some hemorrhoids, but no significant other abnormalities. She ended up having some copious amounts of bloody bowel movements yesterday and when she was admitted really has not had any significant bowel movements or bloody bowel movements. This morning, she has been doing better and she has been ordered some blood, but otherwise states that she has not had any bowel movement since yesterday afternoon. She has not had any nausea. No vomiting. No crampy abdominal pain. No fevers or chills. PAST MEDICAL HISTORY: Significant for history of anemia, diet controlled diabetes mellitus, hypercholesterolemia, hypertension, arthritis, chronic back pain, chronic kidney disease, hemorrhoids. MEDICATIONS: Include allopurinol, aspirin, atorvastatin, B complex, biotin, calcium, vitamin D, Colace, duloxetine, iron, Lasix, gabapentin, glucosamine, Synthroid, losartan, Nu-Mag, Thera-M, fish oil, omeprazole, potassium and vitamin A. PHYSICAL EXAMINATION: Reveals an 88-year-old female who looks stated age. HEENT is unremarkable. Neck: Supple without adenopathy. Lungs: Clear to auscultation anteriorly. Heart is regular with multiple irregular beats. Abdomen is soft, nondistended, nontender. No guarding. No rebound. No peritoneal signs are appreciated. IMPRESSION AND PLAN: At this point, the patient has had some rectal bleeding and actually seems to have stopped already at this point. I do feel that she can start on some clear liquids and will see her later on today and possibly progress her to a regular diet. If she tolerates a regular diet and she does well in the morning tomorrow without any further bowel movements, she can probably be discharged home after that. The big question is what is the etiology of this rectal bleeding and the most likely thing that would be expected at this time would be diverticular bleeding. It is a little far out for the timing of a post polypectomy bleed. Typically, that occurs within the first week. It is much more significant than would be expected with hemorrhoidal bleeding. Possibly an AV malformation could be present, but I did not appreciate one on the colonoscopy and an upper GI or small bowel lesion seems less likely as well at this time given the pattern of her bowel movements. Thus, if she has any active bleeding over the next 24-48 hours, I would recommend a bleeding scan to help identify where the bleeding is located and then we would proceed with an endoscopy upper and lower while she is here. However, if she stabilizes, then will reevaluate her as an outpatient in the next week or two and discuss our plans for her.
[2019-03-05 07:20] LABS: BLOOD UREA NITROGEN 16 MG/DL (7-18); CALCIUM LEVEL 7.9 MG/DL (8.8-10.2); CARBON DIOXIDE LEVEL 25 MEQ/L (21-32); CHLORIDE LEVEL 113 MEQ/L (98-107); CREATININE FOR GFR 0.89 MG/DL (0.55-1.30); GLOMERULAR FILTRATION RATE > 60.0 (>32); GLUCOSE, FASTING 101 MG/DL (70-100); POTASSIUM SERUM 3.6 MEQ/L (3.5-5.1); SODIUM LEVEL 143 MEQ/L (136-145)
[2019-03-05] MEDS: DULoxetine 20 MG CAP (CYMBALTA) PO SCH (08:56)
[2019-03-05] MEDS: PANTOPRAZOLE 40MG INJ (PROTONIX) (C9113) IV SCH (08:56)
[2019-03-05 12:00] VITALS: BP 159/66
[2019-03-05 12:34] LABS: HEMATOCRIT 28.7 % (36.0-47.0)
--- NOTE | 2019-03-05 22:07 | DS.PDOC ---
Discharge Summary General Date of Admission Mar 03, 2019 at 10:34 Date of Discharge 03/05/19 Specialist/Consultants Involve: Lamine Gong Jr Discharge Summary PROCEDURES PERFORMED DURING STAY: [None]. DISCHARGE DIAGNOSES: #Acute gastrointestinal bleed, suspect lower GI bleed possibly diverticular: #Acute blood loss anemia on top of chronic baseline anemia #Diet-controlled diabetes mellitus #Hypertension #Hypercholesterolemia #CODE STATUS: -Full code COMPLICATIONS/CHIEF COMPLAINT: Gi Bleed. HISTORY OF PRESENT ILLNESS: The patient is a 88-year-old female who presented to the ED with complaints of bright red bleeding per rectum. The patient underwent a EGD and colonoscopy with hot snare polypectomy and hemorrhoidal banding on 02/12/19. The patient reported she did well postprocedure and did not have any problems of bleeding thereafter. Reported, she woke up with a pressure in her lower abdomen as if she had to have a bowel movement. She reported she got out of bed but as she was doing so, she noticed that the sheets were soaked in blood. She reported that when she went to the bathroom, blood clots started pouring out from her rectum. She also felt a little dizzy. She also reported some shortness of breath as she was being brought to the ER. She reported she had called EMS following the bleeding episode and was brought to the ER. In the ER, patient was also noted to have her depends soaked in blood. She denied any associated abdominal pain other than some slight dullness in the suprapubic area/pressure in the suprapubic area rated as 3/10 in intensity which read on the started a short while before I went in to examine the patient. She denied any associated nausea or vomiting, chest palpitations. Denied taking any other blood thinners besides her daily baby aspirin. She reported feeling a little cold which is her baseline. Denied any associated fevers or sweats. Reported she had very slight bleeding a while ago but nothing recently otherwise. No other bleeding elsewhere. No previous problems with bleeding or clotting. HOSPITAL COURSE: Patient admitted for further evaluation and treatment, home anti-hypertensive and aspirin therapy held. Surgery consulted for further assistance. Required 2 units PRBC on admission, and Hgb remained stable with no further episodes of bleeding. Surgery recommendations for discharge and outpatient follow up. DISCHARGE MEDICATIONS: Please see below. ALLERGIES: Please see below. PHYSICAL EXAMINATION ON DISCHARGE: VITAL SIGNS: Please see below. General: NAD, sitting comfortably in chair, elderly HEENT: NC/AT, EOMI Lungs: CTA B/L Heart: +S1S2, RRR, systolic murmur Abd: soft, obese, LLQ tenderness A/P: 88 yo female presents for bright red blood per rectum: LABORATORY DATA: Please see below. ACTIVITY: [As tolerated]. DISPOSITION: 01 Home, Self-Care. DISCHARGE INSTRUCTIONS: 1. Follow up PCP in 3-5 days. 2. Follow up surgery Dr. Gong in 2-3 weeks. 3. Hold aspirin pending re-eval by PCP. DISCHARGE CONDITION: [Stable]. TIME SPENT ON DISCHARGE: Greater than 30 minutes. Vital Signs/I&Os Vital Signs Date Time Temp Pulse Resp B/P (MAP) Pulse Ox O2 Delivery O2 Flow Rate FiO2 03/05/19 12:00 97.7 61 18 159/66 (97) 97 03/03/19 14:20 Room Air I&O- Last 24 Hours up to 6 AM 03/05/19 06:00 Intake Total 4418 ml Output Total 1300 ml Balance 3118 ml Laboratory Data Labs 24H Laboratory Tests 2 03/05/19 06:40: Nucleated Red Blood Cells % (auto) 0.2H, Anion Gap 5L, Glomerular Filtration Rate > 60.0, Blood Urea Nitrogen 16, Creatinine 0.89, Sodium Level 143, Potassium Level 3.6, Chloride Level 113H, Carbon Dioxide Level 25, Calcium Level 7.9L CBC/BMP Laboratory Tests 03/05/19 06:40 Red Blood Count 2.84 L, Mean Corpuscular Volume 95.8, Mean Corpuscular Hemoglobin 30.3, Mean Corpuscular Hemoglobin Concent 31.6 L, Red Cell Distribution Width 16.8 H, Calcium Level 7.9 L 03/05/19 12:18 Discharge Medications Scheduled Allopurinol (Zyloprim) 300 Mg Tablet, 300 MG PO DAILY, (Reported) TAKES AT NOON Atorvastatin Calcium (Atorvastatin Calcium) 20 Mg Tablet, 20 MG PO QHS, (Reported) B-Complex with Vitamin C (Super B Complex-Vitamin C) 1 Each Tablet, 1 TAB PO DAILY, (Reported) TAKES AT NOON Biotin (Biotin) 5,000 Mcg Tab.rapdis, 5 MG PO BID, (Reported) TAKES AM/NOON Calcium Citrate/Vitamin D3 (Calcium Cit-Vit D 250-200 Tab) 1 Each Tablet, 1 TAB PO BID, (Reported) TAKES AT NOON/DINNERTIME Calcium Polycarbophil (Fibercon) 625 Mg Tablet, 1,250 MG PO QPM, (Reported) TAKES AT DINNERTIME Cholecalciferol (Vitamin D3) (Vitamin D3) 2,000 Unit Capsule, 2,000 UNIT PO QPM, (Reported) TAKES AT DINNERTIME Docusate Sodium (Docusate Sodium) 250 Mg Capsule, 250 MG PO QHS, (Reported) Duloxetine Hcl (Duloxetine HCl) 20 Mg Capsule.dr, 40 MG PO DAILY, (Reported) TAKES AT NOON Ferrous Sulfate (Ferrous Sulfate) 325 Mg Tablet, 325 MG PO QPM, (Reported) TAKES WITH DINNER Furosemide (Furosemide) 80 Mg Tablet, 160 MG PO BID, (Reported) TAKES AM/1400 Gabapentin (Gabapentin) 300 Mg Capsule, 600 MG PO QHS, (Reported) Glucosamine/D3/Boswellia Dena (Osteo Bi-Flex Tablet) 1 Each Tablet, 1 EACH PO BID, (Reported) TAKES AT NOON/DINNERTIME Levothyroxine Sodium (Synthroid) 75 Mcg Tablet, 75 MCG PO QAM, (Reported) Losartan Potassium (Losartan Potassium) 50 Mg Tablet, 50 MG PO DAILY, (Reported) Magnesium Chloride (Nu-Mag) 71.5 Mg Tablet.dr, 2 TAB PO QHS, (Reported) Multivitamins (Thera M Plus Tablet) 1 Each Tablet, 1 TAB PO DAILY, (Reported) TAKES AT NOON [place]-3 Fatty Acids/Fish Oil (Fish Oil 1,000 mg Capsule) 1 Each Capsule, 1,000 MG PO BID, (Reported) Omeprazole (Omeprazole) 40 Mg Capsule.dr, 40 MG PO BID, (Reported) Potassium Chloride (Potassium Chloride) 10 Meq Tab.er.prt, 20 MEQ PO QHS, (Reported) Potassium Chloride (Potassium Chloride) 10 Meq Tablet.er, 10 MEQ PO QAM, (Re ported) Vitamin A (Vitamin A) 8,000 Unit Capsule, 2,400 UNIT PO DAILY, (Reported) Scheduled PRN Acetaminophen (Tylenol Arthritis) 650 Mg Tablet.er, 650 MG PO Q8H PRN for PAIN, (Reported) Diclofenac Sodium (Diclofenac Sodium) 1% 100GM Gel..gram., 1 APLCT TOP QID PRN for PAIN, (Reported) APPLY TO KNEES/LEGS/FEET PRN Allergies Coded Allergies: Penicillins (Verified Allergy, Intermediate, REDNESS AND SWELLING, 02/12/19) lidocaine (Verified Allergy, Intermediate, LIDOCAINE - RED, SWELLING, ITCHING, 02/12/19) ROMÁN SIMONS MD Mar 05, 2019 22:03
== END 2019-03-05 13:30 | disposition home or self-care (01) | DRG 378 ==
LOC: M ED 07:59 → M ED INP 10:34 → M PCU 14:45 → M MS4PR 03-04 21:40
PROVIDERS: ADMIT Internal Medicine; ATTEND Internal Medicine
PROC: 30233N1 Transfusion of Nonautologous Red Blood Cells into Peripheral Vein, Percutaneous Approach (ICD-10-PCS; principal; 2019-03-04)
DX: K57.93 Diverticulitis of intestine, part unspecified, without perforation or abscess with bleeding (principal); D62 Acute posthemorrhagic anemia; E11.9 Type 2 diabetes mellitus without complications; E78.00 Pure hypercholesterolemia, unspecified; I12.9 Hypertensive chronic kidney disease with stage 1 through stage 4 chronic kidney disease, or unspecified chronic kidney disease; Z79.899 Other long term (current) drug therapy; Z88.0 Allergy status to penicillin; Z88.8 Allergy status to other drugs, medicaments and biological substances; Z79.82 Long term (current) use of aspirin; M19.90 Unspecified osteoarthritis, unspecified site; M54.5 Low back pain; N18.9 Chronic kidney disease, unspecified

== ENCOUNTER 2019-05-22 12:23 | Day surgery (SDC) | payer MEDICARE, BC, OTHER ==
[~2019-05-22] VITALS: Ht 152.4 cm; Wt 86.2 kg
[~2019-05-22 12:23] MED LIST changes: +CALC-176 PO; +D200CAP3 PO; +DICL1GEL3 TOP; +DOCU250C7 PO; -DULO1CAP PO; +DULO1CAP4 PO; +FERR1TAB8 PO; +FIBE625T PO; +FISH1000 PO; +FURO80TA2 PO; +GLUC1TAB58 PO; +LR 1,000 ML IV ONE; +NU-M1TAB PO; +OMEP-221 PO; -OMEP20CA3 PO; +OMEP20CA4 PO; +POTA10TA67 PO; +POTA1TAB23 PO; +SM STAB3 PO; +SYNT75TA PO; +TYLE650T35 PO; +ULTR5TAB PO; +VITMTA PO; +ZYLO300T6 PO
[2019-05-22] MEDS ORDERED: fentaNYL 100 MCG/2 ML INJECTION (J3010) As Ordered ONE (13:00)
[2019-05-22] MEDS ORDERED: PROPOFOL 200 MG/20 ML VIAL As Ordered ONE ×2 (13:00→14:19)
[2019-05-22] MEDS ORDERED: LIDOCAINE 2% INJ 100 MG/5 ML SDV (FOR ANES.) As Ordered ONE (13:00)
[2019-05-22] MEDS ORDERED: ONDANSETRON 4MG/2ML VIAL (J2405) As Ordered ONE (13:01)
[2019-05-22] MEDS ORDERED: CETACAINE SPRAY 5GM As Ordered ONE (13:59)
[2019-05-22] MEDS ORDERED: ePHEDrine SULFATE 25 MG/5 ML(5MG/ML) SYRINGE As Ordered ONE (14:17)
[2019-05-22 15:30] VITALS: BP 155/67
--- NOTE | 2019-05-22 17:08 | T-ECHO ---
DATE OF PROCEDURE: 05/22/2019 REFERRING PHYSICIAN: Dr. Joesph Ortiz INDICATION: Pre-Watchman KADIE. POSTPROCEDURE DIAGNOSIS: Pre-Watchman KADIE and presence of patent foramen ovale. PROCEDURE PERFORMED: Transesophageal echocardiogram with bubble study. PROCEDURE PERFORMED BY: Joesph Ortiz MD PRIMER ASSEMBLER: None. IV SEDATION: Propofol IV per CONSUMER SAFETY INSPECTOR. PRINCIPAL FINDINGS: Presence of patent foramen ovale. No left atrial appendage thrombus. Left atrial enlargement. COMPLICATIONS: None. DESCRIPTION OF PROCEDURE: Rhythm was sinus. Patient received intravenous (IV) sedation with propofol as supplied by the CONSUMER SAFETY INSPECTOR. The patient tolerated the procedure well without complications. Esophageal intubation was accomplished without difficulty by Dr. Ortiz using a Radha three-dimensional transesophageal echocardiogram probe. The left ventricle appeared normal in size and systolic function and without regional wall motion abnormalities. Left ventricle ejection fraction was 65% by visual estimate. Right ventricle appeared normal in size and systolic function. The left atrium appeared to be enlarged. The left atrial appendage appeared to be enlarged and was without thrombus. No thrombus or spontaneous echocontrast were seen within the atria or their appendages. The intraatrial septum was anatomically highly suspicious for presence of a small patent foramen ovale, and this was confirmed by color flow Doppler and by bubble study with a very small amount of bubbles seen crossing from the right atrium to the left atrium via the patent foramen ovale (PFO). The bubble study was performed using 1 mL of propofol with 1 mL of air and 8 mL of normal saline, which was syringed back and forth to agitate them between two 10 mL syringes via three-way stopcocks. This was injected by the nurse earth science faculty member. No pericardial effusion. Aortic valve was 3-cusp and displayed moderate focal thickening and focal calcific deposits. No aortic stenosis or regurgitation. Mitral leaflets appeared structurally normal. Very mild mitral regurgitation was present. Tricuspid and pulmonic valves were only moderately well visualized but appeared to be normal. Distal aortic arch and descending thoracic aorta showed mild atherosclerosis. Detailed measurements of the left atrial appendage were made as follows: At 0 degrees, width of the left atrial appendage was 2.1 cm with length of 3.1 cm. At 45 degrees, width 2.0 cm, length 3.1 cm. At 90 degrees, width 1.4 cm, length 3.9 cm. At 135 degrees, width 2.0 cm, length 3.1 cm. CONCLUSIONS: 1. Left atrial appendage measurements as above. It appears to be suitable for placement of a Watchman left atrial occluder device. No thrombus in the left atrial appendage. 2. Left atrial dilatation. 3. Normal left ventricle size and systolic function. Left ventricular ejection fraction (LVEF) 65% by visual estimate. 4. Moderate aortic valve sclerosis of a 3-cusp aortic valve. No aortic regurgitation or stenosis. 5. Small patent foramen ovale with a small amount of bubble shunting and color flow Doppler shunting from right atrium to left atrium. 6. Mild atherosclerosis involving the distal aortic arch and descending thoracic aorta.
== END 2019-05-22 15:40 | disposition home or self-care (01) ==
LOC: M SDC 12:23
PROVIDERS: ATTEND Internal Medicine Cardiovascular Disease
DX: I48.0 Paroxysmal atrial fibrillation (principal); I23.6 Thrombosis of atrium, auricular appendage, and ventricle as current complications following acute myocardial infarction; I35.0 Nonrheumatic aortic (valve) stenosis; I12.9 Hypertensive chronic kidney disease with stage 1 through stage 4 chronic kidney disease, or unspecified chronic kidney disease; E78.5 Hyperlipidemia, unspecified; E03.9 Hypothyroidism, unspecified; R73.03 Prediabetes; K21.9 Gastro-esophageal reflux disease without esophagitis; D64.9 Anemia, unspecified; N18.3 Chronic kidney disease, stage 3 (moderate); Z88.0 Allergy status to penicillin; Z79.899 Other long term (current) drug therapy
CPT/HCPCS: 93312; 93320; 93325; J2405; J3010

== ENCOUNTER 2019-08-12 11:49 | Day surgery (SDC) | payer MEDICARE, BC, OTHER ==
[~2019-08-12] VITALS: Ht 154.9 cm; Wt 82.1 kg
[~2019-08-12 11:49] MED LIST changes: -LR 1,000 ML IV ONE
[2019-08-12] MEDS ORDERED: ELIQ5TAB PO (12:43)
[2019-08-12] MEDS ORDERED: CETACAINE SPRAY 5GM As Ordered ONE (15:08)
[2019-08-12] MEDS ORDERED: MIDAZOLAM INJ 2 MG/2 ML VIAL (J2250) As Ordered ONE (15:15)
[2019-08-12 16:20] VITALS: BP 133/62
--- NOTE | 2019-08-12 18:28 | T-ECHO ---
DATE OF PROCEDURE: 08/12/2019 INDICATION: 45 day post-watchman left atrial closure device transesophageal echocardiogram. PREPROCEDURE DIAGNOSIS: 45 day post-watchman left atrial closure device transesophageal echocardiogram. POSTPROCEDURE DIAGNOSIS: 45 day post-watchman left atrial closure device transesophageal echocardiogram. PROCEDURE DESCRIPTION: Patient received Cetacaine spray to the back of the pharynx. She received a total of 4 mg midazolam IV for IV sedation. Patient tolerated the procedure well without any immediate complications. Rhythm was atrial fibrillation. Esophageal intubation was accomplished by Dr. Ortiz using a Kan two dimensional phased ray transesophageal echocardiogram probe. The left and right ventricles appeared normal in size and systolic function. LVEF of 65% by visual estimate. No regional wall motion abnormality of the left ventricle. Left ventricle wall thickness appeared normal. The left atrium appeared enlarged. Atrial septum was intact anatomically and by color flow Doppler. No residual Atrial septal defect from previous transeptal puncture was identified. A left atrial appendage closure device (watchman) is well seated in the left atrial appendage and there was a 1 mm gap with a small amount of color flow Doppler along the lateral aspect of the left atrial appendage adjacent to the lateral edge of the closure device. No thrombi was seen on the left atrial appendage. Pulmonary vein flow in the left upper pulmonary vein by pulsed wave Doppler was consistent with atrial fibrillation. Left atrium appeared to be enlarged. Right atrium appeared normal in size. Mitral valve was normal with mild mitral regurgitation within normal limits. Mild aortic valve sclerosis was present. No aortic regurgitation. Pulmonic valve was normal. Tricuspid valve was normal. No pericardial effusion. Distal aortic arch and ascending thoracic aorta showed mild atherosclerotic plaque. CONCLUSIONS: 1. No thrombus on the Watchman left atrial closure device. 1 mm gap with a small amount of flow along the lateral aspect of the left atrial appendage adjacent to the lateral aspect of the left atrial appendage closure device. 2. Mild aortic valve sclerosis. 3. Normal left ventricle size and systolic function. 4. Mild atherosclerosis involving the distal aortic arch and descending thoracic aorta. ADDITIONAL COMMENTS AND RECOMMENDATIONS: Patient received instructions as well as her for the patient to discontinue Eliquis and begin Plavix 75 mg daily. She is to continue aspirin.
== END 2019-08-12 16:34 | disposition home or self-care (01) ==
LOC: M SDC 11:49
PROVIDERS: ATTEND Internal Medicine Cardiovascular Disease
DX: I23.6 Thrombosis of atrium, auricular appendage, and ventricle as current complications following acute myocardial infarction (principal); Z95.818 Presence of other cardiac implants and grafts; I35.0 Nonrheumatic aortic (valve) stenosis; Z79.02 Long term (current) use of antithrombotics/antiplatelets; Z88.0 Allergy status to penicillin; Z88.6 Allergy status to analgesic agent
CPT/HCPCS: 93312; 93320; 93325; J2250

== ENCOUNTER → 2020-05-23 | Outpatient (REF) | payer MEDICARE, OTHER ==
[~2020-05-23] MED LIST changes: +ACET650T61 PO; -ASPI81TA85 PO; +ASPI81TA86 PO; +CALC-212 PO; -CALC600T7 PO; +ELIQ5TAB PO; +OMEP1CAP73 PO; -OMEP20CA4 PO; -TYLE650T35 PO
[2020-05-25 08:10] LABS: LDL DIRECT 72 mg/dL (0-99)
== END ==
LOC: M LAB REF 16:58
PROVIDERS: ATTEND Internal Medicine
DX: E78.00 Pure hypercholesterolemia, unspecified (principal)

== ENCOUNTER → 2020-09-06 | Outpatient (REF) | payer MEDICARE, OTHER ==
[2020-09-08 08:09] LABS: LDL DIRECT 74 mg/dL (0-99)
== END ==
LOC: M LAB REF 16:14
PROVIDERS: ATTEND Internal Medicine
DX: E78.00 Pure hypercholesterolemia, unspecified (principal)

== ENCOUNTER → 2020-11-29 | Outpatient (CLI) | payer SELFPAY ==
[~2020-11-29] MED LIST changes: +GABA-282 PO; -GABA-843 PO; -STOO1CAP9 PO; +STOO240C PO
== END ==
LOC: M LABSMTC 11:50
PROVIDERS: ATTEND Pediatrics
DX: Z20.822 Contact with and (suspected) exposure to COVID-19 (principal)

== ENCOUNTER → 2021-05-26 | Outpatient (REF) | payer MEDICARE, OTHER ==
[2021-05-28 08:13] LABS: LDL DIRECT 68 mg/dL (0-99)
== END ==
LOC: M LAB REF 16:53
PROVIDERS: ATTEND Internal Medicine
DX: E78.00 Pure hypercholesterolemia, unspecified (principal)